=== PATIENT | male | born 1975 | race Caucasian/White ===

== ENCOUNTER → 2017-12-30 08:12 | Outpatient (CLI) | payer OTHER, SELFPAY ==
[2017-12-29 14:38] VITALS: BMI 31.8
[2017-12-30 09:54] LABS: AST(SGOT) 45 U/L (15-37); Alanine Aminotransfer ALT/SGPT 114 U/L (16-61); Albumin, Serum 3.8 g/dL (3.2-5.0); Alkaline Phosphatase 71 U/L (45-117); Cholesterol 224 mg/dL (200); Globulin 3.4 g/dL (2.2-4.2); High Density Lipoprotein 31 mg/dL; Protein, Total 7.2 g/dL (6.4-8.2); Triglycerides 319 mg/dL; Very Low Density Lipoprotein 64 mg/dL (5-40)
== END ==
PROVIDERS: Family Provider Family Medicine; PCP Family Medicine; Referring Provider Internal Medicine Cardiovascular Disease; Visit Provider Internal Medicine Cardiovascular Disease
DX: E78.5 Hyperlipidemia, unspecified (principal)
CPT/HCPCS: 36415; 80061; 80076

== ENCOUNTER → 2018-01-14 07:48 | Outpatient (CLI) | payer OTHER, SELFPAY ==
[2017-12-29 14:38] VITALS: BMI 31.8
--- NOTE | 2018-01-14 07:49 | ECHOD_ITS ---
Reason For Study: CAD/ASHD Procedure This was a 2D Doppler, Color Flow transthoracic echocardiogram. Exam performed in department. Left Ventricle Normal size and thickness. The estimated ejection fraction is 65 %. Normal diastology for age. No regional wall motion abnormalities noted. Right Ventricle Normal size and thickness. Normal systolic function. Atria Normal left atrium. Normal right atrium. Normal atrial septum. Mitral Valve The mitral valve is structurally normal. No prolapse or stenosis seen. Trivial mitral valve insufficiency. Tricuspid Valve Normal tricuspid valve. Trivial tricuspid valve insufficiency. Right ventricular systolic pressure estimated to be 16 mmHg. Aortic Valve Normal aortic valve. Trisinus/trileaflet aortic valve. Pulmonic Valve Normal pulmonic valve. Trivial pulmonic valve insufficiency. Great Vessels Normal aortic root. Normal arch. Normal inferior vena cava. Inferior vena cava collapse with sniff. Pericardium/Pleural No pericardial effusion. MMode/2D Measurements & Calculations LVIDd: 5.5 cm IVSd: 1.1 cm Ao root diam: 3.7 cm LVIDs: 3.8 cm LVPWd: 1.1 cm RVDd: 3.4 cm FS: 31.9 % LAV(MOD-bp): 63.0 ml LA A4 area: 20.7 cm2 LA dimension(2D): 4.2 cm LAV(MOD-bp) Indexed: 28.4 ml/m2 LAV(MOD-sp2): 62.7 ml LAV(MOD-sp4): 62.9 ml RA A4 area: 16.6 cm2 Time Measurements MV dec time: 0.22 sec Doppler Measurements & Calculations MV E max angel: 86.7 cm/sec Lat Peak E' Angel: 11.3 cm/sec Med Peak E' Angel: 9.0 cm/sec MV A max angel: 75.0 cm/sec E/E' lat: 7.7 E/E' med: 9.6 MV E/A: 1.2 Ao V2 max: 113.3 cm/sec LV V1 max: 93.7 cm/sec PA V2 max: 100.5 cm/sec Ao max P.1 mmHg LV V1 max P.5 mmHg PI end-d angel: 100.8 cm/sec TR max angel: 165.5 cm/sec TR max P.0 mmHg Interpretation Summary The estimated ejection fraction is 65 %. Normal diastology for age. Trivial mitral valve insufficiency. Trivial tricuspid valve insufficiency. Right ventricular systolic pressure estimated to be 16 mmHg. There is no comparison study available. Ordering Physician: Leighton Cheung Referring Physician: Tutu Hicks Performed By: Yanni Garcia RDCS, RVT
== END ==
PROVIDERS: Family Provider Family Medicine; PCP Family Medicine; Referring Provider Internal Medicine Cardiovascular Disease; Visit Provider Internal Medicine Cardiovascular Disease
DX: I25.10 Atherosclerotic heart disease of native coronary artery without angina pectoris (principal); I36.1 Nonrheumatic tricuspid (valve) insufficiency; I25.2 Old myocardial infarction; Z95.1 Presence of aortocoronary bypass graft; Z86.74 Personal history of sudden cardiac arrest
CPT/HCPCS: 93306

== ENCOUNTER → 2018-01-20 10:24 | Outpatient (CLI) | payer OTHER, SELFPAY ==
[2017-12-29 14:38] VITALS: BMI 31.8
--- NOTE | 2018-01-20 10:25 | STEWCON_ITS ---
Reason For Study: CAD Stress Results Protocol: Zach Protocol Maximum Predicted HR: 177 bpm Target HR: 150 bpm % Maximum Predicted HR: 93 % DurationHeart Rate Stage (mm:ss) (bpm) BP Comment Baseline 83 116/72No Chest Pain; Definity 0.4 ML Given Zach Protocol Stage I 3:00 121 134/70No Chest Pain Zach Protocol Stage II 3:00 148 146/64No Chest Pain Zach Protocol Stage III 1:01 164 / No Chest Pain; Heel Spur Inflamed Recovery 90 124/78No Chest Pain Stress Duration: 7:01 mm:ss Maximum Stress HR: 164 bpm METS: 10 Baseline Echocardiogram Findings The estimated ejection fraction is 50-55 %. Stress Echo Wall motion Data Resting WM Intermediate WM Stress WM Resting Wall Motion Wall Motion Stress Mid-Anterior : Mildly No regional wall motion hypokinetic. abnormalities noted. EKG Data Normal intervals are noted. The patient exercised according to the regular Zach protocol for a total duration of 7:01. The maximum heart rate attained was 184 beats per minute. This was 103% of maximum predicted heart rate. The patient exercised into stage 3 of the Zach protocol. During stress, there were no ST or T wave changes noted to suggest ischemia. No clinical angina was noted. Interpretation Summary The study was technically difficult. Contrast injection was performed. The estimated ejection fraction is 50-55 %. Mid-Anterior : Mildly hypokinetic Probably normal, adequate, treadmill echocardiogram. Negative for ischemia by EKG and echocardiographic criteria. Pt had subtle baseline mid anterior hypokinesis wihich improved at peak exercise. No anginal symptoms noted. Rare PVC noted. Appropriate blood pressure response to exercise. Average exercise capacity for age. Final LVEF is 4675%. Test terminated due to bone spur in his heal. Decreased sensitivity due to poor echo windows requiring Definity enhancement. No complications. Ordering Physician: Leighton Cheung Referring Physician: Leighton Cheung Performed By: Nancy Hill, RDCS, RVT
--- OUTSIDE RECORDS SUMMARY | 2018-03-08 12:09 | XMS RPT_ITS ---
:1975 Author Organization [facility] Care Team Providers Name Role Phone ZITA DUTTA Referring Unavailable MAXIM GALO Attending Unavailable MAXIM GALO Attending Unavailable MAXIM GALO Referring Unavailable Leighton Cheung Attending Unavailable Leighton Cheung Referring Unavailable Tutu Hicks Primary Care Unavailable Leighton Cheung Consulting Unavailable Leighton Cheung Attending Unavailable Leighton Cheung Referring Unavailable Brown, Tutu Primary Care Unavailable Leighton Cheung Attending Unavailable Brown, Tutu Referring Unavailable Leighton Cheung Attending Unavailable Jonatan, Leighton Referring Unavailable Brown, Tutu Primary Care Unavailable Leighton Cheung Attending Unavailable Leighton Cheung Referring Unavailable Brown, Tutu Primary Care Unavailable Leighton Cheung Attending Unavailable Leighton Cheung Referring Unavailable Brown, Tutu Primary Care Unavailable Leighton Cheung Attending Unavailable Leighton Cheung Referring Unavailable Brown, Tutu Primary Care Unavailable Leighton Cheugn Consulting Unavailable PROBLEMS PROBLEMS DATE TYPE CONDITION / CODE ATTENDING STATUS SOURCE 01/20/2018 Unknown I25.10 - Leighton Cheung Active [facility] Atherosclerotic heart Community disease of [facility] coronary artery Repository without angina pectoris / I25.10(ICD-10) 01/20/2018 Unknown I25.2 - Old Leighton Cheung Active [facility] myocardial infarction Community / I25.2(ICD-10) Hospital Repository 01/20/2018 Unknown Z86.74 - Personal Leighton Cheung Active [facility] history of sudden Community cardiac arrest / Hospital Z86.74(ICD-10) Repository 01/20/2018 Unknown Z95.1 - Presence of Leighton Cheung Active [facility] aortocoronary bypass Community graft / Z95.1(ICD-10) Hospital Repository 01/14/2018 Unknown I36.1 - 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 / Hospital I36.1(ICD-10) Repository 12/30/2017 Unknown E78.5 - Leighton Cheung Active [facility] Hyperlipidemia, Community unspecified / Hospital E78.5(ICD-10) Repository 11/24/2017 Active Pain in right foot / NA Active [facility] M79.671(ICD-10) [facility] Main [place] Repository PROCEDURES PROCEDURES No Procedure Records FoundRESULTS RESULTS LIVER PROFILE Collected: 02/03/2018 Status: F Source: [place] 8:27 AM [facility] REPOSITORY Order Comment: Comments: 6 weeks after statin started Comments: 6 weeks after statin started Comments: 6 weeks after statin started TYPE CODE TESTS RESULT OUT OF RANGE REFERENCE UNITS LAB L501.1500 6.4-8.2 g/dL Normal T PROT 7.0 LAB L501.1800 3.2-5.0 g/dL Normal ALB 3.8 LAB L501.1950 2.2-4.2 g/dL Normal GLOB 3.2 LAB L501.4100 15-37 U/L Normal AST 37 LAB L501.4305 45-117 U/L Normal ALK P 83 LAB L501.4405 16-61 U/L High ALT 95 LAB L501.4600 0.20-1.00 mg/dL Normal T BILI 0.60 LAB L501.4700 0.00-0.30 mg/dL Normal D BILI 0.13 Performed By: #### L500.3400, L500.4100 #### [facility] [address] [place], [place], [address] LIPID PROFILE Collected: 02/03/2018 Status: F Source: [place] 8:27 AM [facility] Order Comment: Comments: 6 weeks after statin started Comments: 6 weeks after statin started Comments: 6 weeks after statin started TYPE CODE TESTS RESULT OUT OF RANGE REFERENCE UNITS LAB L501.4900 200 mg/dL Normal CHOL 160 Result Comment: <200 mg/dL Desirable 200-240 mg/dL Borderline >240 mg/dL High Risk LAB L501.5000 mg/dL High TRIG 299 Result Comment: The drugs N-Acetylcysteine and Metamizole may falsely depress this assay. Serum Triglycerides Reference Interval Normal <150 mg/dL Borderline high 150 - 199 mg/dL High 200 - 499 mg/dL Very High > or = 500 mg/dL LAB L501.6400 mg/dL Low HDL 37 Result Comment: The drugs N-Acetylcysteine and Metamizole may falsely depress this assay. Reference Range HDL <40 mg/dL Low HDL Cholesterol HDL >or= 60 mg/dL High HDL Cholesterol LAB L501.6500 0-130 mg/dL Normal LDL 63 LAB L501.6600 5-40 mg/dL High VLDL 60 Performed By: #### L500.3400, L500.4100 #### [facility] [address] [place], [place], [address] STRESS TEST ECHO W/ Observed: 01/20/2018 Status: F Source: [place] 11:45 AM [facility] Cardiovascular Services [address] [place] [address] Stress Test Echo W/Contrast MR#: [id number] Acct: [id number] Name: KAYLEE VALDIVIA Rep #: [id number] : 1975 42 From: Leighton Cheung MD Primary Care: Tutu Hicks, DO Status: REG CLI Ordering Dr: Leighton Cheung MD Sex: M C Reason For Study: CAD Stress Results Protocol: Zach Protocol Maximum Predicted HR: 177 bpm Target HR: 150 bpm % Maximum Predicted HR: 93 % DurationHeart Rate Stage (mm:ss) (bpm) BP Comment Baseline 83 116/72No Chest Pain; Definity 0.4 ML Given Zach Protocol Stage I 3:00 121 134/70No Chest Pain Zach Protocol Stage II 3:00 148 146/64No Chest Pain Zach Protocol Stage III 1:01 164 / No Chest Pain; Heel Spur Inflamed Recovery 90 124/78No Chest Pain Stress Duration: 7:01 mm:ss Maximum Stress HR: 164 bpm METS: 10 Baseline Echocardiogram Findings The estimated ejection fraction is 50-55 %. Stress Echo Wall motion Data Resting WM Intermediate WM Stress WM Resting Wall Motion Wall Motion Stress Mid-Anterior : Mildly No regional wall motion hypokinetic. abnormalities noted. EKG Data Normal intervals are noted. The patient exercised according to the regular Zach protocol for a total duration of 7:01. The maximum heart rate attained was 184 beats per minute. This was 103% of maximum predicted heart rate. The patient exercised into stage 3 of the Zach protocol. During stress, there were no ST or T wave changes noted to suggest ischemia. No clinical angina was noted. Interpretation Summary The study was technically difficult. Contrast injection was performed. The estimated ejection fraction is 50-55 %. Mid-Anterior : Mildly hypokinetic Probably normal, adequate, treadmill echocardiogram. Negative for ischemia by EKG and echocardiographic criteria. Pt had subtle baseline mid anterior hypokinesis wihich improved at peak exercise. No anginal symptoms noted. Rare PVC noted. Appropriate blood pressure response to exercise. Average exercise capacity for age. Final LVEF is 4675%. Test terminated due to bone spur in his heal. Decreased sensitivity due to poor echo windows requiring Definity enhancement. No complications. Ordering Physician: Leighton Cheung Referring Physician: Leighton Cheung Performed By: Mahesh Hill, RDCS, RVT 01/20/18 1144 Date Leighton Cheung MD CC: Leighton Cheung MD; Tutu Hicks DO Date Dictated: 01/20/18 1030 Date Transcribed: 01/20/18 1144 Barrel Plater: Signed ECHOCARDIOGRAM COMPLETE Observed: 01/14/2018 Status: F Source: [place] 10:46 AM [facility] Cardiovascular Services [address] [place] [address] Echo Complete 01/14/18 0759 MR#: [id number] Acct: [id number] Name: KAYLEE VALDIVIA Rep #: [id number] : 1975 42 From: Leighton Cheung MD Attending Dr: Leighton Cheung MD Status: REG CLI Ordering Dr: Leighton Cheung MD Date: 01/14/18 Location: [facility] Sex: M C Admitted: Reason For Study: CAD/ASHD Procedure This was a 2D Doppler, Color Flow transthoracic echocardiogram. Exam performed in department. Left Ventricle Normal size and thickness. The estimated ejection fraction is 65 %. Normal diastology for age. No regional wall motion abnormalities noted. Right Ventricle Normal size and thickness. Normal systolic function. Atria Normal left atrium. Normal right atrium. Normal atrial septum. Mitral Valve The mitral valve is structurally normal. No prolapse or stenosis seen. Trivial mitral valve insufficiency. Tricuspid Valve Normal tricuspid valve. Trivial tricuspid valve insufficiency. Right ventricular systolic pressure estimated to be 16 mmHg. Aortic Valve Normal aortic valve. Trisinus/trileaflet aortic valve. Pulmonic Valve Normal pulmonic valve. Trivial pulmonic valve insufficiency. Great Vessels Normal aortic root. Normal arch. Normal inferior vena cava. Inferior vena cava collapse with sniff. Pericardium/Pleural No pericardial effusion. MMode/2D Measurements AND Calculations LVIDd: 5.5 cm IVSd: 1.1 cm Ao root diam: 3.7 cm LVIDs: 3.8 cm LVPWd: 1.1 cm RVDd: 3.4 cm FS: 31.9 % LAV(MOD-bp): 63.0 ml LA A4 area: 20.7 cm2 LA dimension(2D): 4.2 cm LAV(MOD-bp) Indexed: 28.4 ml/m2 LAV(MOD-sp2): 62.7 ml LAV(MOD-sp4): 62.9 ml RA A4 area: 16.6 cm2 Time Measurements MV dec time: 0.22 sec Doppler Measurements AND Calculations MV E max angel: 86.7 cm/sec Lat Peak E' Angel: 11.3 cm/sec Med Peak E' Angel: 9.0 cm/sec MV A max angel: 75.0 cm/sec E/E' lat: 7.7 E/E' med: 9.6 MV E/A: 1.2 Ao V2 max: 113.3 cm/sec LV V1 max: 93.7 cm/sec PA V2 max: 100.5 cm/sec Ao max P.1 mmHg LV V1 max P.5 mmHg PI end-d angel: 100.8 cm/sec TR max angel: 165.5 cm/sec TR max P.0 mmHg Interpretation Summary The estimated ejection fraction is 65 %. Normal diastology for age. Trivial mitral valve insufficiency. Trivial tricuspid valve insufficiency. Right ventricular systolic pressure estimated to be 16 mmHg. There is no comparison study available. Ordering Physician: Leighton Cheung Referring Physician: Tutu Hicks Performed By: Yanni Garcia RDCS, RVT 01/14/18 1045 Date Leighton Cheung MD CC: Leighton Cheung MD; Tutu Hicks DO Date Dictated: 01/14/18 0759 Date Transcribed: 01/14/18 1045 Barrel Plater: Signed PROGRESS Observed: 01/04/2018 Status: COMPLETED Source: [place] 9:42 PM [facility] REPOSITORY O ID: [id number] Author: Maxim Galo Service: (none) Author Type: Physician Type: Progress Notes Filed: 01/04/2018 9:46 PM Note Text: [id number] Mr. Valdivia was last seen for right foot traumatic plantar fascia injury two weeks. had the following plan implemented NSAID , cam walker, stretching program He presents today for routine follow-up. History: his pain intensity is 2/10. The patient denies swelling, warmth, discharge, drainage, fevers, chills, sweats. He reports compliance with therapy, sling/splint/ambulatory device/dressing/wound care, and the use of medications. Previous treatments have included Rx NSAIDs and home rehabilitation. He reports no change in past medical AND surgical history, medications, allergies, social history, family history and review of systems since last visit, with the exception of the following: None Radiographs: Not applicable Physical Examination: Range of Motion: Right dorsiflexion/plantarflexion 20 - 40 degrees. Normal eversion, inversion, forefoot, midfoot, and hindfoot motion Palpation: Mild tenderness to palpation plantar fascia . Stability: Negative: Anterior drawer test, Talar tilt, Stress external rotation test, and Squeeze test. Negative Patricia's, calf tenderness or palpable cords. Bilateral lower extremities show equal motion of the hips and knees. Normal strength, tone, and stability of the remainder of both lower extremities distally. Neurologic Exam: Intact sensation and reflexes in both lower extremities. Vascular: 2+ pedal pulses of both lower extremities. Procedure: Not applicable Impression: 1. right Plantar fasciitis- improved Plan: Continue current treatment. Medication: Mobic 7.5mg - 15mg PO q Day with meals prn Continue independent exercise program . Maxim Galo MD CNOV Observed: 01/01/2018 Status: COMPLETED Source: [place] 11:15 AM [facility] REPOSITORY Office Visit ([id number]) KAYLEE VALDIVIA ([id number]) 1975 M Date Time Provider Department 01/01/18 11:15 AM MAXIM GALO During your visit today, we recorded the following information about you: Weight Height 102.1 kg 1.803 m Maxim Galo MD 01/04/2018 9:46 PM Signed [id number] Mr. Valdivia was last seen for right foot traumatic plantar fascia injury two weeks. had the following plan implemented NSAID , cam walker, stretching program He presents today for routine follow-up. History: his pain intensity is 2/10. The patient denies swelling, warmth, discharge, drainage, fevers, chills, sweats. He reports compliance with therapy, sling/splint/ambulatory device/dressing/wound care, and the use of medications. Previous treatments have included Rx NSAIDs and home rehabilitation. He reports no change in past medical AND surgical history, medications, allergies, social history, family history and review of systems since last visit, with the exception of the following: None Radiographs: Not applicable Physical Examination: Range of Motion: Right dorsiflexion/plantarflexion 20 - 40 degrees. Normal eversion, inversion, forefoot, midfoot, and hindfoot motion Palpation: Mild tenderness to palpation plantar fascia . Stability: Negative: Anterior drawer test, Talar tilt, Stress external rotation test, and Squeeze test. Negative Patricia's, calf tenderness or palpable cords. Bilateral lower extremities show equal motion of the hips and knees. Normal strength, tone, and stability of the remainder of both lower extremities distally. Neurologic Exam: Intact sensation and reflexes in both lower extremities. Vascular: 2+ pedal pulses of both lower extremities. Procedure: Not applicable Impression: 1. right Plantar fasciitis- improved Plan: Continue current treatment. Medication: Mobic 7.5mg - 15mg PO q Day with meals prn Continue independent exercise program . Maxim Galo MD Referring Provider: MAXIM GALO [[id number]] Allergies As of Date: 01/01/2018 (No Known Allergies) Date Reviewed: 01/01/2018 Reviewed by: Maxim Galo - Fully Assessed Reason for Visit: Established Patient [175] Right Foot Pain [Other] Primary Visit Diagnosis:Traumatic plantar fasciitis [S93.699A] Prescriptions as of 01/01/2018 Sig: MELOXICAM 7.5 MG TABLET Take 1 tablet by mouth once d* TADALAFIL 10 MG TABLET Take 1 tablet by mouth. TAKE * TRIAMCINOLONE ACETONIDE 0.1 %* Apply 1 application to affect* ADULT ASPIRIN EC LOW STRENGTH* Take one(1) tablet daily. LISINOPRIL 10 MG TABLET Take one(1) tablet daily. DAILY MULTIVITAMIN TABLET Take one(1) tablet daily. Problem List As Of Date: 01/01/2018 (None) Encounter Status:Closed by MAXIM GALO MD on 01/04/18 LIVER PROFILE Collected: 12/30/2017 Status: F Source: [place] 8:18 AM [facility] [place] Order Comment: Comments: baseline before med Comments: baseline before med TYPE CODE TESTS RESULT OUT OF RANGE REFERENCE UNITS LAB L501.1500 6.4-8.2 g/dL Normal T PROT 7.2 LAB L501.1800 3.2-5.0 g/dL Normal ALB 3.8 LAB L501.1950 2.2-4.2 g/dL Normal GLOB 3.4 LAB L501.4100 15-37 U/L High AST 45 LAB L501.4305 45-117 U/L Normal ALK P 71 LAB L501.4405 16-61 U/L High ALT 114 LAB L501.4600 0.20-1.00 mg/dL Normal T BILI 0.50 LAB L501.4700 0.00-0.30 mg/dL Normal D BILI 0.10 Performed By: #### L500.3400, L500.4100 #### [facility] [address] [place], [address] LIPID PROFILE Collected: 12/30/2017 Status: F Source: [place] 8:18 AM [facility] [place] Order Comment: Comments: baseline before med Comments: baseline before med TYPE CODE TESTS RESULT OUT OF RANGE REFERENCE UNITS LAB L501.4900 200 mg/dL High CHOL 224 Result Comment: <200 mg/dL Desirable 200-240 mg/dL Borderline >240 mg/dL High Risk LAB L501.5000 mg/dL High TRIG 319 Result Comment: The drugs N-Acetylcysteine and Metamizole may falsely depress this assay. Serum Triglycerides Reference Interval Normal <150 mg/dL Borderline high 150 - 199 mg/dL High 200 - 499 mg/dL Very High > or = 500 mg/dL LAB L501.6400 mg/dL Low HDL 31 Result Comment: The drugs N-Acetylcysteine and Metamizole may falsely depress this assay. Reference Range HDL <40 mg/dL Low HDL Cholesterol HDL >or= 60 mg/dL High HDL Cholesterol LAB L501.6500 0-130 mg/dL Normal LDL 129 LAB L501.6600 5-40 mg/dL High VLDL 64 Performed By: #### L500.3400, L500.4100 #### [facility] [address] [place], [address] CARDIOLOGY VISIT Observed: 12/29/2017 Status: F Source: [place] REPORT 3:15 PM [facility] [place] [facility] [address] [place] [address] OFFICE VISIT Date of Service: 12/29/17 MR#: [id number] Acct: [id number] Name: KAYLEE VALDIVIA Rep #: [id number] : 1975 Provider: Leighton Cheung MD Age/Sex: 42/M Location: [facility] Status: Signed HPI HPI Chief Complaint: CAD s/p CABG, SCD Details: KAYLEE VALDIVIA, is a 42 M who presents to the office today for cardiac follow-up. He was age 30, while playing basketball, he had a cardiac arrest which he survived. He was emergently transferred to [facility] where he underwent emergent left heart catheterization by Dr. Rendon, which found significant left main and LAD. His RCA was nondominant and small and free of significant disease. He underwent emergent two-vessel bypass surgery by Dr. Mcdonald with a MONTGOMERY to the LAD and a saphenous vein graft to the circumflex about 12 years ago at [facility]. He followed up with Dr. Quick in 2011 but has not followed up with a commutator tester since that time. Patient stopped his baby aspirin, beta blockers and statin as well. His last echocardiogram dated 10/07/2006 showed an EF of 55%, and normal LV function. Since his last visit apparently he has had no chest pain, angina, shortness of breath or dyspnea on exertion. He is really on no medications. In our office today's blood pressure is 120/70, pulse is 68 and regular. His physical exam is as below. Lipids are pending. EKG dated 12/29/17 showed normal sinus rhythm, normal axis, normal intervals, no evidence of previous myocardial infarction. 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 Required: No Accompanied by: Significant Other Is patient in pain?: No Allergies No Known Allergies Allergy (Verified 12/29/17 14:41) Medications aspirin 81 mg tablet,delayed release 81 mg PO DAILY #30 tab 12/29/17 [Rx Confirmed 12/29/17] atorvastatin 20 mg tablet 20 mg PO DAILY #30 tab 12/29/17 [Rx Confirmed 12/29/17] metoprolol tartrate 25 mg tablet 12.5 mg PO BID #30 tab 12/29/17 [Rx Confirmed 12/29/17] omeprazole magnesium 20 mg tablet,delayed release 20 mg PO DAILY 12/29/17 [History Confirmed 12/29/17] [facility] Medical History Nonrheumatic tricuspid valve regurgitation (Chronic) Hyperlipidemia (Chronic) 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 successfully resuscitated (Chronic 08/05/06) Surgical History History of left heart catheterization (Chronic 08/06/06) 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) History of mandibular surgery (Chronic) Family History Father Negative for ASCVD Mother Negative for ASCVD Grandfather CVA (cerebral vascular accident) Social History Smoking Status: Current some day smoker tobacco type: cigars per week: 5 ROS Const Const: Positive for other (Feels well, just realized he probably ought to see cardiology with his hx); negative for fatigue, weakness, body ache, fever(s), headache(s), chills, frequent falls, night sweats, daytime sleepiness, difficulty sleeping, excessive sweating, weight gain, weight loss, increased appetite, poor appetite or anorexia Eyes Eyes: Negative for blind spots, loss of peripheral vision, transient loss of vision, blurry vision, change in vision, double vision, floaters, tunnel vision or other ENT ENT: Negative for headache(s), dizziness, hearing loss, tinnitus, Nosebleed/epistaxis, balance problems, post nasal drip, lip swelling, tongue swelling, bleeding gums, hoarseness, neck pain, dry mouth or other Cardio Chest Pain: No Palpitations: No Muscle aches with walking: None Resp Respiratory: Negative for SOB with activity, SOB at rest, SOB orthopnea\SOB lying down, Cough, Coughing up blood/hemoptysis, chest congestion, pain on inspiration, snoring, stridor, wheezing, crackles, paroxysmal nocturnal dyspnea or other GI GI: Negative nausea, vomiting, heartburn, constipation, belching, bloating, cramping, vomiting blood/hematemesis, bright, red blood in stools, black,tarry stools, loose stools, Difficulty Swallowing or other : Negative for hematuria, frequent nighttime urination/ nocturia, erectile dysfunction or abnormal vaginal bleeding Musc Musc: Negative for balance problems, muscle aches/ myalgia, muscle weakness or joint pain Skin Skin: Negative redness, non-healing lesions, rash, unusual bruising, skin ulcer, wounds, jaundice or other Neuro Neuro: Negative for weakness, headache(s), frequent falls, blurry vision, double vision, dizziness, lightheadedness, near syncope, syncope, orthostatic symptoms, confusion, memory loss, restless legs, vertigo, seizures, lack of coordination or other Orlin Hematologic/Lymphatic: Negative for easy bleeding, easy bruising, enlarged lymph nodes or other Endo Endo: Negative for fatigue, excessive sweating, cold intolerance, heat intolerance, flushing, increased thirst/drinking, increased hunger, hair loss, hair growth or other Psych Psych: Negative for anxiety, depression, thoughts of harming anyone, thoughts of harming yourself, visual hallucinations, panic attacks or audible hallucinations Allergy Allergy/Immunology: Negative for lip swelling, Negative for tongue swelling, Negative for rash, Negative for throat swelling, Negative for hives Cardiology Exam Const Appearance: cooperative, healthy appearing and no acute distress Nutritional Appearance: well nourished Orientation: alert, oriented x3 and oriented to person Head Head: normal to inspection, atraumatic and normocephalic Nose: external nose normal Face and Sinus: face symmetric Mouth: oral mucosae normal Eyes General: appearance normal, both eyes and all related structures Eyelids: eyelids normal Conjunctivae: conjunctivae normal Pupils: PERRL and normal by confrontation EOM: EOM intact bilaterally Neck Neck: normal visual inspection and full ROM Carotids: normal carotid upstroke Chest Chest inspection: normal inspection of the chest Auscultation: Bilateral: Clear to Auscultation Cardio Palpation: normal PMI Rate: regular rate Rhythm: regular rhythm Heart sounds: S1 normal and S2 normal GI GI: normal to inspection, no hepatosplenomegaly and bowel sounds present Neuro General: alert, oriented x3, awake, CN's II-XI intact bilaterally and moves all extremities Skin Skin: no rashes or lesions noted Extremities Pulses: Normal: Right Femoral Pulse, Left Femoral Pulse, Right Dorsalis Pedis Pulse, Left Dorsalis Pedis Pulse, Right Posterior Tibial Pulse, Left Posterior Tibial Pulse, Right Radial Pulse, Left Radial Pulse Lower Extremity Edema: None: Bilateral Psych Psychological: normal affect Assessment AND Plan 1. Atherosclerotic heart disease of [place] coronary artery without angina pectoris I25.10 Patient was age 30 at time: MONTGOMERY to LAD and SVG to CX per Dr. Bashir, [facility] Plan 1. Coronary artery disease: Patient has had no exertional anginal symptoms, palpitations, lightheadedness, dizziness, or shortness of breath. He is not been any cardiac medications for the better part of 10 years from his own choosing. He denied any side effects at the time of his discontinuation of his medicines. I recommended he resume his baby aspirin, Lopressor 12.5 mill grams p.o. twice daily, and Lipitor 20 mill grams p.o. nightly. In addition I recommend surveillance echocardiogram to determine if he said any silent myocardial infarction and to assess his LV function and pulmonary pressures. In addition I recommend a surveillance stress echocardiogram as it is been 12 years since his bypass surgery and he had a vein graft to the circumflex system. If this is grossly abnormal for ischemia, he may require repeat catheterization and graft angiography. I reinforced to the patient that he requires regular cardiac visits, and that he should see us every 6 months at least unless he has symptoms. Strongly encouraged him to discontinue all tobacco products as well. Orders Orders: 2. Hyperlipidemia E78.5 Plan 2. Hyperlipidemia: Recommend obtaining a baseline fasting lipid profile and reinitiating Lipitor 20 mill grams p.o. nightly. We will repeat his lipid profile in 6 weeks time. 3. Return office in 6 months. This note was generated using a voice recognition system and there may be incorrect words, spelling or punctuation that were not noted when reviewing the office note prior to saving. 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 I25.10 Hyperlipidemia E78.5 12/29/17 1515 <Electronically signed by Leighton Cheung MD> Date Leighton Cheung MD Cosigner Signature: Date (if applicable) CC: Tutu Hicks DO 12 LEAD EKG PERFORMED Observed: 12/29/2017 Status: F Source: [facility] 2:45 PM [facility] [place] [facility] [address] [place] [address] 12 Lead EKG performed by [facility] 12/29/17 1444 MR#: [id number] Acct: [id number] Name: KAYLEE VALDIVIA Rep #: [id number] : 1975 42 From: Leighton Cheung MD Attending Dr: Leighton Cheung MD Status: DEP AMB Ordering Dr: Leighton Cheung MD Date: 12/29/17 [place] [facility] [place] M C Admitted: [facility]/12 Lead EKG performed by [facility] ECG Report Interpretation Sinus Rhythm -Left atrial enlargement. BORDERLINEElectronically signed on 01/22/2018 at 15:13 by Leighton Cheung Software Version [id number] 01/22/18 1516 Date Leighton Cheung MD CC: Tutu DO Kurt Date Dictated: 12/29/17 1444 Date Transcribed: 12/29/174 Barrel Plater: Signed PROGRESS Observed: 12/18/2017 Status: COMPLETED Source: [place] 8:12 AM [facility] [place] REPOSITORY O ID: [id number] Author: Maxim Galo Service: (none) Author Type: Physician Type: Progress Notes Filed: 12/18/2017 8:19 AM Note Text: DEPARTMENT OF ORTHOPAEDICS HISTORY OF PRESENT ILLNESS: This is a pleasant 42 year old male, who presents today with a chief complaint of right heel pain. He complains of sharp pain about the plantar aspect of approximately 3 weeks duration. This pain is intermittent. He reports trauma( developed pain on the sole of the foot while playing basketball). He complains that the pain is 5/10 at it's very worst. He denies nocturnal pain. The pain is exacerbated by walking, managing stairs and prolonged standing. Previous treatments have included none. He denies proximal radiation. He denies distal radiation. He denies numbness, tingling, or electric shocks. He denies popping, clicking, catching, locking, grinding, instability, buckling, or giving way. The patient's walking tolerance is moderate before resting. He denies swelling and/or warmth. PAST MEDICAL HISTORY Diagnosis Date - Coronary atherosclerosis of unspecified type of vessel, northway or graft - Pure hypercholesterolemia - Unspecified essential hypertension PAST SURGICAL HISTORY Procedure Laterality Date - MANDIBLE FRACTURE CARE - PAST SURGICAL HISTORY OF CABG Current Outpatient Prescriptions: meloxicam (MOBIC) 7.5 mg tablet Take 1 tablet by mouth once daily. Disp: 30 tablet Rfl: 2 Tadalafil (CIALIS) 10 mg tablet Take 1 tablet by mouth. TAKE 1-2 HOURS BEFORE SEXUAL INTERCOURSE NEEDED. (Patient not taking: Reported on 11/24/2017 ) Disp: 10 tablet Rfl: 4 triamcinolone acetonide 0.1 % cream Apply 1 application to affected area three times daily. Apply to affected area. (Patient not taking: Reported on 12/16/2017 ) Disp: 60 g Rfl: 0 aspirin(ADULT ASPIRIN EC LOW STRENGTH 81 MG TAB, DELAYED RELEASE) Take one(1) tablet daily. Disp: Rfl: 0 LISINOPRIL 10 MG TAB Take one(1) tablet daily. Disp: Rfl: 0 multivitamins(DAILY MULTIVITAMIN TAB) Take one(1) tablet daily. Disp: Rfl: 0 No current facility-administered medications for this visit. 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 MUSCULOSKELETAL: See HPI. PSYCH: Negative for sleep disturbance, mood disorder and recent psychosocial stressors. HEMATOLOGY Negative for prolonged bleeding, bruising easily, and swollen nodes. ENDOCRINE: Negative for cold or heat intolerance, polyuria, polydipsia and goiter. NEURO: negative for lightheadedness, dizziness, tremor, gait imbalance, syncope and seizures. RADIOGRAPHS: right foot series dated 11/24/17 revealedAP and lateral views of the right calcaneus were obtained. ?There is no evidence of acute displaced fracture, dislocation, or significant joint space narrowing. ?There is a small plantar calcaneal spur. OTHER STUDIES: Not applicable. PHYSICAL EXAM: Ht 5' 11 (1.80m) Wt 225 lb (102.1kg) BMI 31.39 kg/(m2). General: Appears stated age, well built, in no apparent distress. Psychiatric: Mood and affect appropriate. Alert and oriented x3. Musculoskeletal Exam: Gait and Station antalgic: right. RIGHT FOOT AND ANKLE EXAM: Inspection: No evidence of eythema, warmth, bruising, abrasions, scars, swelling, atrophy or deformity about bilateral lower extremities. No evidence of surgical incisions. Range of Motion: Dorsiflexion/Plantarflexion 20-40 degrees. Normal eversion, inversion, forefoot, midfoot, and hindfoot motion. Palpation: Positive tenderness to palpation: plantar fascia just distal to the origin Stability: Negative: Anterior drawer test, Talar tilt, Stress external rotation test, and Squeeze test. Negative Patricia's, calf tenderness or palpable cords. Bilateral lower extremities show equal motion of the hips and knees. Normal strength, tone, and stability of the remainder of both lower extremities distally. Neurologic Exam: Intact sensation and reflexes in both lower extremities. Vascular: 2+ pedal pulses of both lower extremities. PROCEDURE: Not applicable IMPRESSION: 1. right Plantar fasciitis. PLAN: 1. Medication: Mobic 7.5mg - 15mg PO q Day with meals. 2. Test(s)/Imaging/Referral(s): None. 3. Intervention: Graduated physical therapy program and Cam Walker weight-bear as tolerated 4. Follow-up: For repeat clinical evaluation. Maxim Galo MD I would like to thank you for the kind referral of . I appreciate the opportunity to be involved in his care. Please do not hesitate to call upon me if I may be of further assistance. JAZMIN Observed: 12/16/2017 Status: COMPLETED Source: [place] 11:00 AM [facility] REPOS[facility]ORY Office Visit (ORMDNA) KAYLEE VALDIVIA ([id number]) 1975 M Date Time Provider Department 12/16/17 11:00 AM MAXIM GALO During your visit today, we recorded the following information about you: Weight Height 102.1 kg 1.[address] 12/16/2017 11:33 AM Signed Patient presents with: Pain: right heel Maxim Galo MD 12/18/2017 8:19 AM Signed DEPARTMENT OF ORTHOPAEDICS HISTORY OF PRESENT ILLNESS: This is a pleasant 42 year old male, who presents today with a chief complaint of right heel pain. He complains of sharp pain about the plantar aspect of approximately 3 weeks duration. This pain is intermittent. He reports trauma( developed pain on the sole of the foot while playing basketball). He complains that the pain is 5/10 at it's very worst. He denies nocturnal pain. The pain is exacerbated by walking, managing stairs and prolonged standing. Previous treatments have included none. He denies proximal radiation. He denies distal radiation. He denies numbness, tingling, or electric shocks. He denies popping, clicking, catching, locking, grinding, instability, buckling, or giving way. The patient's walking tolerance is moderate before resting. He denies swelling and/or warmth. PAST MEDICAL HISTORY Diagnosis Date - Coronary atherosclerosis of unspecified type of vessel, northway or graft - Pure hypercholesterolemia - Unspecified essential hypertension PAST SURGICAL HISTORY Procedure Laterality Date - MANDIBLE FRACTURE CARE - PAST SURGICAL HISTORY OF CABG Current Outpatient Prescriptions: meloxicam (MOBIC) 7.5 mg tablet Take 1 tablet by mouth once daily. Disp: 30 tablet Rfl: 2 Tadalafil (CIALIS) 10 mg tablet Take 1 tablet by mouth. TAKE 1-2 HOURS BEFORE SEXUAL INTERCOURSE NEEDED. (Patient not taking: Reported on 11/24/2017 ) Disp: 10 tablet Rfl: 4 triamcinolone acetonide 0.1 % cream Apply 1 application to affected area three times daily. Apply to affected area. (Patient not taking: Reported on 12/16/2017 ) Disp: 60 g Rfl: 0 aspirin(ADULT ASPIRIN EC LOW STRENGTH 81 MG TAB, DELAYED RELEASE) Take one(1) tablet daily. Disp: Rfl: 0 LISINOPRIL 10 MG TAB Take one(1) tablet daily. Disp: Rfl: 0 multivitamins(DAILY MULTIVITAMIN TAB) Take one(1) tablet daily. Disp: Rfl: 0 No current facility-administered medications for this visit. 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 MUSCULOSKELETAL: See HPI. PSYCH: Negative for sleep disturbance, mood disorder and recent psychosocial stressors. HEMATOLOGY Negative for prolonged bleeding, bruising easily, and swollen nodes. ENDOCRINE: Negative for cold or heat intolerance, polyuria, polydipsia and goiter. NEURO: negative for lightheadedness, dizziness, tremor, gait imbalance, syncope and seizures. RADIOGRAPHS: right foot series dated 11/24/17 revealedAP and lateral views of the right calcaneus were obtained. ?There is no evidence of acute displaced fracture, dislocation, or significant joint space narrowing. ?There is a small plantar calcaneal spur. OTHER STUDIES: Not applicable. PHYSICAL EXAM: Ht 5' 11 (1.80m) Wt 225 lb (102.1kg) BMI 31.39 kg/(m2). General: Appears stated age, well built, in no apparent distress. Psychiatric: Mood and affect appropriate. Alert and oriented x3. Musculoskeletal Exam: Gait and Station antalgic: right. RIGHT FOOT AND ANKLE EXAM: Inspection: No evidence of eythema, warmth, bruising, abrasions, scars, swelling, atrophy or deformity about bilateral lower extremities. No evidence of surgical incisions. Range of Motion: Dorsiflexion/Plantarflexion 20-40 degrees. Normal eversion, inversion, forefoot, midfoot, and hindfoot motion. Palpation: Positive tenderness to palpation: plantar fascia just distal to the origin Stability: Negative: Anterior drawer test, Talar tilt, Stress external rotation test, and Squeeze test. Negative Patricia's, calf tenderness or palpable cords. Bilateral lower extremities show equal motion of the hips and knees. Normal strength, tone, and stability of the remainder of both lower extremities distally. Neurologic Exam: Intact sensation and reflexes in both lower extremities. Vascular: 2+ pedal pulses of both lower extremities. PROCEDURE: Not applicable IMPRESSION: 1. right Plantar fasciitis. PLAN: 1. Medication: Mobic 7.5mg - 15mg PO q Day with meals. 2. Test(s)/Imaging/Referral(s): None. 3. Intervention: Graduated physical therapy program and Cam Walker weight-bear as tolerated 4. Follow-up: For repeat clinical evaluation. Maxim Galo MD I would like to thank you for the kind referral of . I appreciate the opportunity to be involved in his care. Please do not hesitate to call upon me if I may be of further assistance. Referring Provider: SELF [[id number]] Allergies As of Date: 12/16/2017 (No Known Allergies) Date Reviewed: 12/16/2017 Reviewed by: Naima MAGAÑA - Fully Assessed Reason for Visit: Pain [78] Cmt: right heel Primary Visit Diagnosis:Traumatic plantar fasciitis [S93.699A] Order(s):meloxicam (MOBIC) 7.5 mg tabletTake 1 tablet by mouth once daily.Disp: 30 tabletRfl: 2 Prescriptions as of 12/16/2017 Sig: MELOXICAM 7.5 MG TABLET Take 1 tablet by mouth once d* TADALAFIL 10 MG TABLET Take 1 tablet by mouth. TAKE * Patient not taking: Reported on 11/24/2017 TRIAMCINOLONE ACETONIDE 0.1 %* Apply 1 application to affect* Patient not taking: Reported on 12/16/2017 ADULT ASPIRIN EC LOW STRENGTH* Take one(1) tablet daily. LISINOPRIL 10 MG TABLET Take one(1) tablet daily. DAILY MULTIVITAMIN TABLET Take one(1) tablet daily. Problem List As Of Date: 12/16/2017 (None) Visit Notes: >> Naima Verdin CT ThuDec 16, 2017 11:09 AM Status: Signed Patient presents with: Pain: right heel Prescriptions ordered this encounter Disp Refills Start End MELOXICAM 7.5 MG TABLET 30 t* 2 12/16/2017 Route: ORAL Sig: Take 1 tablet by mouth once daily. Disposition: Return in about 2 weeks (around 12/30/2017). Follow-up and Disposition History Recorded Encounter Status:Closed by MAXIM GALO MD on 12/18/17 PROGRESS Observed: 11/24/2017 Status: COMPLETED Source: [place] 8:22 PM [facility] [place] REPOSITORY HNO ID: [id number] Author: Zita Dutta Service: (none) Author Type: Nurse Practitioner Type: Progress Notes Filed: 11/24/2017 8:35 PM Note Text: Subjective HPI Pt presents with c/o right heel pain x 1 day. Hx of chronic intermittent heel pain. Would have mild heel pain that would last several days and resolve without intervention. Was playing basketball last night and felt a pop under heel. Heel is very painful to the touch, can hardly bear wt d/t pain. Heel is also swollen. Took one dose of ibuprofen. Has not applied ice or heat. Review of Systems Constitutional: Negative for chills and fever. Musculoskeletal: Negative for falls. Objective Physical Exam Constitutional: He is oriented to person, place, and time and well-developed, well-nourished, and in no distress. No distress. Musculoskeletal: Right foot: There is tenderness, bony tenderness and swelling. There is normal range of motion, normal capillary refill, no crepitus, no deformity and no laceration. Full active ROM against resistance. Tender on palpation. Mild edema noted. Cap refill 2 sec. Pedal pulses 2+. Mildly altered gait. Neurological: He is alert and oriented to person, place, and time. Skin: Skin is warm and dry. He is not diaphoretic. BP 142/84 Pulse 74 Temp 36.5 ?C (97.7 ?F) (Tympanic) Resp 16 Wt 100.6 kg (221 lb 12.8 oz) .Patient presents with: right heel pain: injured it last night playing basketball PAST MEDICAL HISTORY Diagnosis Date - Coronary atherosclerosis of unspecified type of vessel, northway or graft - Pure hypercholesterolemia - Unspecified essential hypertension PAST SURGICAL HISTORY Procedure Laterality Date - MANDIBLE FRACTURE CARE - PAST SURGICAL HISTORY OF CABG ALLERGIES Patient has no known allergies. MEDICATIONS diclofenac potassium (CATAFLAM) 50 mg tablet Take 1 tablet by mouth three times daily for 7 days. Take with food. Tadalafil (CIALIS) 10 mg tablet Take 1 tablet by mouth. TAKE 1-2 HOURS BEFORE SEXUAL INTERCOURSE NEEDED. triamcinolone acetonide 0.1 % cream Apply 1 application to affected area three times daily. Apply to affected area. aspirin(ADULT ASPIRIN EC LOW STRENGTH 81 MG TAB, DELAYED RELEASE) Take one(1) tablet daily. LISINOPRIL 10 MG TAB Take one(1) tablet daily. multivitamins(DAILY MULTIVITAMIN TAB) Take one(1) tablet daily. FAMILY HISTORY Problem Relation Age of Onset - None Mother - None Father Social History Substance Use Topics - Smoking status: Former Smoker - Smokeless tobacco: Current User Types: Snuff Comment: 2cans per week - Alcohol use Yes ASSESSMENT/PLAN: 1. Pain of right heel - ICD9: 729.5, ICD10: M79.671 (primary diagnosis) - XR CALCANEUS 2V AXIAL/LAT RT Small heel spur. - DICLOFENAC POTASSIUM 50 MG TABLET 2. Heel spur, right - ICD9: 726.73, ICD10: M77.31 Reviewed and printed heel spur education. May f/u with podiatry if sx persist or become worse. The patient is instructed to return or seek emergency treatment if symptoms become worse or with any acute change in condition. The patient verbalizes understanding and is in agreement with plan of care. Zita Dutta CNP XR CALCANEUS 2V Observed: 11/24/2017 Status: F Source: [place] AXIAL/LAT RT 7:07 PM [facility] [place] REPOSITORY * * *Final Report* * * DATE OF EXAM: Nov 24 2017 7:07PM WOX [id number] - XR CALCANEUS 2V AXIAL/LAT RT / PROCEDURE REASON: Pain of right heel * * * * Physician Interpretation * * * * HISTORY: 42-year-old man with right heel pain RESULT: AP and lateral views of the right calcaneus were obtained. There is no evidence of acute displaced fracture, dislocation, or significant joint space narrowing. There is a small plantar calcaneal spur. IMPRESSION: Calcaneal spur Barrel Plater: [place] Transcribe Date/Time: Nov 24 2017 7:07P Dictated by : CARO MEDINA MD This examination was interpreted and the report reviewed and electronically signed by: CARO MEDINA MD on Nov 24 2017 7:09PM EST [id number] PROGRESS Observed: 11/24/2017 Status: COMPLETED Source: [place] 6:59 PM [facility] REPOSITORY HNO ID: [id number] Author: Daniel Garvin (Rt) Carlota Martel Service: (none) Author Type: Ski Base Trimmer Type: Progress Notes Filed: 11/24/2017 7:07 PM Note Text: Radiology Service Progress Note PATIENT NAME: Zoltan Valdivia DATE OF SERVICE: November 24, 2017 TIME: 6:59 PM PATIENT IDENTITY VERIFICATION COMPLETED USING TWO (2) METHODS: Patient confirmed name verbally and Date of . PATIENT GENDER DATA: Male PATIENT RELEVANT IMPLANT DATA REVIEWED: Not Applicable RADIOLOGY DEPARTMENT: General X-ray: Exam(s) Completed: Lower Extremity X-Ray(s): Heel, Right: PERIPHERAL IV DATA: Not applicable SIGNED BY: RT Paddy November 24, 2017 6:59 PM CNOV Observed: 11/24/2017 Status: COMPLETED Source: [place] 6:45 PM [facility] REPOSITORY Office Visit (WSTR) SHEAZOLTAN Virgie ([id number]) 1975 M Date Time Provider Department 11/24/17 6:45 PM ZITA DUTTA [facility] During your visit today, we recorded the following information about you: Temperature Pulse Respiration Blood pressure 97.7 degrees 74/minute 16/minute 142/84 Weight 100.6 kg Zita Dutta APRN.TUBE BENDING MACHINE OPERATOR 11/24/2017 7:26 PM Signed 1. STRETCHING -- Morning Stretches -- Before getting out of bed in the morning, perform the following stretches: Keeping the knee straight,use a band of material around the ball of the foot. Pull the toes up towards the knee and hold for 5 seconds. Repeat this procedure 5 or 6 times before stepping out of bed. Daily Calf Stretches -- Placing the forefoot ( above the heel ) against the wall or a step, lean forward until calf stretching is felt. Hold this position for 20 seconds and then relax. Repeat this procedure for 2- 3 minutes in the morning, afternoon, and evening. 2. ICE -- Take a styrofoam cup with water and place it in the freezer. Take the cup out of the freezer and apply the ice directly on the heel. Massage the ice in the area of tenderness for 20 minutes every evening. (A bag of frozen peas also works well for this ). 3. MEDICATION -- Take the anti- inflammatory medication as directed with food. If you begin to experience nausea, burning of the stomach, or other symptoms,discontinue the anti- inflammatory medication and call the Clinic. It is not unusual for the medication to take 2-3 weeks to be effective. 4. ARCH SUPPORT -- If you have obtained Spenco Arch Supports,they may need to be adjusted. Please keep the instructions that come in the package and follow the directions for adjusting the arch height. If you have any questions , please feel free to call our office. Most often Spenco Orthotics are relatively comfortable and do not need to be adjusted. Successful treatment of heel spur pain includes effectively reducing the inflammation in the heel and correcting the mechanical cause of the heel pain. Good results depends on your faithful participation using the stretching, ice,medication, and arch supports.This treatment regimen has proven successful and has helped many people relieve heel spur pain. Zita Dutta APRN.TUBE BENDING MACHINE OPERATOR 11/24/2017 8:35 PM Signed Subjective HPI Pt presents with c/o right heel pain x 1 day. Hx of chronic intermittent heel pain. Would have mild heel pain that would last several days and resolve without intervention. Was playing basketball last night and felt a pop under heel. Heel is very painful to the touch, can hardly bear wt d/t pain. Heel is also swollen. Took one dose of ibuprofen. Has not applied ice or heat. Review of Systems Constitutional: Negative for chills and fever. Musculoskeletal: Negative for falls. Objective Physical Exam Constitutional: He is oriented to person, place, and time and well-developed, well-nourished, and in no distress. No distress. Musculoskeletal: Right foot: There is tenderness, bony tenderness and swelling. There is normal range of motion, normal capillary refill, no crepitus, no deformity and no laceration. Full active ROM against resistance. Tender on palpation. Mild edema noted. Cap refill 2 sec. Pedal pulses 2+. Mildly altered gait. Neurological: He is alert and oriented to person, place, and time. Skin: Skin is warm and dry. He is not diaphoretic. BP 142/84 Pulse 74 Temp 36.5 ?C (97.7 ?F) (Tympanic) Resp 16 Wt 100.6 kg (221 lb 12.8 oz) .Patient presents with: right heel pain: injured it last night playing basketball PAST MEDICAL HISTORY Diagnosis Date - Coronary atherosclerosis of unspecified type of vessel, northway or graft - Pure hypercholesterolemia - Unspecified essential hypertension PAST SURGICAL HISTORY Procedure Laterality Date - MANDIBLE FRACTURE CARE - PAST SURGICAL HISTORY OF CABG ALLERGIES Patient has no known allergies. MEDICATIONS diclofenac potassium (CATAFLAM) 50 mg tablet Take 1 tablet by mouth three times daily for 7 days. Take with food. Tadalafil (CIALIS) 10 mg tablet Take 1 tablet by mouth. TAKE 1-2 HOURS BEFORE SEXUAL INTERCOURSE NEEDED. triamcinolone acetonide 0.1 % cream Apply 1 application to affected area three times daily. Apply to affected area. aspirin(ADULT ASPIRIN EC LOW STRENGTH 81 MG TAB, DELAYED RELEASE) Take one(1) tablet daily. LISINOPRIL 10 MG TAB Take one(1) tablet daily. multivitamins(DAILY MULTIVITAMIN TAB) Take one(1) tablet daily. FAMILY HISTORY Problem Relation Age of Onset - None Mother - None Father Social History Substance Use Topics - Smoking status: Former Smoker - Smokeless tobacco: Current User Types: Snuff Comment: 2cans per week - Alcohol use Yes ASSESSMENT/PLAN: 1. Pain of right heel - ICD9: 729.5, ICD10: M79.671 (primary diagnosis) - XR CALCANEUS 2V AXIAL/LAT RT Small heel spur. - DICLOFENAC POTASSIUM 50 MG TABLET 2. Heel spur, right - ICD9: 726.73, ICD10: M77.31 Reviewed and printed heel spur education. May f/u with podiatry if sx persist or become worse. The patient is instructed to return or seek emergency treatment if symptoms become worse or with any acute change in condition. The patient verbalizes understanding and is in agreement with plan of care. Zita Dutta CNP Referring Provider: SELF [200] Allergies As of Date: 11/24/2017 (No Known Allergies) Date Reviewed: 11/24/2017 Reviewed by: Naida Gupta LPN - Fully Assessed Reason for Visit: right heel pain [Other] Cmt: injured it last night playing basketball Primary Visit Diagnosis:Pain of right heel [M79.671] Other Visit Diagnosis:Heel spur, right [M77.31] Order(s):XR CALCANEUS 2V AXIAL/LAT RT [[id number]] Order #: [id number] FUTURE diclofenac potassium (CATAFLAM) 50 mg tabletTake 1 tablet by mouth three times daily for 7 days. Take with food.Disp: 21 tabletRfl: 0 Prescriptions as of 11/24/2017 Sig: DICLOFENAC POTASSIUM 50 MG TA* Take 1 tablet by mouth three * TADALAFIL 10 MG TABLET Take 1 tablet by mouth. TAKE * Patient not taking: Reported on 11/24/2017 TRIAMCINOLONE ACETONIDE 0.1 %* Apply 1 application to affect* ADULT ASPIRIN EC LOW STRENGTH* Take one(1) tablet daily. LISINOPRIL 10 MG TABLET Take one(1) tablet daily. DAILY MULTIVITAMIN TABLET Take one(1) tablet daily. Problem List As Of Date: 11/24/2017 (None) Other instructions from your clinician: 1. STRETCHING -- Morning Stretches -- Before getting out of bed in the morning, perform the following stretches: Keeping the knee straight,use a band of material around the ball of the foot. Pull the toes up towards the knee and hold for 5 seconds. Repeat this procedure 5 or 6 times before stepping out of bed. Daily Calf Stretches -- Placing the forefoot ( above the heel ) against the wall or a step, lean forward until calf stretching is felt. Hold this position for 20 seconds and then relax. Repeat this procedure for 2-3 minutes in the morning, afternoon, and evening. 2. ICE -- Take a styrofoam cup with water and place it in the freezer. Take the cup out of the freezer and apply the ice directly on the heel. Massage the ice in the area of tenderness for 20 minutes every evening. (A bag of frozen peas also works well for this ). 3. MEDICATION -- Take the anti- inflammatory medication as directed with food. If you begin to experience nausea, burning of the stomach, or other symptoms,discontinue the anti- inflammatory medication and call the Clinic. It is not unusual for the medication to take 2- 3 weeks to be effective. 4. ARCH SUPPORT -- If you have obtained Spenco Arch Supports,they may need to be adjusted. Please keep the instructions that come in the package and follow the directions for adjusting the arch height. If you have any questions , please feel free to call our office. Most often Spenco Orthotics are relatively comfortable and do not need to be adjusted. Successful treatment of heel spur pain includes effectively reducing the inflammation in the heel and correcting the mechanical cause of the heel pain. Good results depends on your faithful participation using the stretching, ice,medication, and arch supports.This treatment regimen has proven successful and has helped many people relieve heel spur pain. Prescriptions ordered this encounter Disp Refills Start End DICLOFENAC POTASSIUM 50 MG TABLET 21 t* 0 11/24/2017 12/01/2017 Route: ORAL Sig: Take 1 tablet by mouth three times daily for 7 days. Take with food. Encounter Status:Closed by ZITA DUTTA CNP on 11/24/17 ALLERGIES ALLERGIES DATE TYPE / CODE NAME / CODE REACTION SEVERITY SOURCE 12/29/2017 Drug No Known Unknown [facility] Allergy/416 Allergies/L11144 Hospital [id number](SNOM 0388(RXNORM) Repository ED CT) Drug NO KNOWN [facility] Class/34889 ALLERGIES [facility] 1003(SNOMED Repository CT) ENCOUNTERS ENCOUNTERS ADMIT/DISCHARGE ACCOUNT ADMITTING ENCOUNTER LOCATION SOURCE NUMBER CLASS 02/03/2018 [id number] Ambulatory [facility] ing:LAB Repository 01/20/2018 [id number] Ambulatory BMSBuilding:B [facility] MS.CF[facility] Repository 01/20/2018 [id number] Ambulatory [facility] Hospital ing:[facility] Repository 01/14/2018 [id number] Ambulatory BMSBuilding:B [facility] MS.CF[facility] Repository 01/14/2018 [id number] Ambulatory [facility] ing:[facility] Repository 01/01/2018/01/06/20 [id number] Ambulatory [address] Repository 12/30/2017 [id number] Ambulatory [facility] Hospital ing:LAB Repository 12/29/2017/12/30/19 [id number] Ambulatory BMSBuilding:B [place] 18 MS.[facility] Repository 12/16/2017/12/22/19 [id number] Ambulatory [address] Repository 11/24/2017/11/25/19 [id number] Ambulatory [address] Repository 11/24/2017/11/26/19 [id number] Ambulatory [address] Repository PAYERS PAYERS ENCOUNTER GUARANTOR PAYER SUBSCRIBER SOURCE 02/03/2018 KAYLEE Garvin Primary KAYLEE Garvin [place] [id number] Insurance:MEDICAL DEANDOB: [facility] [id number] Number: Repository [id number]: 330 [id number] [phone] (HP) Date:1288-52-40BC [address] [address]MB: 02/03/2018 Secondary NOT GIVENUNK [place] Insurance:SELF PAY [facility] Number: Effective Repository Date:2018-02-03 01/20/2018 KAYLEE Garvin Primary KAYLEE [place] [id number] Insurance:MEDICAL DEANDOB: [facility] [id number] Number: Repository [id number]: 330 [id number] [phone] (HP) Date:1623-10-22SU [address] [address]MG: 01/20/2018 Secondary NOT GIVENUNK [place] Insurance:SELF PAY [facility] Number: Effective Repository Date:2018-01-20 01/20/2018 KAYLEE Garvin Primary KAYLEE Garvin [place] [id number] Insurance:MEDICAL DEANDOB: [facility] [id number] Number: Repository [id number]: 330 [id number] [phone] (HP) Date:1764-74-33TU [address] [address]OQ: 01/20/2018 Secondary NOT GIVENUNK Amee Insurance:SELF PAY [facility] Number: Effective Repository Date:2017-12-29 01/14/2018 KAYLEE Garvin Primary KAYLEE Garvin [place] [id number] Insurance:MEDICAL DEANDOB: [facility] [id number] Number: Repository [address]Cta: 330 [id number] [phone] (HP) Date:0663-39-95VH [address] [address]VC: 01/14/2018 Secondary NOT GIVENUNK [place] Insurance:SELF PAY [facility] Number: Effective Repository Date:2018-01-14 01/14/2018 KAYLEE Garvin Primary KAYLEE [place] [id number] Insurance:MEDICAL DEANDOB: [facility] [id number] Number: Repository [id number]: 330 [id number] [phone] (HP) Date:7689-39-33BE [address] [address]GM: 01/14/2018 Secondary NOT GIVENUNK [place] Insurance:SELF PAY [facility] Number: Effective Repository Date:2017-12-29 12/30/2017 KAYLEE Garvin Primary KAYLEE [place] [id number] Insurance:MEDICAL DEANDOB: [facility] [id number] Number: Repository [id number]: 330 [id number] [phone] (HP) Date:1530-16-36FR [address] [address]IH: 12/30/2017 Secondary NOT GIVENUNK Amee Insurance:SELF PAY [facility] Number: Effective Repository Date:2017-12-30 12/29/2017 KAYLEE Garvin Primary KAYLEE [place] [id number] Insurance:MEDICAL DEANDOB: [facility] [id number] Number: Repository [id number]: 330 [id number] [phone] (HP) Date:6151-29-55FZ [address] [address]RU: 12/29/2017 Secondary NOT GIVENUNK [place] Insurance:SELF PAY [facility] Number: Effective Repository Date:2017-12-29
== END ==
PROVIDERS: Family Provider Family Medicine; PCP Family Medicine; Referring Provider Internal Medicine Cardiovascular Disease; Visit Provider Internal Medicine Cardiovascular Disease
DX: I25.10 Atherosclerotic heart disease of native coronary artery without angina pectoris (principal); I25.2 Old myocardial infarction; Z86.74 Personal history of sudden cardiac arrest; Z95.1 Presence of aortocoronary bypass graft
CPT/HCPCS: 93017; 93350; Q9957; A4216; C8928

== ENCOUNTER → 2018-02-03 08:22 | Outpatient (CLI) | payer OTHER, SELFPAY ==
[2017-12-29 14:38] VITALS: BMI 31.8
[2018-02-03 09:51] LABS: AST(SGOT) 37 U/L (15-37); Alanine Aminotransfer ALT/SGPT 95 U/L (16-61); Albumin, Serum 3.8 g/dL (3.2-5.0); Alkaline Phosphatase 83 U/L (45-117); Bilirubin, Direct 0.13 mg/dL (0.00-0.30); Cholesterol 160 mg/dL (200); Globulin 3.2 g/dL (2.2-4.2); High Density Lipoprotein 37 mg/dL; Triglycerides 299 mg/dL; Very Low Density Lipoprotein 60 mg/dL (5-40)
== END ==
PROVIDERS: Family Provider Family Medicine; PCP Family Medicine; Referring Provider Internal Medicine Cardiovascular Disease; Visit Provider Internal Medicine Cardiovascular Disease
DX: E78.5 Hyperlipidemia, unspecified (principal)
CPT/HCPCS: 36415; 80061; 80076

== ENCOUNTER → 2020-05-28 09:16 | Outpatient (CLI) | payer OTHER, SELFPAY ==
[2020-05-28 08:36] VITALS: BMI 31.2
[2020-05-28 10:31] LABS: ALB/GLOB Ratio 1.1 RATIO (0.9-2.4); AST(SGOT) 104 U/L (15-37); Alanine Aminotransfer ALT/SGPT 280 U/L (16-61); Albumin, Serum 4.1 g/dL (3.2-5.0); Alkaline Phosphatase 78 U/L (45-117); Anion Gap 5 (5-15); BUN 13 mg/dL (7-18); BUN/Creat Ratio 10.9 RATIO (10-20); Calcium,Total 9.5 mg/dL (8.5-10.1); Chloride 100 mmol/L (98-107); Cholesterol 226 mg/dL (200); Creatinine, Serum 1.19 mg/dL (0.70-1.30); EST Glomerular Filtration Rate 70 mL/min (>60); Est Glom Filt Rate - Afr Amer 85 mL/min (>60); Globulin 3.9 g/dL (2.2-4.2); Glucose 110 mg/dL (74-106); High Density Lipoprotein 47 mg/dL; Potassium 4.3 mmol/L (3.5-5.1); Sodium Level 135 mmol/L (136-145); Triglycerides 186 mg/dL; Very Low Density Lipoprotein 37 mg/dL (5-40)
== END ==
PROVIDERS: PCP Family Medicine; Referring Provider Physician Assistant Medical; Visit Provider Physician Assistant Medical
DX: E78.5 Hyperlipidemia, unspecified (principal); I10 Essential (primary) hypertension; I25.10 Atherosclerotic heart disease of native coronary artery without angina pectoris
CPT/HCPCS: 36415; 80053; 80061

== ENCOUNTER → 2020-06-18 09:31 | Outpatient (CLI) | payer OTHER, SELFPAY ==
[2020-06-18 09:03] VITALS: BMI 31.2
[2020-06-18 11:23] LABS: AST(SGOT) 107 U/L (15-37); Alanine Aminotransfer ALT/SGPT 267 U/L (16-61); Albumin, Serum 4.1 g/dL (3.2-5.0); Alkaline Phosphatase 62 U/L (45-117); Bilirubin, Direct 0.24 mg/dL (0.00-0.30); Protein, Total 8.1 g/dL (6.4-8.2)
== END ==
PROVIDERS: PCP Family Medicine; Referring Provider Physician Assistant Medical; Visit Provider Physician Assistant Medical
DX: R74.8 Abnormal levels of other serum enzymes (principal)
CPT/HCPCS: 36415; 80076

== ENCOUNTER → 2020-06-22 10:53 | Outpatient (CLI) | payer OTHER, SELFPAY ==
[2020-05-28 08:36] VITALS: BMI 31.2
[2020-06-18 09:03] VITALS: BMI 31.2
--- NOTE | 2020-06-22 10:57 | ECHOCS_ITS ---
Reason For Study: HTN Procedure This was a 2D Doppler, Color Flow transthoracic echocardiogram. The study was technically difficult. Contrast injection was performed. Exam performed in department. Left Ventricle Based upon the 2D echocardiographic and contrast enhanced images obtained there appears to be grossly normal left ventricular size, wall motion, and systolic function. The estimated ejection fraction is 55 %. Transmitral doppler flow suggestive of impaired relaxation of left ventricle. Right Ventricle Normal size and thickness. Normal systolic function. Atria Normal left atrium. Normal right atrium. No doppler evidence for ASD. Mitral Valve There is no mitral annular calcification. Normal mitral valve. Trivial mitral valve insufficiency. Tricuspid Valve Normal tricuspid valve. Trivial tricuspid valve insufficiency. Unable to estimate RV systolic pressure/pulmonary artery pressure due to technically difficult study. Aortic Valve Trisinus/trileaflet aortic valve. Normal aortic valve. Pulmonic Valve The pulmonic valve is not well visualized. Trivial pulmonic valve insufficiency. Great Vessels Normal sized aortic root. Pericardium/Pleural No pericardial effusion. Medication 22 gauge I.V. with prn adaptor inserted into right arm. Diluted definity 4ml given slow IV push to enhance endocardial definition. MMode/2D Measurements & Calculations LVIDd: 5.2 cm IVSd: 1.2 cm Ao root diam: 3.3 cm LVIDs: 3.5 cm LVPWd: 1.1 cm RVDd: 3.0 cm FS: 32.1 % LAV(MOD-bp): 40.5 ml LVAd ap4: 29.2 cm2 LVAd ap2: 29.0 cm2 LAV(MOD-bp) Indexed: 17.3 ml/m2 LVLd ap4: 7.6 cm LVLd ap2: 7.9 cm LAV(MOD-sp2): 41.3 ml EDV(MOD-sp4): 93.4 ml EDV(MOD-sp2): 89.1 ml LAV(MOD-sp4): 38.5 ml EDV(sp4-el): 94.7 ml EDV(sp2-el): 90.4 ml LVAs ap4: 17.4 cm2 LVAs ap2: 16.7 cm2 LVLs ap4: 6.7 cm LVLs ap2: 6.4 cm ESV(MOD-sp4): 39.0 ml ESV(MOD-sp2): 36.9 ml ESV(sp4-el): 38.3 ml ESV(sp2-el): 36.9 ml EF(MOD-sp4): 58.2 % EF(MOD-sp2): 58.6 % EF(sp4-el): 59.5 % SV(MOD-sp4): 54.3 ml SV(MOD-sp2): 52.2 ml SV(sp4-el): 56.4 ml LA A4 area: 15.7 cm2 LA dimension(2D): 4.1 cm RA A4 area: 15.3 cm2 Time Measurements MV dec time: 0.28 sec Doppler Measurements & Calculations MV E max angel: 64.4 cm/sec Lat Peak E' Angel: 10.8 cm/sec Med Peak E' Angel: 7.2 cm/sec MV A max angel: 71.9 cm/sec E/E' lat: 5.9 E/E' med: 9.0 MV E/A: 0.90 Ao V2 max: 116.3 cm/sec LV V1 max: 77.3 cm/sec PA V2 max: 102.5 cm/sec Ao max P.4 mmHg LV V1 max P.4 mmHg ECHO/Echo Complete W/ Contrast Interpretation Summary The study was technically difficult. Contrast injection was performed. Based upon the 2D echocardiographic and contrast enhanced images obtained there appears to be grossly normal left ventricular size, wall motion, and systolic function. The estimated ejection fraction is 55 %. Trivial mitral valve insufficiency. Trivial tricuspid valve insufficiency. Trivial pulmonic valve insufficiency. Unable to estimate RV systolic pressure/pulmonary artery pressure due to techni chanda difficult study. Transmitral doppler flow suggestive of impaired relaxation of left ventricle Ordering Physician: Tawny Purvis/Juan Cannon Referring Physician: MADHU GARCIA Performed By: Liza Heck, IVELISSE, RVT
== END ==
LOC: CVS 10:56
PROVIDERS: PCP Family Medicine; Referring Provider Physician Assistant Medical; Visit Provider Physician Assistant Medical
DX: I10 Essential (primary) hypertension (principal)
CPT/HCPCS: 93306; Q9957; A4216; C8929

== ENCOUNTER → 2020-09-03 15:44 | Outpatient (CLI) | payer OTHER, SELFPAY ==
[2020-06-18 09:03] VITALS: BMI 31.2
[2020-09-03 18:30] LABS: AST(SGOT) 191 U/L (15-37); Alanine Aminotransfer ALT/SGPT 351 U/L (16-61); Alkaline Phosphatase 57 U/L (45-117); Anion Gap 5 (5-15); BUN 17 mg/dL (7-18); BUN/Creat Ratio 14.5 RATIO (10-20); Calcium,Total 9.2 mg/dL (8.5-10.1); Chloride 106 mmol/L (98-107); Creatinine, Serum 1.17 mg/dL (0.70-1.30); EST Glomerular Filtration Rate 71 mL/min (>60); Est Glom Filt Rate - Afr Amer 86 mL/min (>60); Ferritin 6177 ng/mL (26-388); Globulin 3.9 g/dL (2.2-4.2); Glucose 99 mg/dL (74-106); Potassium 4.3 mmol/L (3.5-5.1); Protein, Total 7.9 g/dL (6.4-8.2); Sodium Level 138 mmol/L (136-145)
[2020-09-04 09:32] LABS: Hepatitis B Surface Antigen Non-Reactive (Nonreactive); Hepatitis C Antibody Non-Reactive (Nonreactive)
[2020-09-05 14:42] LABS: ANTINUCLEAR ANTIBODIES DIRECT Negative (Negative)
[2020-09-05 16:19] LABS: Anti-Smooth Muscle ABS 12 Units (0-19); Ceruloplasmin 19.6 mg/dL (16.0-31.0)
== END ==
PROVIDERS: PCP Family Medicine; Referring Provider Internal Medicine Gastroenterology; Visit Provider Internal Medicine Gastroenterology
DX: K75.9 Inflammatory liver disease, unspecified (principal)
CPT/HCPCS: 36415; 80053; 82390; 82728; 83516; 86038; 86803; 87340

== ENCOUNTER → 2020-09-10 14:06 | Outpatient (CLI) | payer OTHER, SELFPAY ==
[2020-06-18 09:03] VITALS: BMI 31.2
== END ==
PROVIDERS: PCP Family Medicine; Referring Provider Internal Medicine Gastroenterology; Visit Provider Internal Medicine Gastroenterology
DX: K75.9 Inflammatory liver disease, unspecified (principal)
CPT/HCPCS: 36415

== ENCOUNTER → 2020-09-11 08:15 | Outpatient (CLI) | payer OTHER, SELFPAY ==
[2020-06-18 09:03] VITALS: BMI 31.2
--- NOTE | 2020-09-11 08:17 | US_ITS ---
EXAM DESCRIPTION: CLINICAL HISTORY: 44 years Male, UNSPEC HEPATITIS COMPARISON: None TECHNIQUE: Serial longitudinal and transverse scans of the right upper quadrant were obtained utilizing a real-time sector scanner. FINDINGS: The gallbladder is normal in size and shape. No echogenic structures are noted within the gallbladder which are casting acoustic shadows. A small 5 mm polyp is noted adjacent to the gallbladder wall. The common bile duct measures 3.3 mm., which is normal. The liver is normal, and measures 18.9 cm in length.. The hepatic veins are patent and hepatopetal flow is noted in the main portal vein. The head, body and tail of the pancreas were examined and appear to be normal. The right kidney is normal and measures 10.4 cm. x 5.0 cm. x 4.6 cm. in size with a cortex measuring 1.4 cm in thickness. The right renal parenchyma has a normal echogenic relationship to the adjacent liver. No fluid is noted in Zuniga''s pouch. US/Liver IMPRESSION: A small cholesterol polyp is noted in the gallbladder wall, in this otherwise normal gallbladder and limited right upper quadrant ultrasound. Electronically Signed: Cesar Burgos DO at 12:37 EDT Tel , Service support ,
== END ==
PROVIDERS: PCP Family Medicine; Referring Provider Internal Medicine Gastroenterology; Visit Provider Internal Medicine Gastroenterology
DX: K75.9 Inflammatory liver disease, unspecified (principal)
CPT/HCPCS: 76705

== ENCOUNTER → 2020-11-08 12:21 | Outpatient (CLI) | payer OTHER, SELFPAY ==
[2020-11-08 12:45] LABS: CREATININE FINGERSTICK 1.2 mg/dL (0.70-1.30); EGFR FINGERSTICK > 60.0000 mL/min (>60)
== END ==
PROVIDERS: PCP Family Medicine; Visit Provider Internal Medicine Medical Oncology
DX: E83.110 Hereditary hemochromatosis (principal); R74.8 Abnormal levels of other serum enzymes

== ENCOUNTER 2024-02-19 12:03 | Emergency (ER) | payer OTHER, SELFPAY ==
[2024-02-19 12:04] VITALS: BP 182/112; PULSE 102; RESP 15; TEMP 36.3; O2SAT 96; BMI 33.0
--- NOTE | 2024-02-19 12:15 | EDS_ITS ---
HPI HPI - GI History of Present Illness Chief Complaint: GI Bleed Narrative Narrative: 48-year-old male past medical history of of [place] when he was 29, also states that he will have periods of binge drinking of alcohol, presents with black stool, and vomiting of black substance as well. Symptoms started yesterday when he started noticing that he was having black, tarry stool. It has not become loose. This morning when he awoke he felt sick to his stomach and nauseated and he states he vomited twice. It was very dark and black as well. He denies taking blood thinners. He does not take NSAIDs either. No chest pain or shortness of breath, no lightheadedness or near syncope. No exacerbating or alleviating factors. States he lifted up on the Internet and there is concern for internal bleeding. 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 History of sudden cardiac arrest successfully resuscitated (08/05/06) Home Medications ?Medication ?Instructions ?Recorded ?Last Taken ?Type aspirin 81 mg tablet,delayed 81 mg PO DAILY #90 tabs 05/28/20 Unknown Rx release (Adult Aspirin Regimen) lisinopril 20 mg tablet 20 mg PO DAILY #90 tabs 06/18/20 Unknown Rx amlodipine 5 mg tablet 5 mg PO DAILY #30 tabs 06/25/20 Unknown Rx amlodipine 5 mg tablet 5 mg PO DAILY #21 tabs 02/19/24 Unknown Rx Allergy/AdvReac Type Severity Reaction Status Date / Time No Known Allergies Allergy Verified 02/19/24 12:04 Family History Father Negative for ASCVD Mother Negative for ASCVD Grandfather CVA (cerebral vascular accident) Surgical History History of mandibular surgery History of left heart catheterization (08/06/06) 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 HEENT: No sore throat. No neck pain. No loss of vision. No rhinorrhea. Cardiovascular: No chest pain. No palpitations. No pedal edema. Respiratory: No cough, no shortness of breath. Abdominal: No abdominal pain. Positive nausea. 2 episodes of vomiting, black substance. Positive black stool since yesterday. Genitourinary: No dysuria. No hematuria. Musculoskeletal: No myalgias. No arthralgias. Neurologic: No headaches. No dizziness. No lightheadedness. Skin: No rash. No change in color. EXAM Physical Exam Narrative Exam Narrative: Afebrile. Vital signs noted. Nontoxic-appearing. Resting comfortably on the cot. Cardiovascular examination reveals a regular rate and rhythm with intermittent tachycardia. Lungs are clear to auscultation bilaterally. Abdomen is soft and nontender with positive bowel sounds. No guarding or rebound. Neurological examination is nonfocal and nonlateralizing. There is no central cyanosis. He does not appear overtly pallored. Const Vital Signs: 02/19/24 12:04 Temperature 97.3 F L Temperature Source Temporal Pulse Rate 102 H Respiratory Rate 15 Blood Pressure 182/112 H Blood Pressure Mean 135 Pulse Ox 96 Oxygen Delivery Method Room Air MDM MDM MDM Narrative Medical decision making narrative: Differential diagnosis includes but not limited to alcoholic gastritis with bleeding versus ulcer bleeding versus esophageal varices. Initially, I did discuss NG tube placement with him to check gastric contents, but we will forego that until laboratory work returns including CBC, CMP, and lipase. Chaperoned rectal examination will be performed to obtain sample for fecal occult blood. I reviewed his laboratory work and he has neutropenia 4.3 with hemoglobin normal at 14.4, platelet count low at 89. Sodium is slightly low at 133 with potassium normal 3.8, chloride 102. Glucose is elevated at 144 with a normal anion gap of 6. He has elevated LFTs with an AST of 176 and an ALT of 185, and total bilirubin 4.3. He is not having any abdominal pain. I do not feel he requires any imaging. When compared to prior labs, he has had chronically elevated LFTs and bilirubin. Lipase is normal at 54 so I doubt pancreatitis. On chaperoned examination/rectal examination he did have black stool. This was sent for fecal occult blood, and is negative. As I am unsure as to the cause of his black stool and reported vomiting black substance, he does not recall taking any Pepto-Bismol/bismuth sulfate. His laboratory work including his BUN and hemoglobin go against upper GI bleeding. I did discuss with him the possibility of detox for alcohol but he declined. His blood pressure was noted to be elevated and he states he is out of his amlodipine and requested a refill. I wrote him a prescription for his amlodipine 5 mg daily for 3 weeks but I strongly encouraged him to follow-up with his slide fastener repairer. I also discussed with him and G-tube placement to check for upper GI bleeding but he declined. As he is asymptomatic with his hypertension, he was given amlodipine here and prescription written as stated previously. He is motivated for discharge. I encouraged follow-up with gastroenterology, as well as hematology/oncology because of his low platelets. I do not feel he needs emergent transfusion. Return instructions to the emergency department were reviewed. Disposition is discharged home in stable condition. History & Record Review Discussion w/independent historian: Patient Additional record(s) reviewed:: Prior labs Lab Data Attestation: I reviewed the patient's lab results. Labs: Laboratory Results - last 24 hr 02/19/24 12:22 WBC 4.3 L RBC 4.29 L Hgb 14.4 Hct 40.6 MCV 94.6 H MCH 33.6 H MCHC 35.5 RDW Std Deviation 44.7 H RDW Coeff of Thang 12.9 Plt Count 89 L MPV 10.9 Immature Gran % (Auto) 0.000 Neut % (Auto) 76.9 H Lymph % (Auto) 10.4 L Gilliam % (Auto) 9.0 Eos % (Auto) 3.2 Baso % (Auto) 0.5 Absolute Neuts (auto) 3.3 Absolute Lymphs (auto) 0.45 L Nucleated RBC % 0 Sodium 133 L Potassium 3.8 Chloride 102 Carbon Dioxide 25.0 Anion Gap 6 BUN 14 Creatinine 0.94 Estim Creat Clear Calc 118.56 Est GFR (MDRD) Af Amer 110 Est GFR (MDRD) Non-Af 91 BUN/Creatinine Ratio 15.0 Glucose 144 H Calcium 9.4 Total Bilirubin 4.30 H AST 176 H ALT 185 H Alkaline Phosphatase 100 Total Protein 7.8 Albumin 3.6 Globulin 4.2 Albumin/Globulin Ratio 0.9 Lipase 54 Discharge Plan Triage Chief Complaint: GI Bleed ED Provider: Eder Townsend Dx/Rx/DC Orders Clinical Impression: Black tarry stools, Nausea and vomiting, Asymptomatic hypertension, Thrombocytopenia, Neutropenia Instructions: GI Bleeding Causes and Tests, Thrombocytopenia, ED High Blood Pressure Hypertension, ED Vomiting (Adult) Prescriptions: New amlodipine 5 mg tablet 5 mg PO DAILY Qty: 21 0RF No Action aspirin [Adult Aspirin Regimen] 81 mg tablet,delayed release (DR/EC) 81 mg PO DAILY Qty: 90 3RF lisinopril 20 mg tablet 20 mg PO DAILY Qty: 90 3RF amlodipine 5 mg tablet 5 mg PO DAILY Qty: 30 11RF Primary Care Provider: Care Physician,No Primary Referrals: Juan Mao MD [Med Staff - Active Staff] - 3-5 Days Todd Vail DO [Med Staff - Active Staff] - As soon as possible Care Physician,No Primary [Primary Care Provider] - Niyah Nevarez NP, [facility] [Med Staff - Adv Practice Prof] - As soon as possible Activity Restrictions/Additional Instructions: Follow-up with your slide fastener repairer for further refills of your antihypertensives. Return to the emergency department with bright red blood in your emesis/vomiting or in your stool, chest pain, shortness of breath, or any new or worsening symptoms.. You should also follow-up with a supervisor force adjustment/oncologist regarding your low platelets. You need to follow-up for your black stools. You have been referred to gastroenterology. Print Language: Slovak Disposition Disposition: Home, Self Care
[2024-02-19 12:40] LABS: Absolute Lymphocyte Count 0.45 X10^3/uL (0.83-4.51); Absolute Neutrophil Count 3.3 X10^3/uL (2.0-7.7); Basophil# 0.02 X10^3/uL; Basophil% 0.5 % (0-1); Eosinophil# 0.14 X10^3/uL; Eosinophils% 3.2 % (0-5); Hematocrit 40.6 % (40-54); Hemoglobin 14.4 g/dL (13.0-16.5); Lymphocyte # 0.45 X10^3/ul (0.83-4.51); Lymphocyte % 10.4 % (19-41); Mean Corp Hgb Conc 35.5 g/dL (32-36); Mean Corpuscular Hgb 33.6 pg (27.0-32.0); Mean Corpuscular Volume 94.6 fL (80-94); Mean Platelet Vol. 10.9 fl (6.2-12.0); Monocyte# 0.39 X10^3/uL; NRBC Flagged by Analyzer 0 % (0-5); Neutrophil # 3.33 X10^3/uL (2.7-7.7); Neutrophil % 76.9 % (47-70); POSITIVE COUNT YES; POSITIVE DIFFERENTIAL YES; Platelet Count 89 K/mm3 (150-450); RBC Distribution Width CV 12.9 % (11.6-14.6); RBC Distribution Width SD 44.7 fl (35.1-43.9); Red Blood Count 4.29 M/mm3 (4.6-6.2); White Blood Count 4.3 K/mm3 (4.4-11.0)
[2024-02-19 12:42] LABS: Differential Indicated SCAN CRITERIA MET
[2024-02-19 12:53] LABS: ALB/GLOB Ratio 0.9 RATIO (0.9-2.4); AST(SGOT) 176 U/L (15-37); Alanine Aminotransfer ALT/SGPT 185 U/L (16-61); Albumin, Serum 3.6 g/dL (3.2-5.0); Alkaline Phosphatase 100 U/L (45-117); Anion Gap 6 (5-15); BUN 14 mg/dL (7-18); Calcium,Total 9.4 mg/dL (8.5-10.1); Chloride 102 mmol/L (98-107); Creatinine, Serum 0.94 mg/dL (0.70-1.30); EST Glomerular Filtration Rate 91 mL/min (>60); Est Glom Filt Rate - Afr Amer 110 mL/min (>60); Estimated Creatinine Clearance 118.56 ml/min; Globulin 4.2 g/dL (2.2-4.2); Glucose 144 mg/dL (74-106); Lipase 54 U/L (13-75); Potassium 3.8 mmol/L (3.5-5.1); Protein, Total 7.8 g/dL (6.4-8.2); Sodium Level 133 mmol/L (136-145)
[2024-02-19 13:47] VITALS: BP 161/100; PULSE 91; RESP 16; TEMP 36.6; O2SAT 99
[2024-02-19] MEDS: amLODIPine 5 MG Tablet PO (13:57)
== END 2024-02-19 14:00 | disposition home or self-care (01) ==
PROVIDERS: Emergency Provider Emergency Medicine; Visit Provider Emergency Medicine
DX: R11.2 Nausea with vomiting, unspecified (principal); D69.6 Thrombocytopenia, unspecified; E78.5 Hyperlipidemia, unspecified; I10 Essential (primary) hypertension; D70.9 Neutropenia, unspecified; I25.10 Atherosclerotic heart disease of native coronary artery without angina pectoris; Z87.891 Personal history of nicotine dependence; K92.2 Gastrointestinal hemorrhage, unspecified; I25.2 Old myocardial infarction; Z79.899 Other long term (current) drug therapy
CPT/HCPCS: 80053; 82274; 83690; 85025; 99283; A4216

== ENCOUNTER 2024-08-26 09:03 | Observation (INO) | payer OTHER, SELFPAY ==
[2024-08-26] VITALS (32 sets, daily range): BP systolic 92–157; BP diastolic 43–102; PULSE 57–106; RESP 12–20; TEMP 36.6–37.7; O2SAT 92–100; BMI 29.0; BMI 28.9
--- NOTE | 2024-08-26 09:20 | EDS_ITS ---
HPI History of Present Illness Chief Complaint: Nausea/Vomiting Informant: patient Narrative Narrative: 48-year-old male presents with nausea and vomiting for the past 3 to 4 days that has mostly been either hematemesis bright red blood or dark red blood as well as dark red or black stools. Some mild bilateral flank pain off and on feels more like muscle pain, no other central abdominal pains. Has been feeling lightheaded, tired and weak, no syncope. Some dyspnea with exertion or after vomiting but no chest pain. He has a history of a CABG, but has been noncompliant with his medications for several years taking nothing including aspirin. Used to be a heavy alcohol drinker but stopped years ago, but he had some alcohol on 12 August 2 weeks ago, and then had a couple days without alcohol and then had a golf trip and has been drinking heavily since, about 12 beers and 5 or 6 shots of hard liquor per day. 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 History of sudden cardiac arrest successfully resuscitated (08/05/06) Home Medications ?Medication ?Instructions ?Recorded ?Last Taken ?Type aspirin 81 mg tablet,delayed 81 mg PO DAILY #90 tabs 0 05/28/20 Unknown Rx release (Adult Aspirin Regimen) lisinopril 20 mg tablet 20 mg PO DAILY #90 tabs 06/09 Unknown Rx amlodipine 5 mg tablet 5 mg PO DAILY #30 tabs 06/25 Unknown Rx amlodipine 5 mg tablet 5 mg PO DAILY #21 tabs 02/18 Unknown Rx Allergy/AdvReac Type Severity Reaction Status Date / Time No Known Allergies Allergy Verified 08/26/24 09:03 Family History Father Negative for ASCVD Mother Negative for ASCVD Grandfather CVA (cerebral vascular accident) Surgical History History of mandibular surgery History of left heart catheterization (08/06/06) S/P CABG x 2 (08/09/06) Social History Smoking Status: Former smoker pack-years: 12 Electronic Cigarette Use: with nicotine alcohol intake: current alcohol intake frequency: a few times a week substance use type: does not use caffeine: Yes Type: coffee Number of servings: 1 ROS ROS ED Constitutional Constitutional ED: Reports fatigue; Denies chills or fever(s) Eyes Eyes: Denies change in vision or diplopia ENT ENT ED: Denies rhinorrhea or sore throat Cardiovascular Cardiovascular: Reports dyspnea on exertion and lightheadedness; Denies chest pain, leg edema, palpitations or syncope Respiratory/Chest Respiratory/Chest: Reports dyspnea on exertion; Denies cough Gastrointestinal Gastrointestinal: Reports abdominal pain, hematemesis, melena, nausea and vomiting; Denies diarrhea Genitourinary Genitourinary ED: Denies dysuria or hematuria Musculoskeletal Musculoskeletal: Denies back pain or neck pain Integumentary Denies abscess or rash Neurologic Neurologic: Denies headache(s), paresthesias or weakness Psychiatric Psychiatric: Denies anxiety or suicidal thoughts EXAM Physical Exam Const Vital Signs: 08/26/24 09:03 08/26/24 09:03 08/26/24 10:03 Temperature 98 F Temperature Source Temporal Pulse Rate 106 H 106 H Pulse Rate [Lying] 100 Pulse Rate [Sitting (for 1 minute prior to obtaining)] 82 Pulse Rate [Standing (for 1 minute prior to obtaining)] 57 L Respiratory Rate 18 18 Blood Pressure 92/76 92/76 Blood Pressure [Lying] 127/68 H Blood Pressure [Sitting (for 1 minute prior to obtaining)] 120/66 Blood Pressure [Standing (for 1 minute prior to obtaining)] 92/43 L Blood Pressure Mean 81 81 Blood Pressure Mean [Lying] 87 Blood Pressure Mean [Sitting (for 1 minute prior to obtaining)] 84 Blood Pressure Mean [Standing (for 1 minute prior to obtaining)] 59 Pulse Ox 100 100 Oxygen Delivery Method Room Air Room Air Positive well nourished and well developed General Appearance ED: well developed and NAD HEENT Reports moist mucous membranes normocephalic and atraumatic Eyes PERRL and EOMs intact bilaterally Neck full ROM and supple Resp normal respiratory effort and clear to auscultation bilaterally Cardio regular rate, regular rhythm and no murmurs Rate: other Other Details: Mild resting tachycardia GI non-tender and non-distended GI Narrative: Refused rectal, denies pain, states he will provide stool specimen Auscultation: normoactive bowel sounds Palpation: soft Back/Spine no CVA tenderness General Back: other FROM Extremity normal to inspection General Extremety ED: Negative for edema, pulses abnormal or tenderness General Extremity: Negative for edema or pulses abnormal Neuro oriented x3, CN's II-XII intact bilaterally and no sensory deficits noted Sensorium / Orientation: awake and alert Motor Exam: strength 5/5 throughout Skin no rashes or lesions noted and no wounds MDM MDM MDM Narrative Medical decision making narrative: Patient is orthostatic. He was given IV fluids, pantoprazole, Zofran, and later fentanyl when he asked for something for pain. His hemoglobin is 6.8. I consented him for blood, we discussed pros and cons and he consents, as it is indicated and recommended. He is typed and crossed for 2 units. Will need admitted for EGD and further treatment; IV pantoprazole started. Discussed with GI and hospitalist will be admitting him to the ICU. His abdomen is very benign, nontender, so I do not think we need an x-ray or CT to verify that he is not perforated. Lab Data Attestation: I reviewed the patient's lab results. Labs: Laboratory Results - last 24 hr 08/26/24 09:30 WBC 15.5 H RBC 2.04 L Hgb 6.8 L Hct 18.6 L MCV 91.2 MCH 33.3 H MCHC 36.6 H RDW Std Deviation 47.4 H RDW Coeff of Thang 15.5 H Plt Count 258 MPV 11.2 Immature Gran % (Auto) 1.700 H Neut % (Auto) 68.9 Lymph % (Auto) 15.8 L [place] % (Auto) 10.9 H Eos % (Auto) 2.3 Baso % (Auto) 0.4 Absolute Neuts (auto) 10.7 H Absolute Lymphs (auto) 2.45 Nucleated RBC % 3.0 Differential Comment COMMENT PT 18.1 H INR 1.5 Sodium 121 L Potassium 3.1 L Chloride 82 L Carbon Dioxide 28.0 Anion Gap 11 BUN 40 H Creatinine 1.26 H Estim Creat Clear Calc 83.28 Est GFR (MDRD) Non-Af 70 BUN/Creatinine Ratio 31.5 H Glucose 165 H Calcium 9.2 Total Bilirubin 1.99 H AST 184 H ALT 158 H Alkaline Phosphatase 107 Total Protein 5.7 L Albumin 3.1 L Globulin 2.6 Albumin/Globulin Ratio 1.2 Lipase 138 H Blood Type A POSITIVE Antibody Screen NEGATIVE Crossmatch See Detail Rhythm Strip Rhythm Strip: Sinus Rhythm Rate: 97 Ectopy: None EKG Initial EKG: Attestation: I personally reviewed and interpreted this EKG as follows: Interpretation: Sinus Rhythm and No Acute Injury Pattern Comments: Nml axis & intervals; nml EKG Management Discussion w/another healthcare provider: Hospitalist and School Child Care Attendant (GI Friend) Critical Care Time Critical Care Time: Yes Critical care time (excluding procedures): 30-74 minutes (37 min), Including time spent:, Discussing w/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
[2024-08-26 09:42] LABS: Hematocrit 18.6 % (40-54); Hemoglobin 6.8 g/dL (13.0-16.5); Immature Granulocytes Count 0.270 X10^3/uL (0.0-0.0); Mean Corp Hgb Conc 36.6 g/dL (32-36); Mean Corpuscular Volume 91.2 fL (80-94); Mean Platelet Vol. 11.2 fl (6.2-12.0); NRBC Flagged by Analyzer 3.0 % (0-5); POSITIVE DIFFERENTIAL YES; Platelet Count 258 K/mm3 (150-450); RBC Distribution Width CV 15.5 % (11.6-14.6); RBC Distribution Width SD 47.4 fl (35.1-43.9); Red Blood Count 2.04 M/mm3 (4.6-6.2); White Blood Count 15.5 K/mm3 (4.4-11.0)
[2024-08-26 09:43] LABS: Differential Indicated SCAN CRITERIA MET
[2024-08-26 09:52] LABS: Prothrombin Time (Protime)PT. 18.1 SECONDS (11.7-14.9)
[2024-08-26 10:28] LABS: AST(SGOT) 184 U/L (<=37); Alanine Aminotransfer ALT/SGPT 158 U/L (<=46); Albumin, Serum 3.1 g/dL (3.5-5.0); Alkaline Phosphatase 107 U/L (40-129); Anion Gap 11 (5-15); BUN 40 mg/dL (4-19); BUN/Creat Ratio 31.5 RATIO (10-20); Calcium,Total 9.2 mg/dL (7.6-11.0); Carbon Dioxide 28.0 mmol/L (21.0-32.0); Chloride 82 mmol/L (98-108); Estimated Creatinine Clearance 83.28 ml/min (50-250); Globulin 2.6 g/dL (2.2-4.2); Glucose 165 mg/dL (70-99); Lipase 138 U/L (13-75); Potassium 3.1 mmol/L (3.3-5.1)
[2024-08-26] MEDS: Pantoprazole Sodium 40 MG in 0.9% Normal Saline (100mL MB+) 100 ML 300 MG IV ×2 (10:37→19:43)
[2024-08-26] MEDS: fentaNYL 100 MCG/2 ML Ampul 50 MCG IV (10:40)
--- NOTE | 2024-08-26 11:06 | HP.PCM.HOS_ITS ---
HPI - General General Date of Admission: 08/26/24 Date of Service: 08/26/24 Chief Complaint: Vomiting blood/melena for 5 days HPI Narrative KAYLEE VALDIVIA, is a 48 M with history of chronic alcoholism came to ED with hematemesis and melena for 5 days. Patient stated he started vomiting blood on Thursday morning, reddish to brownish color, projectile [place] 4-5 times per day. Next day started also having black stool 4 to 5-day. He feels crampy abdomen which last for short time in the left upper quadrant. No fever or chills. Denies previous EGD or colonoscopy. Patient drinks alcohol, beer mixed with hard liquor whiskey/from in a binge pattern matter. Restarted drinking as a teenager relapse and in remission, about more than a dozen beer and hard liquor every day. He quit for 2 months and then relapsed to 3 months ago. 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 He also smokes mainly vaping. Denies other substance use In ED, he was hypotensive, BP 92/76 x 2. His baseline blood pressure is on higher side 148/82 TO 161/100. Therefore more than 40 mm's BP drop from baseline. Orthostatic positive in ED. H&H was found 6.8/18.6%. Baseline 14.4/40% 200 stabs uncrossed match. IV fluid normal saline bolus ordered. 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 History of sudden cardiac arrest successfully resuscitated (08/05/06) Home Medications ?Medication ?Instructions ?Recorded ?Last Taken ?Type aspirin 81 mg tablet,delayed 81 mg PO DAILY #90 tabs 0 05/28/20 Unknown Rx release (Adult Aspirin Regimen) lisinopril 20 mg tablet 20 mg PO DAILY #90 tabs 06/09 Unknown Rx amlodipine 5 mg tablet 5 mg PO DAILY #30 tabs 06/25 Unknown Rx amlodipine 5 mg tablet 5 mg PO DAILY #21 tabs 02/18 Unknown Rx Allergy/AdvReac Type Severity Reaction Status Date / Time No Known Allergies Allergy Verified 08/26/24 09:03 Family History Father Negative for ASCVD Mother Negative for ASCVD Grandfather CVA (cerebral vascular accident) Surgical History History of mandibular surgery History of left heart catheterization (08/06/06) S/P CABG x 2 (08/09/06) Social History Smoking Status: Current every day smoker tobacco type: cigars per week: 5 Electronic Cigarette Use: with nicotine alcohol intake: current alcohol intake frequency: a few times a week substance use type: does not use caffeine: Yes Type: coffee Number of servings: 1 ROS ROS Narrative Constitutional: Reports acute onset fatigue and weakness. No fever. HEENT: Reports systems reviewed and no addt'l complaints, except as documented Respiratory/Chest: Vaping. No acute shortness of breath or respiratory distress or wheezing. CVS: History of CABG. History of cardiac arrest when he was young. Currently no chest pain pressure or tightness Gastrointestinal: As described in HPI Genitourinary: Denies burning urination or new urinary tract symptoms Musculoskeletal: Denies acute joint pain or limited range of motion. No acute injury Neurologic: Denies seizure-like symptoms. Psychiatric: Alcohol dependence skin: No ulcer. No rash Endocrinology: Reports systems reviewed and no addt'l complaints, except as documented Hematologic/Lymphatic: Reports systems reviewed and no addt'l complaints, except as documented Rest 14 ROS are negative except as mentioned in HPI Vital Signs Vital Signs Vital Signs: 08/26/24 09:03 08/26/24 09:03 08/26/24 10:03 Temperature 98 F Temperature Source Temporal Pulse Rate 106 H 106 H Pulse Rate [Lying] 100 Pulse Rate [Sitting (for 1 minute prior to obtaining)] 82 Pulse Rate [Standing (for 1 minute prior to obtaining)] 57 L Respiratory Rate 18 18 Blood Pressure 92/76 92/76 Blood Pressure [Lying] 127/68 H Blood Pressure [Sitting (for 1 minute prior to obtaining)] 120/66 Blood Pressure [Standing (for 1 minute prior to obtaining)] 92/43 L Blood Pressure Mean 81 81 Blood Pressure Mean [Lying] 87 Blood Pressure Mean [Sitting (for 1 minute prior to obtaining)] 84 Blood Pressure Mean [Standing (for 1 minute prior to obtaining)] 59 Pulse Ox 100 100 Oxygen Delivery Method Room Air Room Air Weight Weight: 208 lb 8.917 oz Body Mass Index (BMI) 29.0 Physical Exam Narrative General: Alert, Oriented x3, Cooperative. Fatigued HEENT: Atraumatic, PERRLA, EOMI, Normocephalic. Oral: Oral mucosa dry. No Gingival or Mucosal Lesions/ Ulcerations Neck: Supple, No JVD, Negative Carotid Bruits Chest wall/Lungs: Air entry diminished in bilateral lung bases. No crepitation/rhonchi Cardiovascular: CABG scar. Regular rate and rhythm, Normal S1,S2, systolic murmur right second ICS/LLSB Abdomen: Bowel Sounds Present, Soft, Non Tender. Liver enlarged 4 cm below right costal margin. No abdominal distention/ascites. : No dysuria. No renal angle tenderness. No suprapubic tenderness. Extremities: No edema, Capillary Refill Less than 3 Seconds Skin: No rashes, No breakdown Musculoskeletal: No Tenderness to Palpation of Joints or Extremities Neurological: Cranial nerves II-XII grossly intact, DTR 2+/4. No acute focal neurological deficit. Psych/Mental Status: Flat affect Results Lab / Micro Data 08/26/24 09:30 08/26/24 09:30 Labs: Laboratory Results - last 24 hr 08/26/24 09:30: WBC 15.5 H, RBC 2.04 L, Hgb 6.8 L, Hct 18.6 L, MCV 91.2, MCH 33.3 H, MCHC 36.6 H, RDW Std Deviation 47.4 H, RDW Coeff of Thang 15.5 H, Plt Count 258, MPV 11.2, Immature Gran % (Auto) 1.700 H, Neut % (Auto) 68.9, Lymph % (Auto) 15.8 L, [place] % (Auto) 10.9 H, Eos % (Auto) 2.3, Baso % (Auto) 0.4, A bsolute Neuts (auto) 10.7 H, Absolute Lymphs (auto) 2.45, Nucleated RBC % 3.0, Differential Comment COMMENT, PT 18.1 H, INR 1.5, Sodium 121 L, Potassium 3.1 L, Chloride 82 L, Carbon Dioxide 28.0, Anion Gap 11, BUN 40 H, Creatinine 1.26 H, Estim Creat Clear Calc 83.28, Est GFR (MDRD) Non-Af 70, BUN/Creatinine Ratio 31.5 H, Glucose 165 H, Calcium 9.2, Total Bilirubin 1.99 H, AST 184 H, ALT 158 H , Alkaline Phosphatase 107, Total Protein 5.7 L, Albumin 3.1 L, Globulin 2.6, Albumin/Globulin Ratio 1.2, Lipase 138 H, Blood Type A POSITIVE, Antibody Screen NEGATIVE Rhythm Strip Rhythm Strip: Sinus Rhythm Rate: 97 Ectopy: None Assessment & Plan Assessment/Plan (1) UGIB (upper gastrointestinal bleed): (2) ABLA (acute blood loss anemia): (3) Orthostatic hypotension: PLAN: Plan This 48-year-old gentleman being admitted for symptomatic severe anemia from acute upper GI bleed 1. Acute severe blood loss anemia due to upper GI bleed suspected variceal bleed: Patient is being admitted in ICU. IV fluid normal saline 2 L bolus/fluid restriction. Type and crossmatch 2 units of PRBC and transfuse 1 unit now. Posttransfusion H&H every 6 hourly. Patient is started on IV PPI every 12 hourly bolus, octreotide drip and IV ceftriaxone. GI consulted. Never had EGD or colonoscopy. Baseline normal saline +40 mEq KCl after bolus completion for 1 L. 2. Orthostatic hypotension/dizziness from hypovolemia: Patient is symptomatic with dizziness on orthostatic vitals. volume and blood resuscitation. 3. Chronic alcoholic hepatitis: Patient transaminases have been elevated in February 2024. Total bilirubin was 4.3, improved to 1.99. ALP normal. INR 1.5 elevated, mild coagulopathy. RUQ ultrasound in September 2020 shows liver normal but enlarged 8.9 cm. Pancreas appeared normal. Small 5 mm GB polyp. No stone. CBD 3.3 mm. Repeat RUQ sonogram 4. Hereditary hemochromatosis: Last follow-up with Dr. Adams in October 2020. Ferritin 6 7 177 in August 29. Goal ferritin less than 150 to prevent cirrhosis. 5. Atherosclerotic heart disease status post CABG, chronic HFpEF, mild valvular heart disease, hypertension and dyslipidemia: Had double vessel CABG at the age of 12. No cardiology follow-up since June 2020. 2D echo June 2020 Grossly normal left ventricular size, wall motion, and systolic function. The estimated ejection fraction is 55 %. Trivial mitral valve insufficiency. Trivial tricuspid valve insufficiency. Trivial pulmonic valve insufficiency. Unable to estimate RV systolic pressure/pulmonary artery pressure due to technically difficult study. Transmitral doppler flow suggestive of impaired relaxation of left ventricle Living will/advanced directive/end of life care: Patient does not have living will or advanced directive. His next of kin is his fianc?e. After discussion of benefits/risks procedures involved with full code, DNR CC arrest and DNR CC, the patient opted for full code. Patient does want artificial life support including intubation, tube feed, ventilator and/chest compression, central venous catheter, vasopressor and DC shock if needed Total time spent in [id number] encounter in discussion of advanced directive 17 minutes. Laboratory Results 08/26/24 09:30: WBC 15.5 H, RBC 2.04 L, Hgb 6.8 L, Hct 18.6 L, MCV 91.2, MCH 33.3 H, MCHC 36.6 H, RDW Std Deviation 47.4 H, RDW Coeff of Thang 15.5 H, Plt Count 258, MPV 11.2, Immature Gran % (Auto) 1.700 H, Neut % (Auto) 68.9, Lymph % (Auto) 15.8 L, [place] % (Auto) 10.9 H, Eos % (Auto) 2.3, Baso % (Auto) 0.4, A bsolute Neuts (auto) 10.7 H, Absolute Lymphs (auto) 2.45, Nucleated RBC % 3.0, Differential Comment COMMENT, PT 18.1 H, INR 1.5, Sodium 121 L, Potassium 3.1 L, Chloride 82 L, Carbon Dioxide 28.0, Anion Gap 11, BUN 40 H, Creatinine 1.26 H, Estim Creat Clear Calc 83.28, Est GFR (MDRD) Non-Af 70, BUN/Creatinine Ratio 31.5 H, Glucose 165 H, Calcium 9.2, Total Bilirubin 1.99 H, AST 184 H, ALT 158 H , Alkaline Phosphatase 107, Total Protein 5.7 L, Albumin 3.1 L, Globulin 2.6, Albumin/Globulin Ratio 1.2, Lipase 138 H, Blood Type A POSITIVE, Antibody Screen NEGATIVE, Crossmatch See Detail Laboratory Results 08/26/24 09:30: WBC 15.5 H, RBC 2.04 L, Hgb 6.8 L, Hct 18.6 L, MCV 91.2, MCH 33.3 H, MCHC 36.6 H, RDW Std Deviation 47.4 H, RDW Coeff of Thang 15.5 H, Plt Count 258, MPV 11.2, Immature Gran % (Auto) 1.700 H, Neut % (Auto) 68.9, Lymph % (Auto) 15.8 L, [place] % (Auto) 10.9 H, Eos % (Auto) 2.3, Baso % (Auto) 0.4, A bsolute Neuts (auto) 10.7 H, Absolute Lymphs (auto) 2.45, Nucleated RBC % 3.0, Differential Comment COMMENT, PT 18.1 H, INR 1.5, Sodium 121 L, Potassium 3.1 L, Chloride 82 L, Carbon Dioxide 28.0, Anion Gap 11, BUN 40 H, Creatinine 1.26 H, Estim Creat Clear Calc 83.28, Est GFR (MDRD) Non-Af 70, BUN/Creatinine Ratio 31.5 H, Glucose 165 H, Calcium 9.2, Total Bilirubin 1.99 H, AST 184 H, ALT 158 H, Alkaline Phosphatase 107, Total Protein 5.7 L, A lbumin 3.1 L, Globulin 2.6, Albumin/Globulin Ratio 1.2, Lipase 138 H, Blood Type A POSITIVE, Antibody Screen NEGATIVE Charges/Coding Visit Charges Inpatient E&M: 58395 Init Hosp L3 Procedures Hospitalists Procedures: 60487 Advncd Care Plan 30 Min
--- NOTE | 2024-08-26 11:54 | US_ITS ---
EXAM: US Abdomen Limited, Right Upper Quadrant CLINICAL INDICATION: ALCOHOLIC HEPATITIS, SUSPECTED PORTAL HTN TECHNIQUE: Real-time ultrasound of the right upper quadrant with image documentation. COMPARISON: No relevant prior studies available. FINDINGS: LIVER: The liver measures up to 20.9 cm. Coarse appearing liver, likely secondary to underlying hepatocellular disease. Clinical correlation is recommended. No intrahepatic bile duct dilation. GALLBLADDER: Gallbladder polyp measuring up to 0.6 cm. Gallbladder calculus measuring up to 0.7 cm. Pericholecystic fluid. Negative Chavez's sign. COMMON BILE DUCT: Unremarkable as visualized. No stones. No dilation. PANCREAS: Pancreas not visualized. RIGHT KIDNEY: Apparent lobulation of the right kidney. Underlying mass can not be excluded. Further evaluation with CT or MRI of the abdomen with and without contrast is recommended. No stones. The right kidney measures 11.5 x 7.1 x 6.1 cm. SPLEEN: Spleen measures up to 15.7 cm. US/Abdomen Limited IMPRESSION: 1. Apparent lobulation of the right kidney. Underlying mass can not be exclud ed. Further evaluation with CT or MRI of the abdomen with and without contrast is recommended. 2. Coarse appearing liver, likely secondary to underlying hepatocellular disea se. Clinical correlation is recommended. 3. Cholelithiasis and gallbladder polyp. Findings are equivocal for acute cho lecystitis. Further evaluation with HIDA scan may be beneficial. Reading Location: [id number]
[2024-08-26] MEDS: Octreotide 0.5 MG in Dextrose 5%-Water (100mL Bag) 99 ML 10 MG CONT INF ×2 (13:07→22:33)
[2024-08-26] MEDS: 0.9% Normal Saline (1000mL) 1,000 ML 999 ML IV ×2 (13:07→14:17)
[2024-08-26 14:58] LABS: Bilirubin, Direct 1.12 mg/dL (0.00-0.30)
[2024-08-26] MEDS: KCL 40mEq in 0.9% NS 40 MEQ/1,000 ML IV.SOLN 100 MEQ IV (15:19)
--- OUTSIDE RECORDS SUMMARY | 2024-08-26 15:43 | XMS RPT_ITS | CCD ---
Author Organization [facility] Inform ion Partnership [facility] Care Team Providers Care Fingerprint Classifier Name Role Phone CaryEder Attending Unavailable Care Physician, No Primary Primary Care Unava ilable Care Physician, No Primary Primary Care Provider Unavailable Renata ESPINO, Dr. Cervantes Emergency Provider Christopher ESPINO, Dr. Sagastume Admit Provider Christopher ESPINO, Dr. Sagastume Attending Provider Medications Current Medications Medication Drug Class(es) Dates Sig (Normalized) Sig (Original) amLODIPine 5 mg oral tablet (2 sources) Dihydropyridine Calcium Channel Yousif Start: 06-25-2020 take 1 tablet by mouth once daily Amlodipine 5 mg tablet Active 5 mg PO DAILY 21 0 February 19, 2024 1:00am aspirin 81 mg delayed release oral tablet (3 sources) Platelet Aggregation Inhibitor, Nonsteroidal Anti-inflammatory Drug Start: 12-28-2017 End: 05-28-2020 take 1 tablet by mouth once daily Aspirin (Adult Aspirin Regimen) 81 mg tablet,delayed release (DR/EC) Active 81 mg PO DAILY 90 May 28, 2020 9:03am lisinopril 20 mg oral tablet (3 sources) Angiotensin Converting Enzyme Inhibitor Start: 06-18-2020 take 1 tablet by mouth once daily Lisinopril 20 mg tablet Active 20 mg PO DAILY 90 June 18, 2020 9:20am Start: 05-28-2020 End: 06-18-2020 take 1 tablet by mouth once daily Lisinopril 10 mg tablet Discontinued 10 mg PO DAILY 90 May 28, 2020 12:00am June 18, 2020 9:22am Start: 12-28-2017 End: 12-29-2017 take 1 tablet by mouth once daily Lisinopril 10 mg tablet Discontinued 10 mg PO DAILY December 28, 2017 1:00am December 29, 2017 3:42pm Completed/Discontinued Medications Medication Drug Class(es) Dates Sig (Normalized) Sig (Original) atorvastatin 20 mg oral tablet (1 source) HMG-CoA Reductase Inhibitor Start: 12-29-2017 End: 05-28-2020 take 1 tablet by mouth once daily Atorvastatin 20 mg tablet Discontinued 20 mg PO DAILY 08 01December 29, 2017 1:00am May 28, 2020 9:03am metoprolol tartrate 25 mg oral tablet (1 source) beta-Adrenergic Yousif Start: 12-29-2017 End: 05-28-2020 Metoprolol Tartrate 25 mg tablet Discontinued 12.5 mg PO TWICE A DAY 08 01December 29, 2017 1:00am May 28, 2020 9:03am omeprazole 20 mg delayed release oral tablet (1 source) Proton Pump Inhibitor Start: 12-29-2017 End: 05-28-2020 take 1 tablet by mouth once daily Omeprazole Magnesium (Prilosec Otc) 20 mg tablet,delayed release (DR/EC) Discontinued 20 mg PO DAILY December 29, 2017 1:00am May 28, 2020 8:44am simvastatin 20 mg oral tablet (1 source) HMG-CoA Reductase Inhibitor Start: 07-12-2013 End: 12-29-2017 take 1 tablet by mouth at bedtime Simvastatin 20 MG tablet Discontinued 20 mg PO AT BEDTIME July 12, 2013 12:00am December 29, 2017 3:42pm Problems Active Problems Problem Classification Problem Date Documented Da te Episodic/Chronic Acute posthemorrhagic anemia (2 sources) Acute posthemorrhagic anemia; Translations: [Acute posthemorrhagic anemia] 08-26-2024 Episodic Alcohol-related disorders (2 sources) Alcohol abuse; Translations: [Alcohol abuse, uncomplicated] 08-26-2024 Chronic Coagulation and hemorrhagic disorders (1 source) Thrombocytopenic disorder; Translations: [Thrombocytopenia, unspecified] 02-27-2024 Chronic Coronary atherosclerosis and other heart disease (2 sources) History of myocardial infarction; Translations: [Old myocardial infarction] Onset: 12-28-2017 Chronic Comment on above: Patient was age 30 a t time: [place] to LAD and SVG to CX per Dr. Bashir, [facility] Diseases of white blood cells (1 source) Neutropenia; Translations: [Neutropenia, unspecified] 02-27-2024 Chronic Disorders of lipid metabolism (1 source) Hyperlipidemia; Translations: [Hyperlipidemia, unspecified] 12-28-2017 Chronic Essential hypertension (2 sources) Essential hypertension; Translations: [Essential (primary) hypertension] 06-18-2020 Chronic Gastrointestinal hemorrhage (4 sources) Gastrointestinal hemorrhage, unspecified; Translations: [Upper gastrointestinal bleeding] Onset: 08-26-2024 Episodic Heart valve disorders (1 source) Tricuspid incompetence, non-rheumatic ; Translations: [Nonrheumatic tricuspid (valve) insufficiency] 12-28-2017 Chronic Comment on above: Mild per echo 007: EF recovered to 55%. Nausea and vomiting (1 source) Nausea and vomiting; Translations: [Nausea with vomiting, unspecified] 02-27-2024 Episodic Other circulatory disease (2 sources) Orthostatic hypotension; Translations: [Orthostatic hypotension] 08-26-2024 Episodic Other diseases of kidney and ureters (2 sources) Acute renal insufficiency; Translations: [Disorder of kidney and ureter, unspecified] 08-26-2024 Episodic Other liver diseases (1 source) Elevated liver enzymes level; Translations: [Abnormal levels of other serum enzymes] 06-20-2020 Episodic Other nutritional; endocrine; and metabolic disorders (1 source) Hereditary hemochromatosis; Translations: [Hereditary hemochromatosis] 10-25-2020 Chronic Comment on above: Ferritin 6177 on 08/10.Discussed disease, management with Phlebotomy to keep ferritin less than 150 to prevent cirrhosis.Pt agrees to start Phlebotomy. Past or Other Problems Problem Classification Problem Date Documented Date Episodic/Chronic Other circulatory disease (1 source) H/O: cardiovascular disease; Translations: [Personal history of sudden cardiac arrest] Onset: 08-05-2006 12-28-2017 Episodic Comment on above: Patient was age 30 a t time: witnessed arrest while patient playing basketball Residual codes; unclassified (1 source) History of cardiac catheterization; Translations: [Other specified postprocedural states] Onset: 08-06-2006 12-28-2017 Episodic Comment on above: Per Dr. Rendon @ [facility] : Left main 50-60% diffuse stenosis, short vessel; LAD: severe ostial lesion 80-85%, mid LAD 40-50%; CX, first and second OM disease-free; RCA nondominant/small free of disease. EF 35% with severely hypokinetic mid to distan inferior wall Results Test Name Value Interpretation Reference Range Facility Absolute lymphocyte countOrd ered By: Billy Yanez on 08-26-2024 Lymphocytes Auto (Unsp spec) [#/Vol] 2.45 10*3/uL 0.83-4.51 [facility] Absolute neutrophil countOrd ered By: Billy Yanez on 08-26-2024 Neutrophils (Bld) [#/Vol] 10.7 10*3/uL High 2.0-7.7 [facility] Anion gap in Serum or Plasma Ordered By: Billy Yanez on 08-26-2024 Anion gap [Moles/Vol] 11 mmol/L 5-15 [facility] Automated lymphocyte count a s percentage of total leukocytesOrdered By: Bilyl Yanez on 08-26-2024 Lymphocytes/100 WBC Auto (Unsp spec) 15.8 % Low 19-41 [facility] BUN/creatinine ratioOrdered By: Billy Yanez on 08-26-2024 Urea nitrogen/Creatinine [Mass ratio] 31.5 mg/mg High 10-20 [facility] Basophil percentageOrdered B y: Billy Yanez on 08-26-2024 Basophils/100 WBC (Bld) 0.4 % 0-1 [facility] Bilirubin, totalOrdered By: Billy Yanez on 08-26-2024 Bilirubin [Mass/Vol] 1.99 mg/dL High 0.00-1.30 [facility] Blood manual differential co mment interpretation (narrative result)Ordered By: Billy Yanez on 08-26-2024 Manual differential comment Jony (Bld) [Interp] COMMENT [facility] Comment on above: MONOCYTOSIS. Carbon dioxide, total [Moles /volume] in Central venous bloodOrdered By: Billy Yanez on 08-26-2024 CO2 [Moles/Vol] 28.0 mmol/L 21.0-32.0 [facility] Chloride assayOrdered By: Nicole Yanez on 08-26-2024 Chloride [Moles/Vol] 82 mmol/L Low 98-108 [facility] Eosinophil percentageOrdered By: Billy Yanez on 08-26-2024 Eosinophils/100 WBC (Bld) 2.3 % 0-5 [facility] Erythrocyte distribution wid th ratioOrdered By: Billy Yanez on 08-26-2024 Erythrocyte distribution width (RBC) [Ratio] 15.5 % High 11.6-14.6 [facility] Erythrocyte distribution wid th standard deviationOrdered By: Billy Yanez on 08-26-2024 Erythrocyte distribution width (RBC) [Ratio] 47.4 fl High 35.1-43.9 [facility] Glomerular filtration rate ( GFR) estimation/1.73 sq m using serum, plasma, or whole bOrdered By: Billy Yanez on 08-26-2024 GFR/1.73 sq M.predicted among non-blacks MDRD (S/P/Bld) [Vol rate/Area] 70 mL/min/{1.73_m2} >60 [facility] Comment on above: mL/min/1.73m2 CKD-EP I Creatinine Equation (2020) Hematocrit Auto (Bld) [Volum e fraction]Ordered By: Billy Yanez on 08-26-2024 Hematocrit (Bld) [Volume fraction] 18.6 % Low 40-54 [facility] Hemoglobin measurementOrdere d By: Billy Yanez on 08-26-2024 Hemoglobin (Bld) [Mass/Vol] 6.8 g/dL Low 13.0-16.5 [facility] Immature granulocytes/100 WB C Auto (Bld)Ordered By: Billy Yanez on 08-26-2024 Immature granulocytes/100 WBC (Bld) 1.700 % High 0.0-0.9 [facility] Comment on above: IG% - Immature Granu locytes (promyelocytes, myelocytes and metamyelocytes) > 1% indicates that a LEFT SHIFT is Present. International normalized rat io (INR) calculationOrdered By: Billy Yanez on 08-26-2024 INR Coag (Bld) [Relative time] 1.5 {INR} [facility] Laboratory - Chemistry and C hemistry - challengeOrdered By: Billy Yanez on 08-26-2024 AST [Catalytic activity/Vol] 184 U/L High <38 [facility] Lipase measurementOrdered By : Billyvladimir Yanez 08-26-2024 Lipase [Catalytic activity/Vol] 138 U/L High 13-75 [facility] Comment on above: Please note:LIPASE r evised reference range effective 22. New Lipase methodology. Expected to produce lower values than the previous assay method. NEW Reference Range: 13 - 75 U/L MCV (mean corpuscular volume ) determinationOrdered By: Billy Yanez on 08-26-2024 MCV (RBC) [Entitic vol] 91.2 fL 80-94 [facility] Mean corpuscular hemoglobin (MCH) determinationOrdered By: Billy Yanez on 08-26-2024 MCH (RBC) [Entitic mass] 33.3 pg High 27.0-32.0 [facility] Mean corpuscular hemoglobin concentration (MCHC) determinationOrdered By: Billy Yanez on 08-26-2024 MCHC (RBC) [Mass/Vol] 36.6 g/dL High 32-36 [facility] Mean platelet volume determi nationOrdered By: Billy Yanez on 08-26-2024 Platelet mean volume (Bld) [Entitic vol] 11.2 fL 6.2-12.0 [facility] Monocyte percentageOrdered B y: Billy Yanez on 08-26-2024 Monocytes/100 WBC (Bld) 10.9 % High 0-10 [facility] Neutrophil percentageOrdered By: Billy Yanez on 08-26-2024 Neutrophils/100 WBC (Bld) 68.9 % 47-70 [facility] Nucleated red blood cell per centageOrdered By: Billy Yanez on 08-26-2024 Nucleated RBC/100 WBC (Bld) [Ratio] 3.0 % 0-5 [facility] Platelet countOrdered By: Nicole Yanez on 08-26-2024 Platelets (Bld) [#/Vol] 258 10*3/uL 150-450 [facility] Potassium measurement (mass/ volume)Ordered By: Billy Yanez on 08-26-2024 Potassium (Unsp spec) [Mass/Vol] 3.1 mmol/L Low 3.3-5.1 [facility] Prothrombin timeOrdered By: Billy Yanez on 08-26-2024 PT Coag (PPP) [Time] 18.1 s High 11.7-14.9 [facility] RBC Auto (Bld) [#/Vol]Ordere d By: Billy Yanez on 08-26-2024 RBC (Bld) [#/Vol] 2.04 10*6/uL Low 4.6-6.2 [facility] Serum creatinine measurement (mass/volume)Ordered By: Billy Yanez on 08-26-2024 Creatinine [Mass/Vol] 1.26 mg/dL High 0.70-1.20 [facility] Serum globulin measurementOr dered By: Billy Yanez on 08-26-2024 Globulin (S) [Mass/Vol] 2.6 g/dL 2.2-4.2 [facility] Serum glucose measurement (m ass/volume)Ordered By: Billy Yanez on 08-26-2024 Glucose [Mass/Vol] 165 mg/dL High 70-99 [facility] Serum or plasma alanine bar otransferase (ALT) measurementOrdered By: Billy Yanez on 08-26-2024 ALT [Catalytic activity/Vol] 158 U/L High <47 [facility] Serum or plasma albumin sadi urement (mass/volume)Ordered By: Billy Yanez on 08-26-2024 Albumin [Mass/Vol] 3.1 g/dL Low 3.5-5.0 [facility] Serum or plasma albumin/glob ulin mass ratioOrdered By: Billy Yanez on 08-26-2024 Albumin/Globulin [Mass ratio] 1.2 {ratio} 0.9-2.4 [facility] Serum or plasma alkaline xochitl sphatase measurementOrdered By: Billy Yanez on 08-26-2024 ALP [Catalytic activity/Vol] 107 U/L 40-129 [facility] Serum or plasma calcium sadi urement (mass/volume)Ordered By: Billy Yanez on 08-26-2024 Calcium [Mass/Vol] 9.2 mg/dL 7.6-11.0 [facility] Serum or plasma urea nitroge n measurement (mass/volume)Ordered By: Billy Yanez on 08-26-2024 Urea nitrogen [Mass/Vol] 40 mg/dL High 4-19 [facility] Sodium levelOrdered By: Jason Yanez on 08-26-2024 Sodium [Moles/Vol] 121 mmol/L Low 133-145 [facility] Total proteinOrdered By: Samuel phoenixandreas Yanez on 08-26-2024 Protein [Mass/Vol] 5.7 g/dL Low 5.9-8.4 [facility] White blood cell (WBC) count Ordered By: Billy Renata on 08-26-2024 WBC (Bld) [#/Vol] 15.5 10*3/uL High 4.4-11.0 [facility] CBC W/Diff, Automatedon - Absolute Lymph 0.45 X10 3/uL Low 0.83-4.51 [facility] Comment on above: Performed By: #### L 500.4050, L100.0100, L501.2450, [id number] #### [facility] [address] [place], [address] Absolute Neut 3.3 X10 3/uL Normal 2.0-7.7 [facility] Comment on above: Performed By: #### L 500.4050, L100.0100, L501.2450, [id number] #### [facility] [address] [place], [address] Basophils/100 WBC (Bld) 0.5 % Normal 0-1 [facility] Comment on above: Performed By: #### L 500.4050, L100.0100, L501.2450, [id number] #### [facility] [address] [place], [address] Eosinophils/100 WBC (Bld) 3.2 % Normal 0-5 [facility] Comment on above: Performed By: #### L 500.4050, L100.0100, L501.2450, [id number] #### [facility] [address] [place], [address] Erythrocyte distribution width (RBC) [Ratio] 12.9 % Normal 11.6-14.6 [facility] Comment on above: Performed By: #### L 500.4050, L100.0100, L501.2450, [id number] #### [facility] [address] [place], [address] Hematocrit (Bld) [Volume fraction] 40.6 % Normal 40-54 [facility] Comment on above: Performed By: #### L 500.4050, L100.0100, L501.2450, [id number] #### [facility] [address] [place], [address] Hemoglobin (Bld) [Mass/Vol] 14.4 g/dL Normal 13.0-16.5 [facility] Comment on above: Performed By: #### L 500.4050, L100.0100, L501.2450, [id number] #### [facility] [address] [place], [address] IG% 0.000 Normal 0.0-0.9 [facility] Comment on above: Result Comment: IG% - Immature Granulocytes (promyelocytes, myelocytes and metamyelocytes) > 1% indicates that a LEFT SHIFT is Present. Performed By: #### L 500.4050, L100.0100, L501.2450, M100.7900 #### [facility] [address] [place], [address] Lymphocytes/100 WBC (Bld) 10.4 % Low 19-41 [facility] Comment on above: Performed By: #### L 500.4050, L100.0100, L501.2450, [id number] #### [facility] [address] [place], [address] MCH (RBC) [Entitic mass] 33.6 pg High 27.0-32.0 [facility] Comment on above: Performed By: #### L 500.4050, L100.0100, L501.2450, [id number] #### [facility] [address] [place], [address] MCHC (RBC) [Mass/Vol] 35.5 g/dL Normal 32-36 [facility] Comment on above: Performed By: #### L 500.4050, L100.0100, L501.2450, M100.7900 #### [facility] [address] [place], [address] MCV (RBC) [Entitic vol] 94.6 fL High 80-94 [facility] Comment on above: Performed By: #### L 500.4050, L100.0100, L501.2450, [id number] #### [facility] [address] [place], [address] Monocytes/100 WBC (Bld) 9.0 % Normal 0-10 [facility] Comment on above: Performed By: #### L 500.4050, L100.0100, L501.2450, [id number] #### [facility] [address] [place], [address] Neutrophils/100 WBC (Bld) 76.9 % High 47-70 [facility] Comment on above: Performed By: #### L 500.4050, L100.0100, L501.2450, M100.7900 #### [facility] [address] [place], [address] Nucleated RBC (Bld) [#/Vol] 0 10*3/uL Normal 0-5 [facility] Comment on above: Performed By: #### L 500.4050, L100.0100, L501.2450, [id number] #### [facility] [address] [place], [address] Platelet mean volume (Bld) [Entitic vol] 10.9 fL Normal 6.2-12.0 [facility] Comment on above: Performed By: #### L 500.4050, L100.0100, L501.2450, [id number] #### [facility] [address] [place], [address] Platelets (Bld) [#/Vol] 89 10*3/uL Low 150-450 [facility] Comment on above: Performed By: #### L 500.4050, L100.0100, L501.2450, [id number] #### [facility] [address] [place], [address] RBC (Bld) [#/Vol] 4.29 10*6/uL Low 4.6-6.2 [facility] Comment on above: Performed By: #### L 500.4050, L100.0100, L501.2450, M100.7900 #### [facility] [address] [place], [address] RDW SD 44.7 fl High 35.1-43.9 [facility] Comment on above: Performed By: #### L 500.4050, L100.0100, L501.2450, M100.7900 #### [facility] [address] [place], [address] WBC (Bld) [#/Vol] 4.3 10*3/uL Low 4.4-11.0 [facility] Comment on above: Performed By: #### L 500.4050, L100.0100, L501.2450, [id number] #### [facility] [address] [place], [address] Comprehensive Metabolic Prof [facility] 02-19-2024 Albumin [Mass/Vol] 3.6 g/dL Normal 3.2-5.0 [facility] Comment on above: Performed By: #### L 500.4050, L100.0100, L501.2450, M100.7900 #### [facility] [address] [place], [address] Albumin/Globulin [Mass ratio] 0.9 {ratio} Normal 0.9-2.4 [facility] Comment on above: Performed By: #### L 500.4050, L100.0100, L501.2450, M100.7900 #### [facility] [address] [place], [address] ALK P 100 U/L Normal 45-117 [facility] Comment on above: Performed By: #### L 500.4050, L100.0100, L501.2450, M100.7900 #### [facility] [address] [place], [address] ALT [Catalytic activity/Vol] 185 U/L High 16-61 [facility] Comment on above: Performed By: #### L 500.4050, L100.0100, L501.2450, M100.7900 #### [facility] [address] [place], [address] AST [Catalytic activity/Vol] 176 U/L High 15-37 [facility] Comment on above: Performed By: #### L 500.4050, L100.0100, L501.2450, M100.7900 #### [facility] [address] [place], [address] Bilirubin [Mass/Vol] 4.30 mg/dL High 0.20-1.00 [facility] Comment on above: Result Comment: For patients on eltrombopag therapy, use of Dimension [place] TBIL is not recommended. Performed By: #### L 500.4050, L100.0100, L501.2450, M100.7900 #### [facility] [address] [place], [address] BUN/CRE 15.0 RATIO Normal 10-20 [facility] Comment on above: Performed By: #### L 500.4050, L100.0100, L501.2450, M100.7900 #### [facility] [address] [place], [address] CA,Total 9.4 mg/dL Normal 8.5-10.1 [facility] Comment on above: Performed By: #### L 500.4050, L100.0100, L501.2450, M100.7900 #### [facility] [address] [place], [address] Chloride [Moles/Vol] 102 mmol/L Normal 98-107 [facility] Comment on above: Performed By: #### L 500.4050, L100.0100, L501.2450, M100.7900 #### [facility] [address] [place], [address] CO2 [Moles/Vol] 25.0 mmol/L Normal 21.0-32.0 [facility] Comment on above: Performed By: #### L 500.4050, L100.0100, L501.2450, M100.7900 #### [facility] [address] [place], [address] Creatinine [Mass/Vol] 0.94 mg/dL Normal 0.70-1.30 [facility] Comment on above: Result Comment: The validity of the calculated GFR GFRAA in patients over 70 years has not been determined. Clinical correlation is essential. Performed By: #### L 500.4050, L100.0100, L501.2450, M100.7900 #### [facility] [address] [place], [address] ECRCL 118.56 ml/min Normal [facility] Comment on above: Performed By: #### L 500.4050, L100.0100, L501.2450, M100.7900 #### [facility] [address] [place], [address] EST GFR - AA 110 mL/min Normal >60 [facility] Comment on above: Result Comment: Afri can Irish GFR Calc Performed By: #### L 500.4050, L100.0100, L501.2450, M100.7900 #### [facility] [address] [place], [address] GAP 6 Normal 5-15 [facility] Comment on above: Performed By: #### L 500.4050, L100.0100, L501.2450, M100.7900 #### [facility] [address] [place], [address] GFR/1.73 sq M.predicted among non-blacks MDRD (S/P/Bld) [Vol rate/Area] 91 mL/min/{1.73_m2} Normal >60 [facility] Comment on above: Result Comment: Non- GFR Calc Performed By: #### L 500.4050, L100.0100, L501.2450, M100.7900 #### [facility] [address] [place], [address] Globulin (S) [Mass/Vol] 4.2 g/dL Normal 2.2-4.2 [facility] Comment on above: Performed By: #### L 500.4050, L100.0100, L501.2450, M100.7900 #### [facility] [address] [place], [address] Glucose [Mass/Vol] 144 mg/dL High 74-106 [facility] Comment on above: Result Comment: Fast ing Glucose result greater than or equal to 126 mg/dL suggests DIABETES MELLITUS per A.D.A. criteria. Performed By: #### L 500.4050, L100.0100, L501.2450, M100.7900 #### [facility] [address] [place], [address] Potassium [Moles/Vol] 3.8 mmol/L Normal 3.5-5.1 [facility] Comment on above: Performed By: #### L 500.4050, L100.0100, L501.2450, M100.7900 #### [facility] [address] [place], [address] Sodium [Moles/Vol] 133 mmol/L Low 136-145 [facility] Comment on above: Performed By: #### L 500.4050, L100.0100, L501.2450, M100.7900 #### [facility] [address] [place], [address] T PROT 7.8 g/dL Normal 6.4-8.2 [facility] Comment on above: Performed By: #### L 500.4050, L100.0100, L501.2450, M100.7900 #### [facility] [address] [place], [address] Urea nitrogen [Mass/Vol] 14 mg/dL Normal 7-18 [facility] Comment on above: Performed By: #### L 500.4050, L100.0100, L501.2450, M100.7900 #### [facility] [address] [place], [address] Emergency Department Summary on 02-19-2024 Emergency Department Summary [facility] Medical Records Department [address] [place] [address] Emergency Department Summary 02/19/24 MR#: [id number] Acct: [id number] Name: SHEA,CATARINO TSAI Rep #: [id number] : 1975 48 From: Eder Townsend MD PCP: Care Physician,No Primary Status:REG ER Location: ED HPI HPI - GI History of Present Illness Chief Complaint: GI Bleed Narrative Narrative: 48-year-old male past medical history of of [place] when he was 29, also states that he will have periods of binge drinking of alcohol, presents with black stool, and vomiting of black substance as well. Symptoms started yesterday when he started noticing that he was having black, tarry stool. It has not become loose. This morning when he awoke he felt sick to his stomach and nauseated and he states he vomited twice. It was very dark and black as well. He denies taking blood thinners. He does not take NSAIDs either. No chest pain or shortness of breath, no lightheadedness or near syncope. No exacerbating or alleviating factors. States he lifted up on the Internet and there is concern for internal bleeding. 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 (08/05/06) Home Medications ???Medication ???Instructions ???Recorded ???Last Taken ???Type aspirin 81 mg tablet,delayed 81 mg PO DAILY #90 tabs 05/28/20 Unknown Rx release (Adult Aspirin Regimen) lisinopril 20 mg tablet 20 mg PO DAILY #90 tabs 06/18/20 Unknown Rx amlodipine 5 mg tablet 5 mg PO DAILY #30 tabs 06/25/20 Unknown Rx amlodipine 5 mg tablet 5 mg PO DAILY #21 tabs 02/19/24 Unknown Rx Allergy/AdvReac Type Severity Reaction Status Date / Time No Known Allergies Allergy Verified 02/19/24 12:04 Family History Father Negative for ASCVD Mother Negative for ASCVD Grandfather CVA (cerebral vascular accident) Surgical History History of mandibular surgery History of left heart catheterization (08/06/06) 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 HEENT: No sore throat. No neck pain. No loss of vision. No rhinorrhea. Cardiovascular: No chest pain. No palpitations. No pedal edema. Respiratory: No cough, no shortness of breath. Abdominal: No abdominal pain. Positive nausea. 2 episodes of vomiting, black substance. Positive black stool since yesterday. Genitourinary: No dysuria. No hematuria. Musculoskeletal: No myalgias. No arthralgias. Neurologic: No headaches. No dizziness. No lightheadedness. Skin: No rash. No change in color. EXAM Physical Exam Narrative Exam Narrative: Afebrile. Vital signs noted. Nontoxic-appearing. Resting comfortably on the cot. Cardiovascular examination reveals a regular rate and rhythm with intermittent tachycardia. Lungs are clear to auscultation bilaterally. Abdomen is soft and nontender with positive bowel sounds. No guarding or rebound. Neurological examination is nonfocal and nonlateralizing. There is no central cyanosis. He does not appear overtly pallored. Const Vital Signs: 02/19/24 12:04 Temperature 97.3 F L Temperature Source Temporal Pulse Rate 102 H Respiratory Rate 15 Blood Pressure 182/112 H Blood Pressure Mean 135 Pulse Ox 96 Oxygen Delivery Method Room Air MDM MDM MDM Narrative Medical decision making narrative: Differential diagnosis includes but not limited to alcoholic gastritis with bleeding versus ulcer bleeding versus esophageal varices. Initially, I did discuss NG tube placement with him to check gastric contents, but we will forego that until laboratory work returns including CBC, CMP, and lipase. Chaperoned rectal examination will be performed to obtain sample for fecal occult blood. I reviewed his laboratory work and he has neutropenia 4.3 with hemoglobin normal at 14.4, platelet count low at 89. Sodium is slightly low at 133 with potassium normal 3.8, chloride 102. Glucose is elevated at 144 with a normal anion gap of 6. He has elevated LFTs with an AST of 176 and an ALT of 185, and total bilirubin 4.3. He is not having any abdominal pain. I do not feel he requires any imaging. When compared to [facility] (more content not included)... Normal [facility] Lipaseon 02-19-2024 Lipase [Catalytic activity/Vol] 54 U/L Normal 13-75 [facility] Comment on above: Result Comment: Yifan morales note: LIPASE revised reference range effective 22. New Lipase methodology. Expected to produce lower values than the previous assay method. NEW Reference Range: 13 - 75 U/L Performed By: #### L 500.4050, L100.0100, L501.2450, M100.7900 #### [facility] [address] [place], [address] Stool Occult Blood iFOBon STOB Negative Normal [facility] Comment on above: Performed By: #### L 500.4050, L100.0100, L501.2450, M100.7900 #### [facility] [address] [place], [address] CNOVon 05-16-2020 CNOV Office Visit (IFDSF ) CATARINO VALDIVIA ([id number]) 1975 M Date Time Provider Department 05/16/20 1:30 PM JOSE GEORGE DS During your visit today, we recorded the following information about you: Jose George MD 05/16/2020 2:44 PM Signed INFECTIOUS DISEASE - OUTPATIENT INITIAL CONSULT Service Date: May 16, 2020 Service Time: 1:30 PM Patient Name: Catarino Valdivia Date of : 1975 SUBJECTIVE: Source of information: Current [facility] records reviewed and summarized below Provider requesting the consultation: Ashu Gar APRN.RAMAN Chief Complaint / Reason for Consult: Tick bite, initial encounter PATIENT DID NOT SHOW FOR APPOINTMENT FOLLOWING DOCUMENTED PRIOR TO VISIT Jose George M.D. Staff, Infectious Disease [place], [place] HPI: Catarino Valdivia is a 44 year old male Patient was seen in the outpatient setting on 05/10/2020. --- Per note, reports tick on his back on 04/25, removed by his significant other, tick was engorged, reports 1 to 1 1/2 weeks later noticed a red rash on his back which increased in size. Reports feels fine but wants to inquire about Lyme disease. --- Examination showed 11 mm x 8 mm oval rash noted on patient's right scapula. Rash has erythematous base. No central clearing. Area representing previous tick bite noted in center of rash. No remote redness. No axillary adenopathy. No drainage --- He was prescribed doxycycline 100 mg p.o. twice daily x10 days Laboratory Studies (I personally reviewed the clinical labs and microbiology data): None Microbiology: None Imaging (I personally visualized the films below): None Referring Provider: ASHU GAR ([facility]) [[id number]] Allergies As of Date: 05/16/2020 (No Known Allergies) Date Reviewed: 05/10/2020 Reviewed by: Ashu ([facility]) Cong - Fully Assessed Reason for Visit: No Show [1558] Primary Visit Diagnosis:Tick bite, initial encounter [W57.XXXA] Prescriptions as of 05/16/2020 Sig: DOXYCYCLINE HYCLATE 100 MG TA* Take 1 tablet by mouth twice * MELOXICAM 7.5 MG TABLET Take 1 tablet by mouth once d* Patient not taking: Reported on 05/10/2020 TADALAFIL 10 MG TABLET Take 1 tablet by mouth. TAKE * TRIAMCINOLONE ACETONIDE 0.1 %* Apply 1 application to affect* Patient not taking: Reported on 05/10/2020 ADULT ASPIRIN EC LOW STRENGTH* Take one(1) tablet daily. Patient not taking: LISINOPRIL 10 MG TABLET Take one(1) tablet daily. DAILY MULTIVITAMIN TABLET Take one(1) tablet daily. Problem List As Of Date: 05/16/2020 (None) Encounter Status:Closed by JOSE GEORGE on 05/16/20 Normal [facility] CNOVon 05-10-2020 CNOV Office Visit ([facility]WSTR ) CATARINO VALDIVIA ([id number]) 1975 M Date Time Provider Department 05/10/20 9:45 AM ASHU GAR (RAMAN) [facility] During your visit today, we recorded the following information about you: Temperature Pulse Respiration Blood pressure 96.8 degrees 72/minute 18/minute 138/90 Weight 101.7 kg Ashu Gar APRN.RAMAN 05/10/2020 10:35 AM Signed Subjective HPI Nontoxic-appearing male presents urgent care chief complaint tick bite. Duration of symptoms 3 weeks. Patient states initially noticed a tick on his back April 25. Significant other remove tick without difficulties. Tick was engorged. Patient states a week to week and a half later he noticed a red rash on his back. Rash has increased in size. Denies any OTC medication use. Denies any pain. Patient states feels fine today reason for today's visit is i to ensure he does not have Lyme disease. Denies any fevers, nausea, vomiting, body aches, chills, joint pain, headache, abdominal pain, cough, chest pain shortness of breath or change in bowel or bladder habit. Past medical history prescription medication use and allergies reviewed. Currently on no medications. .Patient presents with: tick bite: tick bite on back since 04/25 PAST MEDICAL HISTORY Diagnosis Date - Coronary atherosclerosis of unspecified type of vessel, [place] or graft - Pure hypercholesterolemia - Unspecified essential hypertension PAST SURGICAL HISTORY Procedure Laterality Date - MANDIBLE FRACTURE CARE - PAST SURGICAL HISTORY OF CABG ALLERGIES Patient has no known allergies. MEDICATIONS LISINOPRIL 10 MG TAB Take one(1) tablet daily. multivitamins(DAILY MULTIVITAMIN TAB) Take one(1) tablet daily. meloxicam (MOBIC) 7.5 mg tablet Take 1 tablet by mouth once daily. Tadalafil (CIALIS) 10 mg tablet Take 1 tablet by mouth. TAKE 1-2 HOURS BEFORE SEXUAL INTERCOURSE NEEDED. triamcinolone acetonide 0.1 % cream Apply 1 application to affected area three times daily. Apply to affected area. aspirin(ADULT ASPIRIN EC LOW STRENGTH 81 MG TAB, DELAYED RELEASE) Take one(1) tablet daily. FAMILY HISTORY Problem Relation Age of Onset - None Mother - None Father Social History Tobacco Use - Smoking status: Current Every Day Smoker Types: Cigars - Smokeless tobacco: Former User Types: Snuff - Tobacco comment: 2cans per week Substance Use Topics - Alcohol use: Yes - Drug use: No Review of Systems Constitutional: Negative for chills, fever and malaise/fatigue. HENT: Negative for congestion, ear discharge, ear pain, sinus pain and sore throat. Eyes: Negative for blurred vision, pain, discharge and redness. Respiratory: Negative for cough, sputum production, shortness of breath and wheezing. Cardiovascular: Negative for chest pain. Gastrointestinal: Negative for abdominal pain, diarrhea, nausea and vomiting. Genitourinary: Negative. Musculoskeletal: Negative for myalgias. Skin: Positive for rash. Negative for itching. Neurological: Negative for dizziness and headaches. Objective Physical Exam Constitutional: General: He is not in acute distress. Appearance: He is not diaphoretic. HENT: Right Ear: External ear normal. Left Ear: External ear normal. Mouth/Throat: Mouth: Mucous membranes are moist. Pharynx: No oropharyngeal exudate or posterior oropharyngeal erythema. Eyes: Conjunctiva/sclera: Conjunctivae normal. Pupils: Pupils are equal, round, and reactive to light. Cardiovascular: Rate and Rhythm: Normal rate and regular rhythm. Pulmonary: Effort: Pulmonary effort is normal. No tachypnea, accessory muscle usage or respiratory distress. Breath sounds: Normal breath sounds. Abdominal: Palpations: Abdomen is soft. Tenderness: There is no abdominal tenderness. Musculoskeletal: Cervical back: Normal range of motion and neck supple. Lymphadenopathy: Cervical: No cervical adenopathy. Skin: General: Skin is warm and dry. Comments: 11 mm x 8 mm oval rash noted on patient's right scapula. Rash has erythematous base. No central clearing. Area representing previous tick bite noted in center of rash. No remote redness. No axillary adenopathy. No drainage. Neurological: Mental Status: He is alert and oriented to person, place, and time. ASSESSMENT/PLAN: 1. Tick bite, initial encounter - ICD9: 919.4, E906.4, ICD10: W57.XXXA - CONSULT TO INFECTIOUS DISEASES Patient was placed on doxycycline. Patient noticed rash approximately 7 to 10 days after engorged tick removal. Infectious disease consult placed. Will schedule appointment today. Patient was educated on supportive therapies. Patient will follow up with primary care provider as needed. Patient was instructed to immediately proceed to emergency room for any new, worsening, or symptoms lasting longer than anticipated. The patient's clinical prese (more content not included)... Normal [facility] Vital Signs Date Time Vital Sign Value Performing Clinician Milagros hernández 08-26-2024 12:28-0400 Body height 180.34 cm No Primary Care Physician [facility] 08-26-2024 12:28-0400 Body mass index (BMI) [Ratio] 28.9 kg/m2 No Primary Care Physician [facility] 08-26-2024 12:28-0400 Body weight 94.12 kg No Primary Care Physician [facility] 08-26-2024 12:00-0400 Body temperature 98.7 [degF] No Primary Care Physician [facility] 08-26-2024 12:00-0400 Diastolic blood pressure 68 mm[Hg] No Primary Care Physician [facility] 08-26-2024 12:00-0400 Heart rate 99 /min No Primary Care Physician [facility] 08-26-2024 12:00-0400 Respiratory rate 14 /min No Primary Care Physician [facility] 08-26-2024 12:00-0400 SaO2% (BldA) [Mass fraction] 99 % No Primary Care Physician [facility] 08-26-2024 12:00-0400 Systolic blood pressure 128 mm[Hg] No Primary Care Physician [facility] Encounters Encounter Date Encounter Type Care Provider Facility Start: 08-26-2024 Evaluation and management of inpatient Dr. Mitesh White MD -Intensive Care Unit Work Phone: Start: 02-19-2024 End: 02-19-2024 Emergency department patient visit Eder Townsend Facility:[facility] Procedures Date Procedure Procedure Detail Performing Clinician Start: 08-26-2024 Estimated creatinine clearance No Primary Care Physician Start: 08-09-2006 History of coronary artery bypass grafting S/P CABG x 2 No Primary Care Physician Comment on above: Patient was age 30 a t time: [place] to LAD and SVG to CX per Dr. Bashir, [facility] Plan of Treatment Date Care Activity Detail Author Start: 08-27-2024 Prothrombin time [facility] Start: 08-27-2024 [facility] Start: 08-26-2024 [facility] Start: 08-26-2024 Esophagogastroduodenoscopy EGD (Not Applicable) [facility] Start: 08-26-2024 [facility] Start: 08-26-2024 Following clinical pathway protocol [facility] Start: 08-26-2024 Assessment of risk of venous thromboembolism [facility] Start: 08-26-2024 Bedrest [facility] Start: 08-26-2024 Continuous pulse oximetry [facility] Start: 08-26-2024 Incentive spirometry [facility] Start: 08-26-2024 Insertion of catheter into peripheral vein [facility] Start: 08-26-2024 Measuring intake and output [facility] Start: 08-26-2024 Providing care according to standard [facility] Start: 08-26-2024 Referral to gastroenterology service [facility] Start: 08-26-2024 Vital signs measurements [facility] Start: 08-26-2024 End: 08-26-2024 [facility] Start: 08-26-2024 Ultrasonography of abdomen Abdomen Limited [facility] Start: 08-26-2024 Gamma glutamyl transferase measurement [facility] Start: 08-26-2024 Verification routine [facility] Start: 08-26-2024 Hospital admission, emergency, from emergency room, medical nature [facility] Start: 08-26-2024 Admission procedure [facility] Start: 08-26-2024 End: 08-26-2024 Administration of blood product [facility] Start: 08-26-2024 Leukocyte reduced red blood cells [facility] Start: 08-26-2024 [facility] Start: 08-26-2024 Measurement of occult blood in stool specimen using immunoassay [facility] Alanine aminotransfe rase [Enzymatic activity/volume] in Serum or Plasma [facility] Albumin [Mass/volume ] in Serum or Plasma [facility] Alkaline phosphatase [Enzymatic activity/volume] in Serum or Plasma [facility] Anion gap in Serum or Plasma [facility] Bilirubin, total measurement [facility] Bilirubin.direct [Ma ss/volume] in Serum or Plasma [facility] Bilirubin.direct [Ma ss/volume] in Serum or Plasma [facility] BUN/Creatinine ratio [facility] Calcium [Mass/volume ] in Serum or Plasma [facility] Carbon dioxide, tota l [Moles/volume] in Central venous blood [facility] Creatinine [Mass/vol ume] in Serum or Plasma [facility] Erythrocyte mean cor puscular volume determination [facility] Ethanol [Mass/volume ] in Serum or Plasma [facility] Glucose [Mass/volume ] in Serum or Plasma [facility] Hematocrit [Volume F raction] of Blood [facility] Hematocrit [Volume F raction] of Blood [facility] Hematocrit [Volume F raction] of Blood [facility] Hematocrit [Volume F raction] of Blood [facility] Hemoglobin [Mass/volume] in Blood [facility] Hemoglobin [Mass/volume] in Blood [facility] Hemoglobin [Mass/volume] in Blood [facility] Hemoglobin [Mass/volume] in Blood [facility] INR in Blood by Coagulation assay [facility] Leukocytes [#/volume] in Blood [facility] Mean corpuscular hem oglobin concentration determination [facility] Mean corpuscular hem oglobin determination [facility] Measurement of renal function [facility] Neutrophil count [facility] Neutrophil percent d ifferential count [facility] Platelets [#/volume] in Blood [facility] Potassium measurement [facility] Red blood cell count [facility] Red cell distributio n width determination [facility] Serum chloride measurement [facility] Sodium measurement [facility] Total protein measurement [facility] Urea nitrogen [Mass/ volume] in Serum or Plasma [facility] Payers Date Payer Category Payer Self-pay 2024 Unknown [id number] Private Health Insurance [id number] Unknown [id number] Social History Date Type Detail Facility Start: [facility]-26-[facility]24 [facility] Start: 1975 Sex Assigned At Male [facility] History and physical note 08-26-2024 Note Date & Type Note Facility 08-26-2024 History and physi regis note [facility] Discharge summary 08-26-2024 Note Date & Type Note Facility 08-26-2024 Discharge summary [facility] Progress note 05-16-2020 Note Date & Type Note Facility 05-16-2020 Note HNO ID: [id number] Author: Jose George Service: ? Author Type: Physician Type: Progress Notes Filed: 05/16/2020 2:44 PM Note Text: Summary: NO SHOW INFECTIOUS DISEASE - OUTPATIENT INITIAL CONSULT Service Date: May 16, 2020 Service Time: 1:30 PM Patient Name: Catarino Valdivia Date of : 1975 SUBJECTIVE: Source of information: Current [facility] records reviewed and summarized below Provider requesting the consultation: Ashu Gar APRN.RAMAN Chief Complaint / Reason for Consult: Tick bite, initial encounter PATIENT DID NOT SHOW FOR APPOINTMENT FOLLOWING DOCUMENTED PRIOR TO VISIT Jose George M.D. Staff, Infectious Disease [place], [place] HPI: Catarino Valdivia is a 44 year old male Patient was seen in the outpatient setting on 05/10/2020. --- Per note, reports tick on his back on 04/25, removed by his significant other, tick was engorged, reports 1 to 1 1/2 weeks later noticed a red rash on his back which increased in size. Reports feels fine but wants to inquire about Lyme disease. --- Examination showed 11 mm x 8 mm oval rash noted on patient's right scapula. Rash has erythematous base. No central clearing. Area representing previous tick bite noted in center of rash. No remote redness. No axillary adenopathy. No drainage --- He was prescribed doxycycline 100 mg p.o. twice daily x10 days Laboratory Studies (I personally reviewed the clinical labs and microbiology data): None Microbiology: None Imaging (I personally visualized the films below): None [facility] Progress note 05-10-2020 Note Date & Type Note Facility 05-10-2020 Note HNO ID: [id number] Author: Ashu (Raman) Cong Service: ? Author Type: Nurse Practitioner Type: Progress Notes Filed: 05/10/2020 10:35 AM Note Text: Subjective HPI Nontoxic-appearing male presents urgent care chief complaint tick bite. Duration of symptoms 3 weeks. Patient states initially noticed a tick on his back April 25. Significant other remove tick without difficulties. Tick was engorged. Patient states a week to week and a half later he noticed a red rash on his back. Rash has increased in size. Denies any OTC medication use. Denies any pain. Patient states feels fine today reason for today's visit is i to ensure he does not have Lyme disease. Denies any fevers, nausea, vomiting, body aches, chills, joint pain, headache, abdominal pain, cough, chest pain shortness of breath or change in bowel or bladder habit. Past medical history prescription medication use and allergies reviewed. Currently on no medications. .Patient presents with: tick bite: tick bite on back since 04/25 PAST MEDICAL HISTORY Diagnosis Date - Coronary atherosclerosis of unspecified type of vessel, [place] or graft - Pure hypercholesterolemia - Unspecified essential hypertension PAST SURGICAL HISTORY Procedure Laterality Date - MANDIBLE FRACTURE CARE - PAST SURGICAL HISTORY OF CABG ALLERGIES Patient has no known allergies. MEDICATIONS LISINOPRIL 10 MG TAB Take one(1) tablet daily. multivitamins(DAILY MULTIVITAMIN TAB) Take one(1) tablet daily. meloxicam (MOBIC) 7.5 mg tablet Take 1 tablet by mouth once daily. Tadalafil (CIALIS) 10 mg tablet Take 1 tablet by mouth. TAKE 1-2 HOURS BEFORE SEXUAL INTERCOURSE NEEDED. triamcinolone acetonide 0.1 % cream Apply 1 application to affected area three times daily. Apply to affected area. aspirin(ADULT ASPIRIN EC LOW STRENGTH 81 MG TAB, DELAYED RELEASE) Take one(1) tablet daily. FAMILY HISTORY Problem Relation Age of Onset - None Mother - None Father Social History Tobacco Use - Smoking status: Current Every Day Smoker Types: Cigars - Smokeless tobacco: Former User Types: Snuff - Tobacco comment: 2cans per week Substance Use Topics - Alcohol use: Yes - Drug use: No Review of Systems Constitutional: Negative for chills, fever and malaise/fatigue. HENT: Negative for congestion, ear discharge, ear pain, sinus pain and sore throat. Eyes: Negative for blurred vision, pain, discharge and redness. Respiratory: Negative for cough, sputum production, shortness of breath and wheezing. Cardiovascular: Negative for chest pain. Gastrointestinal: Negative for abdominal pain, diarrhea, nausea and vomiting. Genitourinary: Negative. Musculoskeletal: Negative for myalgias. Skin: Positive for rash. Negative for itching. Neurological: Negative for dizziness and headaches. Objective Physical Exam Constitutional: General: He is not in acute distress. Appearance: He is not diaphoretic. HENT: Right Ear: External ear normal. Left Ear: External ear normal. Mouth/Throat: Mouth: Mucous membranes are moist. Pharynx: No oropharyngeal exudate or posterior oropharyngeal erythema. Eyes: Conjunctiva/sclera: Conjunctivae normal. Pupils: Pupils are equal, round, and reactive to light. Cardiovascular: Rate and Rhythm: Normal rate and regular rhythm. Pulmonary: Effort: Pulmonary effort is normal. No tachypnea, accessory muscle usage or respiratory distress. Breath sounds: Normal breath sounds. Abdominal: Palpations: Abdomen is soft. Tenderness: There is no abdominal tenderness. Musculoskeletal: Cervical back: Normal range of motion and neck supple. Lymphadenopathy: Cervical: No cervical adenopathy. Skin: General: Skin is warm and dry. Comments: 11 mm x 8 mm oval rash noted on patient's right scapula. Rash has erythematous base. No central clearing. Area representing previous tick bite noted in center of rash. No remote redness. No axillary adenopathy. No drainage. Neurological: Mental Status: He is alert and oriented to person, place, and time. ASSESSMENT/PLAN: 1. Tick bite, initial encounter - ICD9: 919.4, E906.4, ICD10: W57.XXXA - CONSULT TO INFECTIOUS DISEASES Patient was placed on doxycycline. Patient noticed rash approximately 7 to 10 days after engorged tick removal. Infectious disease consult placed. Will schedule appointment today. Patient was educated on supportive therapies. Patient will follow up with primary care provider as needed. Patient was instructed to immediately proceed to emergency room for any new, worsening, or symptoms lasting longer than anticipated. The patient's clinical presentation is otherwise unremarkable at this time. Based on exam and clinical finding, the patient is stable for discharge. Plan of care was discussed with patient. Patient verbalizes understanding and agrees to plan of care. This note was generated using mPortico software. It may contain errors in (more content not included)... [facility] Discharge summary Note Date & Type Note Facility Discharge summary Note Date/Time August 26, 2024 11:10am [facility] Medical Records Department [address] [place] [address] Emergency Department Summary 08/26/24 MR#: [id number] Acct: [id number] Name: SHEACATARINO Rep #:[id number] : 1975 48 From: Billy Yanez MD PCP: Care Physician,No Primary Status :REG ER Location: ED HPI History of Present Illness Chief Complaint: Nausea/Vomiting Informant: patient Narrative Narrative: 48-year-old male presents with nausea and vomiting for the past 3 to 4 days thathas mostly been either hematemesis bright red blood or dark red blood as well asdark red or black stools. Some mild bilateral flank pain off and on feels more like muscle pain, no other central abdominal pains. Has been feeling lightheaded, tired and weak, no syncope. Some dyspnea with exertion or after vomiting but no chest pain. He has a history of a CABG, but has been noncompliant with his medications for several years taking nothing including aspirin. Used to be a heavy alcohol drinker but stopped years ago, but he had some alcohol on 12 August 2 weeks ago, and then had a couple days without alcohol and then had a golf trip and has been drinking heavily since, about 12 beers and5 or 6 shots of hard liquor per day. 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) Atherosclerotic heart disease of [place] coronary artery without angina pectoris History of sudden cardiac arrest successfully resuscitated (08/05/06) Home Medications ?Medication ?Instructions ?Recorded ?Last Taken ?Type aspirin 81 mg tablet,delayed 81 mg PO DAILY #90 tabs 0 05/28/20 Unknown Rx release (Adult Aspirin Regimen) lisinopril 20 mg tablet 20 mg PO DAILY #90 tabs 05/ Unknown Rx amlodipine 5 mg tablet 5 mg PO DAILY #30 tabs 06/25 Unknown Rx amlodipine 5 mg tablet 5 mg PO DAILY #21 tabs 02/18 Unknown Rx Allergy/AdvReac Type Severity Reaction Status Date / Time No Known Allergies Allergy Verified 08/26/24 09:03 Family History Father Negative for ASCVD Mother Negative for ASCVD Grandfather CVA (cerebral vascular accident) Surgical History History of mandibular surgery History of left heart catheterization (08/06/06) S/P CABG x 2 (08/09/06) Social History Smoking Status: Former smoker pack-years: 12 Electronic Cigarette Use: with nicotine alcohol intake: current alcohol intake frequency: a few times a week substance use type: does not use caffeine: Yes Type: coffee Number of servings: 1 ROS ROS ED Constitutional Constitutional ED: Reports fatigue; Denies chills or fever(s) Eyes Eyes: Denies change in vision or diplopia ENT ENT ED: Denies rhinorrhea or sore throat Cardiovascular Cardiovascular: Reports dyspnea on exertion and lightheadedness; Denies chest pain, leg edema, palpitations or syncope Respiratory/Chest Respiratory/Chest: Reports dyspnea on exertion; Denies cough Gastrointestinal Gastrointestinal: Reports abdominal pain, hematemesis, melena, nausea and vomiting; Denies diarrhea Genitourinary Genitourinary ED: Denies dysuria or hematuria Musculoskeletal Musculoskeletal: Denies back pain or neck pain Integumentary Denies abscess or rash Neurologic Neurologic: Denies headache(s), paresthesias or weakness Psychiatric Psychiatric: Denies anxiety or suicidal thoughts EXAM Physical Exam Const Vital Signs: 08/26/24 09:03 08/26/24 09:03 08/26/24 10:03 Temperature 98 F Temperature Source Temporal Pulse Rate 106 H 106 H Pulse Rate [Lying] 100 Pulse Rate [Sitting (for 1 minute prior to obtaining)] 82 Pulse Rate [Standing (for 1 minute prior to obtaining)] 57 L Respiratory Rate 18 18 Blood Pressure 92/76 92/76 Blood Pressure [Lying] 127/68 H Blood Pressure [Sitting (for 1 minute prior to obtaining)] 120/66 Blood Pressure [Standing (for 1 minute prior to obtaining)] 92/43 L Blood Pressure Mean 81 81 Blood Pressure Mean [Lying] 87 Blood Pressure Mean [Sitting (for 1 minute prior to obtaining)] 84 Blood Pressure Mean [Standing (for 1 minute prior to obtaining)] 59 Pulse Ox 100 100 Oxygen Delivery Method Room Air Room Air Positive well nourished and well developed General Appearance ED: well developed and NAD HEENT Reports moist mucous membranes normocephalic and atraumatic Eyes PERRL and EOMs intact bilaterally Neck full ROM and supple Resp normal respiratory effort and clear to auscultation bilaterally Cardio regular rate, regular rhythm and no murmurs Rate: other Other Details: Mild resting tachycardia GI non-tender and non-distended GI Narrative: Refused rectal, denies pain, states he will provide stool specimen Auscultation: normoactive bowel sounds Palpation: soft Back/Spine no CVA tenderness General Back: other FROM Extremity normal to inspection General Extremety ED: Negative for edema, pulses abnormal or tenderness General Extremity: Negative for edema or pulses abnormal Neuro oriented x3, CN's II-XII intact bilaterally and no sensory deficits noted Sensorium / Orientation: awake and alert Motor Exam: strength 5/5 throughout Skin no rashes or lesions noted and no wounds MDM MDM MDM Narrative Medical decision making narrative: Patient is orthostatic. He was given IV fluids, pantoprazole, Zofran, and laterfentanyl when he asked for something for pain. His hemoglobin is 6.8. I consented him for blood, we discussed pros and cons and he consents, as it is indicated and recommended. He is typed and crossed for 2 units. Will need admitted for EGD and further treatment; IV pantoprazole started. Discussed with GI and hospitalist will be admitting him to the ICU. His abdomen is very benign, nontender, so I do not think we need an x-ray or CT to verify that he is not perforated. Lab Data Attestation: I reviewed the patient's lab results. Labs: Laboratory Results - last 24 hr 08/26/24 09:30 WBC 15.5 H RBC 2.04 L Hgb 6.8 L Hct 18.6 L MCV 91.2 MCH 33.3 H MCHC 36.6 H RDW Std Deviation 47.4 H RDW Coeff of Thang 15.5 H Plt Count 258 MPV 11.2 Immature Gran % (Auto) 1.700 H Neut % (Auto) 68.9 Lymph % (Auto) 15.8 L Lyman % (Auto) 10.9 H Eos % (Auto) 2.3 Baso % (Auto) 0.4 Absolute Neuts (auto) 10.7 H Absolute Lymphs (auto) 2.45 Nucleated RBC % 3.0 Differential Comment COMMENT PT 18.1 H INR 1.5 Sodium 121 L Potassium 3.1 L Chloride 82 L Carbon Dioxide 28.0 Anion Gap 11 BUN 40 H Creatinine 1.26 H Estim Creat Clear Calc 83.28 Est GFR (MDRD) Non-Af 70 BUN/Creatinine Ratio 31.5 H Glucose 165 H Calcium 9.2 Total Bilirubin 1.99 H AST 184 H ALT 158 H Alkaline Phosphatase 107 Total Protein 5.7 L Albumin 3.1 L Globulin 2.6 Albumin/Globulin Ratio 1.2 Lipase 138 H Blood Type A POSITIVE Antibody Screen NEGATIVE Crossmatch See Detail Rhythm Strip Rhythm Strip: Sinus Rhythm Rate: 97 Ectopy: None EKG Initial EKG: Attestation: I personally reviewed and interpreted this EKG as follows: Interpretation: Sinus Rhythm and No Acute Injury Pattern Comments: Nml axis & intervals; nml EKG Management Discussion w/another healthcare provider: Hospitalist and Lead Network Architect (GI Friend) Critical Care Time Critical Care Time: Yes Critical care time (excluding procedures): 30-74 minutes (37 min), Including time spent:, Discussing w/Patient &/or Family/Political Organizer, Discussing w/Consultants, Arranging Admission or Transfer and Performing Direct Patient Care at Bedside Discharge Plan Dx/Rx/DC Orders Clinical Impression: ABLA (acute blood loss anemia), UGIB (upper gastrointestinal bleed), Alcohol abuse, Orthostatic hypotension, Acute renal insufficiency Disposition Disposition: Acute Care Hospital [facility] What to do if you have Problems For any increased pain, shortness of breath, bleeding, nausea or vomiting, chestpain, or any unexpected problems, contact your Primary Care Provider. Call [facility] ([phone]) or report to the closest Emergency Room. Call 911 if necessary. 08/26/24 1110 <Electronically signed by Billy Yanez MD> Cosigner Signature (if applicable): CC: No Primary Care Physician ~ Signed [facility] Work Phone: Evaluation note Note Date & Type Note Facility Evaluation note Diagnosis Onset Date Resolution ABLA (acute blood loss anemia) acute August 26, 2024 11:07am Acute renal insufficiency acute August 26, 2024 11:07am Alcohol abuse acute August 26, 2024 11:07am Orthostatic hypotension acute J christie 2024 11:07am UGIB (upper gastrointestinal bleed) acute August 11:07am [facility] Work Phone: History and physical note Note Date & Type Note Facility History and physical note Note Date/Time August 26, 2024 12:00pm [facility] Medical Records Department [address] [place] [address] H&P Exam - Hospitalist 08/26/24 1106 MR#: [id number] Acct: [id number] Name: CATARINO VALDIVIA Rep #:[id number] : 1975 48 From: Mitesh Salcedo PCP: Care Physician,No Primary Status :ADM IN Location: ICU CVICU20 1-1 HPI - General General Date of Admission: 08/26/24 Date of Service: 08/26/24 Chief Complaint: Vomiting blood/melena for 5 days HPI Narrative CATARINO VALDIVIA, is a 48 M with history of chronic alcoholism came to ED with hematemesis and melena for 5 days. Patient stated he started vomiting blood on Thursday morning, reddish to brownish color, projectile [place] 4-5 times per day. Next day started also having black stool 4 to 5-day. He feels crampy abdomen which last for short time in the left upper quadrant. No fever or chills. Denies previous EGD or colonoscopy. Patient drinks alcohol, beer mixed with hard liquor whiskey/from in a binge pattern matter. Restarted drinking as a teenager relapse and in remission, about more than a dozen beer and hard liquor every day. He quit for 2 months and then relapsed to 3 months ago. 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 He also smokes mainly vaping. Denies other substance use In ED, he was hypotensive, BP 92/76 x 2. His baseline blood pressure is on higher side 148/82 TO 161/100. Therefore more than 40 mm's BP drop from baseline. Orthostatic positive in ED. H&H was found 6.8/18.6%. Baseline 14.4/40% 200 stabs uncrossed match. IV fluid normal saline bolus ordered. 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) Atherosclerotic heart disease of [place] coronary artery without angina pectoris History of sudden cardiac arrest successfully resuscitated (08/05/06) Home Medications ?Medication ?Instructions ?Recorded ?Last Taken ?Type aspirin 81 mg tablet,delayed 81 mg PO DAILY #90 tabs 0 05/28/20 Unknown Rx release (Adult Aspirin Regimen) lisinopril 20 mg tablet 20 mg PO DAILY #90 tabs 06/09 Unknown Rx amlodipine 5 mg tablet 5 mg PO DAILY #30 tabs 06/25 Unknown Rx amlodipine 5 mg tablet 5 mg PO DAILY #21 tabs 02/18 Unknown Rx Allergy/AdvReac Type Severity Reaction Status Date / Time No Known Allergies Allergy Verified 08/26/24 09:03 Family History Father Negative for ASCVD Mother Negative for ASCVD Grandfather CVA (cerebral vascular accident) Surgical History History of mandibular surgery History of left heart catheterization (08/06/06) S/P CABG x 2 (08/09/06) Social History Smoking Status: Current every day smoker tobacco type: cigars per week: 5 Electronic Cigarette Use: with nicotine alcohol intake: current alcohol intake frequency: a few times a week substance use type: does not use caffeine: Yes Type: coffee Number of servings: 1 ROS ROS Narrative Constitutional: Reports acute onset fatigue and weakness. No fever. HEENT: Reports systems reviewed and no addt'l complaints, except as documented Respiratory/Chest: Vaping. No acute shortness of breath or respiratory distressor wheezing. CVS: History of CABG. History of cardiac arrest when he was young. Currently no chest pain pressure or tightness Gastrointestinal: As described in HPI Genitourinary: Denies burning urination or new urinary tract symptoms Musculoskeletal: Denies acute joint pain or limited range of motion. No acute injury Neurologic: Denies seizure-like symptoms. Psychiatric: Alcohol dependence skin: No ulcer. No rash Endocrinology: Reports systems reviewed and no addt'l complaints, except as documented Hematologic/Lymphatic: Reports systems reviewed and no addt'l complaints, exceptas documented Rest 14 ROS are negative except as mentioned in HPI Vital Signs Vital Signs Vital Signs: 08/26/24 09:03 08/26/24 09:03 08/26/24 10:03 Temperature 98 F Temperature Source Temporal Pulse Rate 106 H 106 H Pulse Rate [Lying] 100 Pulse Rate [Sitting (for 1 minute prior to obtaining)] 82 Pulse Rate [Standing (for 1 minute prior to obtaining)] 57 L Respiratory Rate 18 18 Blood Pressure 92/76 92/76 Blood Pressure [Lying] 127/68 H Blood Pressure [Sitting (for 1 minute prior to obtaining)] 120/66 Blood Pressure [Standing (for 1 minute prior to obtaining)] 92/43 L Blood Pressure Mean 81 81 Blood Pressure Mean [Lying] 87 Blood Pressure Mean [Sitting (for 1 minute prior to obtaining)] 84 Blood Pressure Mean [Standing (for 1 minute prior to obtaining)] 59 Pulse Ox 100 100 Oxygen Delivery Method Room Air Room Air Weight Weight: 208 lb 8.917 oz Body Mass Index (BMI) 29.0 Physical Exam Narrative General: Alert, Oriented x3, Cooperative. Fatigued HEENT: Atraumatic, PERRLA, EOMI, Normocephalic. Oral: Oral mucosa dry. No Gingival or Mucosal Lesions/ Ulcerations Neck: Supple, No JVD, Negative Carotid Bruits Chest wall/Lungs: Air entry diminished in bilateral lung bases. No crepitation/rhonchi Cardiovascular: CABG scar. Regular rate and rhythm, Normal S1,S2, systolic murmur right second ICS/LLSB Abdomen: Bowel Sounds Present, Soft, Non Tender. Liver enlarged 4 cm below right costal margin. No abdominal distention/ascites. : No dysuria. No renal angle tenderness. No suprapubic tenderness. Extremities: No edema, Capillary Refill Less than 3 Seconds Skin: No rashes, No breakdown Musculoskeletal: No Tenderness to Palpation of Joints or Extremities Neurological: Cranial nerves II-XII grossly intact, DTR 2+/4. No acute focal neurological deficit. Psych/Mental Status: Flat affect Results Lab / Micro Data 08/26/24 09:30 08/26/24 09:30 Labs: Laboratory Results - last 24 hr 08/26/24 09:30: WBC 15.5 H, RBC 2.04 L, Hgb 6.8 L, Hct 18.6 L, MCV 91.2, MCH 33.3 H, MCHC 36.6 H, RDW Std Deviation 47.4 H, RDW Coeff of Thang 15.5 H, Plt Count 258, MPV 11.2, Immature Gran % (Auto) 1.700 H, Neut % (Auto) 68.9, Lymph %(Auto) 15.8 L, Lyman % (Auto) 10.9 H, Eos % (Auto) 2.3, Baso % (Auto) 0.4, Absolute Neuts (auto) 10.7 H, Absolute Lymphs (auto) 2.45, Nucleated RBC % 3.0, Differential Comment COMMENT, PT 18.1 H, INR 1.5, Sodium 121 L, Potassium 3.1 L,Chloride 82 L, Carbon Dioxide 28.0, Anion Gap 11, BUN 40 H, Creatinine 1.26 H, Estim Creat Clear Calc 83.28, Est GFR (MDRD) Non-Af 70, BUN/Creatinine Ratio 31.5 H, Glucose 165 H, Calcium 9.2, Total Bilirubin 1.99 H, AST 184 H, ALT 158 H, Alkaline Phosphatase 107, Total Protein 5.7 L, Albumin 3.1 L, Globulin 2.6, Albumin/Globulin Ratio 1.2, Lipase 138 H, Blood Type A POSITIVE, Antibody ScreenNEGATIVE Rhythm Strip Rhythm Strip: Sinus Rhythm Rate: 97 Ectopy: None Assessment & Plan Assessment/Plan (1) UGIB (upper gastrointestinal bleed): (2) ABLA (acute blood loss anemia): (3) Orthostatic hypotension: PLAN: Plan This 48-year-old gentleman being admitted for symptomatic severe anemia from acute upper GI bleed 1. Acute severe blood loss anemia due to upper GI bleed suspected variceal bleed: Patient is being admitted in ICU. IV fluid normal saline 2 L bolus/fluidrestriction. Type and crossmatch 2 units of PRBC and transfuse 1 unit now. Posttransfusion H&H every 6 hourly. Patient is started on IV PPI every 12 hourly bolus, octreotide drip and IV ceftriaxone. GI consulted. Never had EGD or colonoscopy. Baseline normal saline +40 mEq KCl after bolus completion for 1L. 2. Orthostatic hypotension/dizziness from hypovolemia: Patient is symptomatic with dizziness on orthostatic vitals. volume and blood resuscitation. 3. Chronic alcoholic hepatitis: Patient transaminases have been elevated in February 2024. Total bilirubin was 4.3, improved to 1.99. ALP normal. INR 1.5 elevated, mild coagulopathy. RUQ ultrasound in September 2020 shows liver normal but enlarged 8.9 cm. Pancreas appeared normal. Small 5 mm GB polyp. No stone. CBD 3.3 mm. Repeat RUQ sonogram 4. Hereditary hemochromatosis: Last follow-up with Dr. Adams in October 2020. Ferritin 6 7 177 in August 29. Goal ferritin less than 150 to prevent cirrhosis. 5. Atherosclerotic heart disease status post CABG, chronic HFpEF, mild valvularheart disease, hypertension and dyslipidemia: Had double vessel CABG at the age of 12. No cardiology follow-up since June 2020. 2D echo June 2020 Grossly normal left ventricular size, wall motion, and systolic function. The estimated ejection fraction is 55 %. Trivial mitral valve insufficiency. Trivial tricuspid valve insufficiency. Trivial pulmonic valve insufficiency. Unable to estimate RV systolic pressure/pulmonary artery pressure due to technically difficult study. Transmitral doppler flow suggestive of impaired relaxation of left ventricle Living will/advanced directive/end of life care: Patient does not have living will or advanced directive. His next of kin is his fianc?e. After discussion of benefits/risks procedures involved with full code, DNR CC arrest and DNR CC,the patient opted for full code. Patient does want artificial life support including intubation, tube feed, ventilator and/chest compression, central venous catheter, vasopressor and DC shock if needed Total time spent in [id number] encounter in discussion of advanced directive 17 minutes. Laboratory Results 08/26/24 09:30: WBC 15.5 H, RBC 2.04 L, Hgb 6.8 L, Hct 18.6 L, MCV 91.2, MCH 33.3 H, MCHC 36.6 H, RDW Std Deviation 47.4 H, RDW Coeff of Thang 15.5 H, Plt Count 258, MPV 11.2, Immature Gran % (Auto) 1.700 H, Neut % (Auto) 68.9, Lymph %(Auto) 15.8 L, Lyman % (Auto) 10.9 H, Eos % (Auto) 2.3, Baso % (Auto) 0.4, Absolute Neuts (auto) 10.7 H, Absolute Lymphs (auto) 2.45, Nucleated RBC % 3.0, Differential Comment COMMENT, PT 18.1 H, INR 1.5, Sodium 121 L, Potassium 3.1 L,Chloride 82 L, Carbon Dioxide 28.0, Anion Gap 11, BUN 40 H, Creatinine 1.26 H, Estim Creat Clear Calc 83.28, Est GFR (MDRD) Non-Af 70, BUN/Creatinine Ratio 31.5 H, Glucose 165 H, Calcium 9.2, Total Bilirubin 1.99 H, AST 184 H, ALT 158 H, Alkaline Phosphatase 107, Total Protein 5.7 L, Albumin 3.1 L, Globulin 2.6, Albumin/Globulin Ratio 1.2, Lipase 138 H, Blood Type A POSITIVE, Antibody ScreenNEGATIVE, Crossmatch See Detail Laboratory Results 08/26/24 09:30: WBC 15.5 H, RBC 2.04 L, Hgb 6.8 L, Hct 18.6 L, MCV 91.2, MCH 33.3 H, MCHC 36.6 H, RDW Std Deviation 47.4 H, RDW Coeff of Thang 15.5 H, Plt Count 258, MPV 11.2, Immature Gran % (Auto) 1.700 H, Neut % (Auto) 68.9, Lymph %(Auto) 15.8 L, Lyman % (Auto) 10.9 H, Eos % (Auto) 2.3, Baso % (Auto) 0.4, Absolute Neuts (auto) 10.7 H, Absolute Lymphs (auto) 2.45, Nucleated RBC % 3.0, Differential Comment COMMENT, PT 18.1 H, INR 1.5, Sodium 121 L, Potassium 3.1 L, Chloride 82 L, Carbon Dioxide 28.0, Anion Gap 11,BUN 40 H, Creatinine 1.26 H, Estim Creat Clear Calc 83.28, Est GFR (MDRD) Non-Af70, BUN/Creatinine Ratio 31.5 H, Glucose 165 H, Calcium 9.2, Total Bilirubin 1.99 H, AST 184 H, ALT 158 H, Alkaline Phosphatase 107, Total Protein 5.7 L, Albumin 3.1 L, Globulin 2.6, Albumin/Globulin Ratio 1.2, Lipase 138 H, Blood TypeA POSITIVE, Antibody Screen NEGATIVE Charges/Coding Visit Charges Inpatient E&M: 97512 Init Hosp L3 Procedures Hospitalists Procedures: 70346 Advncd Care Plan 30 Min 08/26/24 1159 <Electronically signed by Mitesh White MD> Cosigner Signature (if applicable): CC: Dr. Mitesh White MD; No Primary Care Physician~ Signed ADDENDUM by Dr. 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 Mitesh White MD; No Primary Care Physician ~* Signed [facility] Work Phone: Reason for referral (narrative) Note Date & Type Note Facility Reason for referral (narrative) No reason for referral information available [facility] Work Phone: Summary Purpose Family History Relationship Condition Age at Onset Recorded Date/T mell father Unknown mother Unknown grandfather Cerebrovascular accident (CVA) Unknown Advance Directives Advance Directive Response Recorded Date/ Time Do you have a Healthcare Power of Director Of Software Engineering? No August 26, 2024 12:28pm Chief Complaint and Reason for Visit Chief Complaint Admit Date GI BLEED WITH HYPOTENSION, SYMTOMATIC Ju ly 2024 11:07am Reason for Visit Admit Date ABLA (acute blood loss anemia) August 11:07am Acute renal insufficiency August 26 11:07am Alcohol abuse August 26, 2024 11:0 7am Orthostatic hypotension August 26, 2024 11:07am UGIB (upper gastrointestinal bleed) August 26, 2024 11:07am Additional Source Comments (unrecognized sect ion and content) No Status Records FoundNo Status Records Found INFORMATION SOURCE (unrecogn ized section and content) DATE CREATED AUTHOR 03/18/2021 [facility] DATE CREATED AUTHOR 'S ORGANIZ ATION 05/20/2024 [facility] Care Teams (unrecognized sec tion and content) Team Status: Active Member Role/Relationship Status Dates No Primary Care Physician Primary Care Provider Active Team Status: Active Member Role/Relationship Status Dates No Primary Care Physician Primary Care Provider Active Start: August 26, 2024 Dr. Billy Yanez MD Emergency Provider Active Start: August 26, 2024 Dr. Mitesh White MD Admit Provider Active Sta rt: August 26, 2024 Dr. Mitesh White MD Attending Provider Active Start: August 26, 2024 Dr. Mitesh White MD Other Provider Active Sta rt: August 26, 2024 Goals (unrecognized section and content) Goals may be documented in a n alternate section FOR RECORDS PERTAINING TO PATIENTS WHO ARE OR HAVE BEEN ENROLLED IN A CHEMICAL DEPENDENCY/SUBSTANCEABUSE PROGRAM, SOME INFORMATION MAY BE OMITTED. This clinical summary was aggregated from multiple sources. Caution should be exercised in using it in the provision of clinical care. This summary normalizes information from multiple sources, and as a consequence, information in this document may materially change the coding, format and clinical context of patient data. In addition, data may be omitted in some cases. CLINICAL DECISIONS SHOULD BE BASED ON THE PRIMARY CLINICAL RECORDS. [employer] [facility]. provides no warranty or guarantee of the accuracy or completeness of information in this document.
[2024-08-26 16:17] LABS: Hematocrit 22.5 % (40-54); Hemoglobin 8.1 g/dL (13.0-16.5)
[2024-08-26 17:16] LABS: Alcohol, Blood (Medical)-Serum < 10.1 mg/dL (<=10.0)
[2024-08-26] MEDS: Lactated Ringers 1,000 ML 15 ML IV (17:19)
--- NOTE | 2024-08-26 17:31 | CON.PCM.GI_ITS ---
HPI Consult Data Date of Consult: 08/26/24 HPI Narrative Reason for Consultation: Upper GI bleed HPI Narrative: KAYLEE VALDIVIA, is a 48-year-old male presents with nausea and vomiting for the past 3 to 4 days that has mostly been either hematemesis bright red blood or dark red blood as well as dark red or black stools. He has a past medical history of CAD s/p CABG in [facility] about 15 yrs ago was found to have abnormal liver function. Ferritin done on 09/03/2020 was [id number]. 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 He admitted to some mild bilateral flank pain off and on feels more like muscle pain, no other central abdominal pains. He has been feeling lightheaded, tired and weak, no syncope. He did admit to some dyspnea with exertion or after vomiting but no chest pain. He says that he used to be a heavy alcohol drinker but stopped years ago, but he had some alcohol on 12 August 2 weeks ago, and then had a couple days without alcohol and then had a golf trip and has been drinking heavily since, about 12 beers and 5 or 6 shots of hard liquor per day. 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) Atherosclerotic heart disease of [place] coronary artery without angina pectoris History of sudden cardiac arrest successfully resuscitated (08/05/06) Home Medications ?Medication ?Instructions ?Recorded ?Last Taken ?Type aspirin 81 mg tablet,delayed 81 mg PO DAILY #90 tabs 0 05/28/20 Unknown Rx release (Adult Aspirin Regimen) lisinopril 20 mg tablet 20 mg PO DAILY #90 tabs 06/09 Unknown Rx amlodipine 5 mg tablet 5 mg PO DAILY #30 tabs 06/25 Unknown Rx amlodipine 5 mg tablet 5 mg PO DAILY #21 tabs 02/18 Unknown Rx Allergy/AdvReac Type Severity Reaction Status Date / Time No Known Allergies Allergy Verified 08/26/24 09:03 Family History Father Negative for ASCVD Mother Negative for ASCVD Grandfather CVA (cerebral vascular accident) Surgical History History of mandibular surgery History of left heart catheterization (08/06/06) S/P CABG x 2 (08/09/06) Social History Smoking Status: Current every day smoker tobacco type: cigars per week: 5 Electronic Cigarette Use: with nicotine alcohol intake: current alcohol intake frequency: a few times a week substance use type: does not use caffeine: Yes Type: coffee Number of servings: 1 ROS Constitutional Constitutional: Denies fatigue, fever(s), poor appetite, weight gain or weight loss Gastrointestinal Gastrointestinal: Denies belching, bloating, change in bowel habits, change in stool character, chewing difficulty, coffee ground emesis, constipation, cramping, diarrhea, dyspepsia, dysphagia, early satiety, excessive flatus, fecal incontinence, heartburn, hematemesis, hematochezia, hemorrhoids, loose stools, melena, nausea, odynophagia, rectal bleeding, tenesmus, vomiting or weight changes Physical Exam Const alert, oriented x3, no apparent distress and healthy appearing General Appearance: cooperative GI normal to inspection, nondistended, normoactive bowel sounds, soft to palpation, non-tender and non-distended Percussion: normal to percussion Rectal Exam: deferred Lab / Micro Data 08/26/24 15:50 08/26/24 09:30 Labs: Laboratory Results - last 24 hr 08/26/24 09:30: WBC 15.5 H, RBC 2.04 L, Hgb 6.8 L, Hct 18.6 L, MCV 91.2, MCH 33.3 H, MCHC 36.6 H, RDW Std Deviation 47.4 H, RDW Coeff of Thang 15.5 H, Plt Count 258, MPV 11.2, Immature Gran % (Auto) 1.700 H, Neut % (Auto) 68.9, Lymph % (Auto) 15.8 L, [place] % (Auto) 10.9 H, Eos % (Auto) 2.3, Baso % (Auto) 0.4, A bsolute Neuts (auto) 10.7 H, Absolute Lymphs (auto) 2.45, Nucleated RBC % 3.0, Differential Comment COMMENT, PT 18.1 H, INR 1.5, Sodium 121 L, Potassium 3.1 L, Chloride 82 L, Carbon Dioxide 28.0, Anion Gap 11, BUN 40 H, Creatinine 1.26 H, Estim Creat Clear Calc 83.28, Est GFR (MDRD) Non-Af 70, BUN/Creatinine Ratio 31.5 H, Glucose 165 H, Calcium 9.2, Total Bilirubin 1.99 H, Direct Bilirubin 1.12 H, AST 184 H, ALT 158 H, Alkaline Phosphatase 107, Total Protein 5.7 L, A lbumin 3.1 L, Globulin 2.6, Albumin/Globulin Ratio 1.2, Lipase 138 H, Blood Type A POSITIVE, Antibody Screen NEGATIVE, Crossmatch See Detail 08/26/24 15:50: Hgb 8.1 L, Hct 22.5 L, Ethyl Alcohol < 10.1 Rhythm Strip Rhythm Strip: Sinus Rhythm Rate: 97 Ectopy: None Imaging Radiology Impression Abdomen Ultrasound 08/26/24 11:54 IMPRESSION: 1. Apparent lobulation of the right kidney. Underlying mass can not be excluded. Further evaluation with CT or MRI of the abdomen with and without contrast is recommended. 2. Coarse appearing liver, likely secondary to underlying hepatocellular disease. Clinical correlation is recommended. 3. Cholelithiasis and gallbladder polyp. Findings are equivocal for acute cholecystitis. Further evaluation with HIDA scan may be beneficial. Reading Location: [facility] Assessment & Plan Assessment/Plan (1) UGIB (upper gastrointestinal bleed): PLAN: 48 gentleman with history of hereditary hemochromatosis, sudden cardiac arrest in 2006, CAD status post CABG and history of alcohol abuse presents with signs and symptoms of upper GI bleed. He will undergo endoscopy. He was explained alternatives, risk and benefits could not withstand bleeding, pressure, subs, perforation, need for charge and . He will have an ASA of 3. Charges/Coding Visit Charges Inpatient E&M: 43230 Init Hosp L3
--- NOTE | 2024-08-26 17:39 | PCM.PRE.AN2 ---
ASA Classification* ASA Classification ASA Classification: 3 and E Assessment & Plan Anesthesia* Anesthesia Assessment Anesthesia Assessment: Discussed sedation and/or anesthesia options, risks, benefits, and alternatives with patient/parents/legal guardian/POA. Questions invited. The patient/parents/legal guardian/POA seems to understand and agrees to proceed with anesthesia plan. Reviewed the physical assessment, medical history, allergy history and patient home medications list prior to surgery/procedure/anesthetic and documented any changes. Performed airway and anesthesia risk assessments. Anesthesia Type Anesthesia Type: MAC History Source History Obtained from:: Patient and Chart Anesthesia Focused Assessment* Temperature: 99.5 F Pulse Rate: 94 Blood Pressure: 131/69 Respiratory Rate: 18 Pulse Ox: 100 Oxygen Delivery Method: Room Air Airway Assessment Mouth opens: >3 cm Mallampati Score: II Teeth Condition: Chipped/Broken (Poor dentition.) and Missing (one missing tooth) Neck Range of motion (ROM): Full ROM Labs Anesthesia Preop lab: CBC WBC 15.5 K/mm3 (4.4-11.0) H 08/26/24 09:08/26/24 RBC 2.04 M/mm3 (4.6-6.2) L 08/26/24 09:30 08/26/24 Hgb 8.1 g/dL (13.0-16.5) L 08/26/24 15:50 08/26/24 Hct 22.5 % (40-54) L 08/26/24 15:50 08/26/24 Plt Count 258 K/mm3 (150-450) 08/26/24 09:30 08/26/24 CHEMISTRY Potassium 3.1 mmol/L (3.3-5.1) L 08/26/24 09:30 08/26/24 Sodium 121 mmol/L (133-145) L 08/26/24 09:30 08/26/24 BUN 40 mg/dL (4-19) H 08/26/24 09:30 08/26/24 Creatinine 1.26 mg/dL (0.70-1.20) H 08/26/24 09:30 08/26/24 Glucose 165 mg/dL (70-99) H 08/26/24 09:30 08/26/24 COAG PT 18.1 SECONDS (11.7-14.9) H 08/26/24 09:30 08/26/24 Pre-Assessment Diagnosis/Proposed Procedure Planned Operative Procedure(s): EGD Anesthesia History 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 When Was Last Pacemaker Check QUESTION #4 FULL TEXT: You/Your Family Experience fever (hyperthermia) with Anesthesia Last Oral Intake Last Oral intake: Last Oral Intake NPO since Meds taken in AM with sips of water? Meds patient instructed to take am of surgery Any additional information?: Yes NPO since: 00:00 PONV PONV - magnetic prospecting supervisor: PONV - magnetic prospecting supervisor Female HX of Motion Sickness HX of N/V After Surgery Non-Smoker Duration of Surgery greater than 60 minutes Number of Risk Factors PONV Score Height & Weight Height & Weight: Anesthesia: Height & Weight Height 5 ft 11 in 08/26/24 12:28 Weight: 94.12 kg 08/26/24 12:28 Body Mass Index (BMI) 28.9 08/26/24 12:28 Respiratory Assessment Respiratory Assessment - magnetic prospecting supervisor: Respiratory Tract Infection Hx - magnetic prospecting supervisor Hx Respiratory Tract Infection Any additional information?: Yes Hx Respiratory Tract Infection: No STOP Sleep Apnea STOP Sleep Apnea - magnetic prospecting supervisor: STOP Sleep Apnea - magnetic prospecting supervisor Hx Hypertension Yes 08/26/24 12:28 Hx Sleep Apnea No 08/26/24 12:28 CPAP BIPAP Do you snore loudly (louder No 08/26/24 12:28 than talking or can be heard Do you often feel tired/ No 08/26/24 12:28 fatigued/ sleepy during daytime? Has anyone observed you stop No 08/26/24 12:28 breathing during sleep? STOP Results Negative 08/26/24 12:28 QUESTION #5 FULL TEXT : Do you snore loudly (louder than talking or can be heard through closed doors)? 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 Specify any problems Hx of Preganancy in last 3 N/A 08/26/24 12:28 Months Nurse Filling Out Transfusion JINDERMUH 08/26/24 12:28 & Questions: Date: 08/26/24 08/26/24 12:28 Time: 12:38 08/26/24 12:28 Patient unable to answer at this time (ie. confused, unrespo /Reproduction History /Reproductive History - magnetic prospecting supervisor: /Reproductive Hx- magnetic prospecting supervisor Hx Now Gestational Age (in weeks): EDC: Hx Hx Para Hx Section SAB Active Medications Active Medications: Current Medications Generic Name Dose Route Start Last Admin Trade Name Freq PRN Reason Stop Dose Admin Acetaminophen 650 mg 08/26/24 12:27 Acetaminophen 325 Mg Tablet PO Q6H PRN PRN Pain 1-10 Or Fever>100.7 Ceftriaxone Sodium 1 gm in 50 mls @ 100 mls/hr 08/26/24 11:17 08/26/24 16:21 Rocephin IV 09/01/24 10:29 Infused Q24 ALISSA Infusion Octreotide Acetate 0.5 mg/ 100 mls @ 10 mls/hr 08/26/24 12:00 08/26/24 13:07 Dextrose CONT INF 08/29/24 12:01 50 mcg/hr .Q10H ALISSA 10 mls/hr Administration 50 MCG/HR Pantoprazole Sodium 40 mg/ 100 mls @ 300 mls/hr 08/26/24 18:00 Sodium Chloride IV Q12 ALISSA Potassium Chloride/Sodium Chloride 40 meq in 1,000 mls @ 100 mls/hr 08/26/24 14:15 08/26/24 15:19 IV 08/27/24 00:14 100 mls/hr .Q10H ALISSA Administration Lactated Ringer's 1,000 mls @ 15 mls/hr 08/26/24 17:30 08/26/24 17:19 IV 15 mls/hr .Q48H ALISSA Administration Lorazepam 2 mg 08/26/24 11:45 Lorazepam 2 Mg/Ml Wch Syringe IV UD PRN CIWA score >/=15. Protocol Lorazepam 2 mg 08/26/24 11:45 Lorazepam 2 Mg/Ml Wch Syringe IV Q2H PRN PRN CIWA score > 8 but <15 Protocol Lorazepam 2 mg 08/26/24 11:45 Lorazepam 1 Mg Tablet PO UD PRN CIWA score >/=15. Protocol Lorazepam 2 mg 08/26/24 11:45 Lorazepam 1 Mg Tablet PO Q2H PRN PRN CIWA score > 8 but <15 Protocol Oxycodone HCl 2.5 - 5 mg 08/26/24 12:27 Oxycodone 5 Mg Tablet PO Q4H PRN PRN Pain Score 4-10 Prochlorperazine Edisylate 5 mg 08/26/24 12:27 Prochlorperazine 10 Mg/2 Ml Vial IV Q4H PRN PRN Breakthrough Nausea/Vomiting Sodium Chloride 10 - 40 ml 08/26/24 12:30 0.9% Saline Lock 10 Ml Syringe IV UD PRN SALINE FLUSH PFSH Medical History ETOH abuse Nonrheumatic tricuspid valve regurgitation Hyperlipidemia History of inferior wall myocardial infarction (08/05/06) Atherosclerotic heart disease of [place] coronary artery without angina pectoris History of sudden cardiac arrest successfully resuscitated (08/05/06) Home Medications ?Medication ?Instructions ?Recorded ?Last Taken ?Type aspirin 81 mg tablet,delayed 81 mg PO DAILY #90 tabs 05/28/20 Unknown Rx release (Adult Aspirin Regimen) lisinopril 20 mg tablet 20 mg PO DAILY #90 tabs 06/18/20 Unknown Rx amlodipine 5 mg tablet 5 mg PO DAILY #30 tabs 06/25/20 Unknown Rx amlodipine 5 mg tablet 5 mg PO DAILY #21 tabs 02/19/24 Unknown Rx Allergy/AdvReac Type Severity Reaction Status Date / Time No Known Allergies Allergy Verified 08/26/24 09:03 Family History Father Negative for ASCVD Mother Negative for ASCVD Grandfather CVA (cerebral vascular accident) Surgical History History of mandibular surgery History of left heart catheterization (08/06/06) S/P CABG x 2 (08/09/06) Social History Smoking Status: Current every day smoker tobacco type: cigars per week: 5 Electronic Cigarette Use: with nicotine alcohol intake: current alcohol intake frequency: a few times a week substance use type: does not use caffeine: Yes Type: coffee Number of servings: 1 Review of Systems (Anesthesia) ROS Narrative System reviewed and no additional complaints, except as documented.
--- NOTE | 2024-08-26 18:14 | PCM.POST.ANE ---
Anesthesia: Postop Eval I Current Vital Signs Temperature: 98.1 F Pulse Rate: 106 Blood Pressure: 119/66 Respiratory Rate: 17 Pulse Ox: 100 Oxygen Delivery Method: Room Air Assessment Airway patent: Yes Spontaneous unlabored respirations: Yes Mental status: Awake and Calm nausea: No Vomiting: No Anesthesia Complication: No Fluid Hydration Crystalloid volume administer (ml): 400 Total IV fluid infused: 400 Progress Note Anesthesia document: Postop Eval 1 completed: Yes
--- NOTE | 2024-08-26 18:15 | OP.CCLET_ITS ---
08/26/2024 No Primary Care Physician Re : Upper GI endoscopy procedure for Catarino Myersn Dear Care Physician This procedure was performed on Monday, August 26, 2024. My impressions and recommendations are as follows: Impressions : - Large (> 5 mm) esophageal varices. - Portal hypertensive gastropathy. 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 Treated with a heater probe. - No specimens collected. Recommendations : - [facility]. - Advance diet as tolerated. - Continue present medications. My findings are described in the full procedure note, which is enclosed. If I can be of further assistance, please feel free to contact me at . Sincerely, Todd Vail, 08/26/2024 6:14:44 PM This report has been signed electronically.
--- NOTE | 2024-08-26 18:15 | OP.EGD_ITS ---
Patient Name: Catarino Reyes Procedure Date: 08/26/2024 5:35 PM Date of : 1975 Age: 48 Procedure: Upper GI endoscopy Indications: Coffee-ground emesis, Cirrhosis with suspected esophageal varices Providers: Todd Vail DO Medicines: Monitored Anesthesia Care Patient Profile: This is a 48 year old male. Refer to note in patient chart for documentation of history and physical. Patient has symptoms of acute vomiting. Complications: No immediate complications. Procedure: Pre-Anesthesia Assessment: - Prior to the procedure, a History and Physical was performed, and patient medications and allergies were reviewed. The patient is competent. The risks and benefits of the procedure and the sedation options and risks were discussed with the patient. All questions were answered and informed consent was obtained. Patient identification and proposed procedure were verified by the physician in the pre-procedure area. Mental Status Examination: alert and oriented. Airway Examination: normal oropharyngeal airway and neck mobility. Respiratory Examination: clear to auscultation. CV Examination: normal. Prophylactic Antibiotics: The patient does not require prophylactic antibiotics. Prior Anticoagulants: The patient has taken no anticoagulant or antiplatelet agents except for NSAID medication. ASA Grade Assessment: II - A patient with mild systemic disease. After reviewing the risks and benefits, the patient was deemed in satisfactory condition to undergo the procedure. The anesthesia plan was to use monitored anesthesia care (MAC). Immediately prior to administration of medications, the patient was re-assessed for adequacy to receive sedatives. The heart rate, respiratory rate, oxygen saturations, blood pressure, adequacy of pulmonary ventilation, and response to care were monitored throughout the procedure. The physical status of the patient was re-assessed after the procedure. After obtaining informed consent, the endoscope was passed under direct vision. Throughout the procedure, the patient's blood pressure, pulse, and oxygen saturations were monitored continuously. The Endoscope was introduced through the mouth, and advanced to the fourth part of the duodenum. Small bowel enteroscopy was deemed necessary. The upper GI endoscopy was accomplished without difficulty. The patient tolerated the procedure well. Scope In: 5:59:18 PM Scope Out: 6:04:01 PM Total Procedure Duration Time 0 hours 4 minutes 43 seconds Findings: Large (> 5 mm) varices were found in the entire esophagus. Moderate portal hypertensive gastropathy was found in the entire examined stomach. Multiple 5 mm angiodysplastic lesions with bleeding were found in the duodenal bulb, in the first portion of the duodenum and in the third portion of the duodenum. Coagulation for hemostasis using heater probe was successful. Estimated blood loss was minimal. Impression: - Large (> 5 mm) esophageal varices. - Portal hypertensive gastropathy. 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 Treated with a heater probe. - No specimens collected. Recommendation: - [facility]. - Advance diet as tolerated. - Continue present medications. Procedure Code(s): --- Professional --- 70320, Small intestinal endoscopy, enteroscopy beyond second portion of duodenum, not including ileum; with control of bleeding (eg, injection, bipolar cautery, unipolar cautery, laser, heater probe, stapler, plasma dbas) CPT copyright 2021 [employer]. All rights reserved. The codes documented in this report are preliminary and upon associate java developer review may be revised to meet current compliance requirements. Todd Vail DO 08/26/2024 6:14:44 PM This report has been signed electronically. Number of Addenda: 0 Note Initiated On: 08/26/2024 5:35 PM
--- NOTE | 2024-08-26 19:16 | PCM.POSTANE2 ---
Anesthesia Postop Eval I Sum Postop Eval Completion status Anesthesia document: Postop Eval 1 completed: Yes Anesthesia Postop Eval I Summary Anesthesia Postop Eval I Summary: Anesthesia Postop Eval I: Assessment Summary Airway patent Yes 08/26/24 18:16 Spontaneous unlabored Yes 08/26/24 18:16 respirations Mental status Awake,Calm 08/26/24 18:16 nausea No 08/26/24 18:16 Vomiting No 08/26/24 18:16 Anesthesia Postop Eval I: Fluid Summary Crystalloid volume administer 400 08/26/24 18:16 (ml) Colloids volume administered ( ml) Blood Product volume administered (ml) Total IV fluid infused 400 08/26/24 18:16 Anesthesia Postop Eval I: Summary Notes Anesthesia Complication No 08/26/24 18:16 Anesthesia Complication Comment: Post-operative progress note Anesthesia: Postop Eval II Evaluation Mental status: Awake and Calm Pain Level: 0 nausea: No Vomiting: No Complications Anesthesia Complication: No
[2024-08-26] MEDS: 0.9% Saline Lock 10 ML Syringe IV (19:47)
[2024-08-26 21:28] LABS: Hematocrit 23.4 % (40-54); Hemoglobin 8.4 g/dL (13.0-16.5)
[2024-08-27] VITALS (16 sets, daily range): BP systolic 96–139; BP diastolic 49–92; PULSE 79–94; RESP 12–19; TEMP 36.6–37.2; O2SAT 95–100; BMI 29.3
[2024-08-27 03:01] LABS: Hematocrit 22.8 % (40-54); Hemoglobin 8.2 g/dL (13.0-16.5)
[2024-08-27 07:00] LABS: Hematocrit 24.7 % (40-54); Hemoglobin 8.7 g/dL (13.0-16.5); Immature Granulocytes Count 0.230 X10^3/uL (0.0-0.0); Mean Corp Hgb Conc 35.2 g/dL (32-36); Mean Corpuscular Volume 91.5 fL (80-94); Mean Platelet Vol. 10.7 fl (6.2-12.0); NRBC Flagged by Analyzer 2.5 % (0-5); Platelet Count 209 K/mm3 (150-450); RBC Distribution Width CV 17.5 % (11.6-14.6); RBC Distribution Width SD 51.4 fl (35.1-43.9); Red Blood Count 2.70 M/mm3 (4.6-6.2); White Blood Count 11.8 K/mm3 (4.4-11.0)
--- NOTE | 2024-08-27 07:24 | PN.HOSP_ITS ---
Reason for Visit Chief Complaint: Vomiting blood/melena for 5 days Objective Data Objective Data Vital Signs: Vital Signs Temp Pulse Resp BP Pulse Ox O2 Del Method 98.0 F 94 14 99/65 96 Room Air 08/27/24 00:00 08/27/24 06:00 08/27/24 06:00 08/27/24 06:00 08/27/24 06:00 08/27/24 06:00 Oxygen Delivery Method Room Air Weight: 209 lb 10.554 oz Body Mass Index (BMI) 29.3 Intake & Output: Intake and Output for Last 24 Hours 08/25/24 08/26/24 08/27/24 23:59 23:59 23:59 Intake Total 3469.58 / 3469.58 1000 / 1000 Output Total 1450 / 1450 1095 / 1095 Balance 58 -95 / -95 Lab / Micro Data 08/27/24 06:34 08/27/24 06:34 Labs: Laboratory Results - last 24 hr 08/26/24 09:30: WBC 15.5 H, RBC 2.04 L, Hgb 6.8 L, Hct 18.6 L, MCV 91.2, MCH 33.3 H, MCHC 36.6 H, RDW Std Deviation 47.4 H, RDW Coeff of Thang 15.5 H, Plt Count 258, MPV 11.2, Immature Gran % (Auto) 1.700 H, Neut % (Auto) 68.9, Lymph % (Auto) 15.8 L, [place] % (Auto) 10.9 H, Eos % (Auto) 2.3, Baso % (Auto) 0.4, A bsolute Neuts (auto) 10.7 H, Absolute Lymphs (auto) 2.45, Nucleated RBC % 3.0, Differential Comment COMMENT, PT 18.1 H, INR 1.5, Sodium 121 L, Potassium 3.1 L, Chloride 82 L, Carbon Dioxide 28.0, Anion Gap 11, BUN 40 H, Creatinine 1.26 H, Estim Creat Clear Calc 83.28, Est GFR (MDRD) Non-Af 70, BUN/Creatinine Ratio 31.5 H, Glucose 165 H, Calcium 9.2, Total Bilirubin 1.99 H, Direct Bilirubin 1.12 H, AST 184 H, ALT 158 H, Alkaline Phosphatase 107, Total Protein 5.7 L, A lbumin 3.1 L, Globulin 2.6, Albumin/Globulin Ratio 1.2, Lipase 138 H, Blood Type A POSITIVE, Antibody Screen NEGATIVE, Crossmatch See Detail 08/26/24 15:50: Hgb 8.1 L, Hct 22.5 L, Ethyl Alcohol < 10.1 08/26/24 21:13: Hgb 8.4 L, Hct 23.4 L 08/27/24 02:50: Hgb 8.2 L, Hct 22.8 L 08/27/24 06:34: WBC 11.8 H, RBC 2.70 L, Hgb 8.7 L, Hct 24.7 L, MCV 91.5, MCH 32.2 H, MCHC 35.2, RDW Std Deviation 51.4 H, RDW Coeff of Thang 17.5 H, Plt Count 209, MPV 10.7, Immature Gran % (Auto) 2.000 H, Neut % (Auto) 66.3, Lymph % (Auto) 17.6 L, [place] % (Auto) 10.5 H, Eos % (Auto) 3.1, Baso % (Auto) 0.5, A bsolute Neuts (auto) 7.8 H, Absolute Lymphs (auto) 2.07, Nucleated RBC % 2.5, PT Cancelled, INR Cancelled Radiography Diagnostic Testing: Radiology Impression Abdomen Ultrasound 08/26/24 11:54 IMPRESSION: 1. Apparent lobulation of the right kidney. Underlying mass can not be excluded. Further evaluation with CT or MRI of the abdomen with and without contrast is recommended. 2. Coarse appearing liver, likely secondary to underlying hepatocellular disease. Clinical correlation is recommended. 3. Cholelithiasis and gallbladder polyp. Findings are equivocal for acute cholecystitis. Further evaluation with HIDA scan may be beneficial. Reading Location: [facility] Rhythm Strip Rhythm Strip: Sinus Rhythm Rate: 97 Ectopy: None Physical Exam Narrative Seen and examined Patient does not have abdominal pain. He is on soft diet. EGD finding discussed with the patient. He wants to go home but advised to stay General: Alert, Oriented x3, Cooperative. Fatigued HEENT: Atraumatic, PERRLA, EOMI, Normocephalic. Oral: Oral mucosa dry. No Gingival or Mucosal Lesions/ Ulcerations Neck: Supple, No JVD, Negative Carotid Bruits Chest wall/Lungs: Air entry diminished in bilateral lung bases. No crepitation/rhonchi Cardiovascular: CABG scar. Regular rate and rhythm, Normal S1,S2, systolic murmur right second ICS/LLSB Abdomen: Bowel Sounds Present, Soft, Non Tender. Liver enlarged 4 cm below right costal margin. : No dysuria. No renal angle tenderness. No suprapubic tenderness. Extremities: No edema, Capillary Refill Less than 3 Seconds Skin: No rashes, No breakdown Musculoskeletal: No Tenderness to Palpation of Joints or Extremities Neurological: Cranial nerves II-XII grossly intact, DTR 2+/4. No acute focal neurological deficit. Psych/Mental Status: Flat affect Assessment & Plan Assessment/Plan (1) UGIB (upper gastrointestinal bleed): (2) ABLA (acute blood loss anemia): (3) Orthostatic hypotension: PLAN: Plan This 48-year-old gentleman being admitted for symptomatic severe anemia from acute upper GI bleed 1. Acute severe blood loss anemia due to upper GI bleed suspected variceal bleed: Patient is being admitted in ICU. IV fluid normal saline 2 L bolus/fluid restriction. Type and crossmatch 2 units of PRBC and transfuse 1 unit now. Posttransfusion H&H every 6 hourly. Patient is started on IV PPI every 12 hourly bolus, octreotide drip and IV ceftriaxone. GI consulted. Never had EGD or colonoscopy. Baseline normal saline +40 mEq KCl after bolus completion for 1 L. EGD 08/27/2024 Impressions : - Large (> 5 mm) esophageal varices. - Portal hypertensive gastropathy. 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 Treated with a heater probe. - No specimens collected. 08/27: Patient is being transferred to PCU. Needs H&H monitoring for rebleed. Continue IV PPI and IV ceftriaxone. Octreotide drip discontinued. Diet advanced to soft diet 2. Orthostatic hypotension/dizziness from hypovolemia: Patient is symptomatic with dizziness on orthostatic vitals. volume and blood resuscitation. Severe hyponatremia probably chronic: Sodium was improved from 121-131 because patient required massive volume resuscitation because of hypotension. IV fluid D5 ordered 3. Chronic alcoholic hepatitis: Patient transaminases have been elevated in February 2024. Total bilirubin was 4.3, improved to 1.99. ALP normal. INR 1.5 elevated, mild coagulopathy. RUQ ultrasound in September 2020 shows liver normal but enlarged 8.9 cm. Pancreas appeared normal. Small 5 mm GB polyp. No stone. CBD 3.3 mm. Repeat RUQ sonogram 08/27: RUQ sonogram reviewed which shows coarsened appearing secondary to hepatocellular disease/most likely alcoholic hepatitis. Cholelithiasis, 0.7 cm and GB polyp 0.0 0.6 cm but patient does not have tenderness and Chavez sign. No intrahepatic bile duct dilatation or CBD dilatation. Pericholecystic fluid. Advised to follow-up with surgery and GI. 4. Hereditary hemochromatosis: Last follow-up with Dr. Adams in October 2020. 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 He was recommended phlebotomy 500 cc weekly x 4 and advised to obtain MRI liver and AFP. Ferritin 6 177 in August 29. Goal ferritin less than 150 to prevent cirrhosis. Unclear how much was done in 2020. Advised follow-up in hematology clinic with Dr. Adams. 08/18 and asked to follow-up in GI office 5. Atherosclerotic heart disease status post CABG, chronic HFpEF, mild valvular heart disease, hypertension and dyslipidemia: Had double vessel CABG at the age of 12. No cardiology follow-up since June 2020. 2D echo June 2020 Grossly normal left ventricular size, wall motion, and systolic function. The estimated ejection fraction is 55 %. Trivial mitral valve insufficiency. Trivial tricuspid valve insufficiency. Trivial pulmonic valve insufficiency. Unable to estimate RV systolic pressure/pulmonary artery pressure due to technically difficult study. Transmitral doppler flow suggestive of impaired relaxation of left ventricle Living will/advanced directive/end of life care: Patient does not have living will or advanced directive. His next of kin is his fianc?e. After discussion of benefits/risks procedures involved with full code, DNR CC arrest and DNR CC, the patient opted for full code. Patient does want artificial life support including intubation, tube feed, ventilator and/chest compression, central venous catheter, vasopressor and DC shock if needed Laboratory Results 08/26/24 09:30: WBC 15.5 H, RBC 2.04 L, Hgb 6.8 L, Hct 18.6 L, MCV 91.2, MCH 33.3 H, MCHC 36.6 H, RDW Std Deviation 47.4 H, RDW Coeff of Thang 15.5 H, Plt Count 258, MPV 11.2, Immature Gran % (Auto) 1.700 H, Neut % (Auto) 68.9, Lymph % (Auto) 15.8 L, [place] % (Auto) 10.9 H, Eos % (Auto) 2.3, Baso % (Auto) 0.4, A bsolute Neuts (auto) 10.7 H, Absolute Lymphs (auto) 2.45, Nucleated RBC % 3.0, Differential Comment COMMENT, PT 18.1 H, INR 1.5, Sodium 121 L, Potassium 3.1 L, Chloride 82 L, Carbon Dioxide 28.0, Anion Gap 11, BUN 40 H, Creatinine 1.26 H, Estim Creat Clear Calc 83.28, Est GFR (MDRD) Non-Af 70, BUN/Creatinine Ratio 31.5 H, Glucose 165 H, Calcium 9.2, Total Bilirubin 1.99 H, Direct Bilirubin 1.12 H, AST 184 H, ALT 158 H, Alkaline Phosphatase 107, Total Protein 5.7 L, A lbumin 3.1 L, Globulin 2.6, Albumin/Globulin Ratio 1.2, Lipase 138 H, Blood Type A POSITIVE, Antibody Screen NEGATIVE, Crossmatch See Detail 08/26/24 15:50: Hgb 8.1 L, Hct 22.5 L, GGT Pending, Ethyl Alcohol < 10.1 08/26/24 21:13: Hgb 8.4 L, Hct 23.4 L 08/27/24 02:50: Hgb 8.2 L, Hct 22.8 L 08/27/24 06:34: WBC 11.8 H, RBC 2.70 L, Hgb 8.7 L, Hct 24.7 L, MCV 91.5, MCH 32.2 H, MCHC 35.2, RDW Std Deviation 51.4 H, RDW Coeff of Thang 17.5 H, Plt Count 209, MPV 10.7, Immature Gran % (Auto) 2.000 H, Neut % (Auto) 66.3, Lymph % (Auto) 17.6 L, [place] % (Auto) 10.5 H, Eos % (Auto) 3.1, Baso % (Auto) 0.5, A bsolute Neuts (auto) 7.8 H, Absolute Lymphs (auto) 2.07, Nucleated RBC % 2.5, PT Cancelled, INR Cancelled, Sodium 131 L, Potassium 3.7, Chloride 97 L, Carbon Dioxide 24.4, Anion Gap 9, BUN 23 H, Creatinine 1.17, Estim Creat Clear Calc 89.90, Est GFR (MDRD) Non-Af 76, BUN/Creatinine Ratio 19.7, Glucose 144 H, Calcium 8.5, Total Bilirubin 3.02 H, Direct Bilirubin 1.59 H, AST 262 H, ALT 193 H, Alkaline Phosphatase 105, Total Protein 5.7 L, Albumin 3.1 L, Globulin 2.6, Albumin/Globulin Ratio 1.2 08/27/24 07:50: PT 18.0 H, INR 1.5 Charges/Coding Visit Charges Inpatient E&M: 50297 Subs Hosp L3
[2024-08-27 07:35] LABS: AST(SGOT) 262 U/L (<=37); Alanine Aminotransfer ALT/SGPT 193 U/L (<=46); Albumin, Serum 3.1 g/dL (3.5-5.0); Alkaline Phosphatase 105 U/L (40-129); Anion Gap 9 (5-15); BUN 23 mg/dL (4-19); BUN/Creat Ratio 19.7 RATIO (10-20); Bilirubin, Direct 1.59 mg/dL (0.00-0.30); Calcium,Total 8.5 mg/dL (7.6-11.0); Carbon Dioxide 24.4 mmol/L (21.0-32.0); Chloride 97 mmol/L (98-108); Estimated Creatinine Clearance 89.90 ml/min (50-250); Globulin 2.6 g/dL (2.2-4.2); Glucose 144 mg/dL (70-99); Potassium 3.7 mmol/L (3.3-5.1)
[2024-08-27 08:36] LABS: Prothrombin Time (Protime)PT. 18.0 SECONDS (11.7-14.9)
[2024-08-27] MEDS: Pantoprazole Sodium 40 MG in 0.9% Normal Saline (100mL MB+) 100 ML 300 MG IV ×2 (09:27→20:15)
[2024-08-27] MEDS: Dextrose 5%-Water (1000mL Bag) 1,000 ML 999 ML IV (10:30)
[2024-08-27 13:29] LABS: Anion Gap 9 (5-15); BUN 19 mg/dL (4-19); BUN/Creat Ratio 16.6 RATIO (10-20); Calcium,Total 8.1 mg/dL (7.6-11.0); Carbon Dioxide 24.6 mmol/L (21.0-32.0); Chloride 94 mmol/L (98-108); Estimated Creatinine Clearance 89.90 ml/min (50-250); Glucose 165 mg/dL (70-99); Potassium 3.7 mmol/L (3.3-5.1)
--- NOTE | 2024-08-27 13:50 | CASEMGMT ---
VASILE BUSBY Assessment: Face to Face with pt for initial transition planning/care coordination assessment. VASILE BUSBY introduced self and role at [facility], pt voices understanding and consents to assessment. Pt is A&O x4 and answers all questions appropriately at this time. Pt sitting up in bed in no distress. Care providers, pharmacy, and demographics verified/updated. Admitting Dx: GIB with hypotension, symptomatic Strata Score: 2 PCP:Pt states his PCP retired. Offered local healthcare provider directory and pt declined. He states he will find own PCP. Specialists:Denies Preferred Pharmacy:[facility] Insurance: [employer] Prescription Benefit: yes LNOK: Bianca Christie, sig other Living Arrangements: Pt lives with sig other in a single story home with no steps to enter. Pt reports he is I in ADL/IADLs and denies concerns at home. Transportation: Pt drives self and denies concerns with transportation. DME:Denies HHC/SNF: Denies hx of Pt states no concerns with going home at time of dc. Pt denies use of cigarettes, street drugs or illegal drugs. Pt states he doesn't drink alcohol any longer but would not elaborate on recent use. Pt states no further concerns/needs. CM to follow. Advised pt to ask CM if any further questions/concerns/needs arise, voices understanding. Pt Goal: Home Plan: Home Mag[facility] BURNETTE CM
[2024-08-27] MEDS: 0.9% Saline Lock 10 ML Syringe IV (20:16)
[2024-08-28 03:24] VITALS: BP 137/77; PULSE 90; RESP 16; TEMP 36.9; O2SAT 98
[2024-08-28 03:25] VITALS: BMI 29.6
[2024-08-28 05:56] LABS: Hematocrit 23.1 % (40-54); Hemoglobin 8.0 g/dL (13.0-16.5); Immature Granulocytes Count 0.100 X10^3/uL (0.0-0.0); Mean Corp Hgb Conc 34.6 g/dL (32-36); Mean Corpuscular Volume 93.9 fL (80-94); Mean Platelet Vol. 10.4 fl (6.2-12.0); NRBC Flagged by Analyzer 0.9 % (0-5); Platelet Count 159 K/mm3 (150-450); RBC Distribution Width CV 17.9 % (11.6-14.6); RBC Distribution Width SD 55.4 fl (35.1-43.9); Red Blood Count 2.46 M/mm3 (4.6-6.2); White Blood Count 8.1 K/mm3 (4.4-11.0)
[2024-08-28 06:18] LABS: AST(SGOT) 196 U/L (<=37); Alanine Aminotransfer ALT/SGPT 168 U/L (<=46); Albumin, Serum 2.9 g/dL (3.5-5.0); Alkaline Phosphatase 94 U/L (40-129); Anion Gap 8 (5-15); BUN 16 mg/dL (4-19); BUN/Creat Ratio 14.6 RATIO (10-20); Bilirubin, Direct 1.16 mg/dL (0.00-0.30); Calcium,Total 8.2 mg/dL (7.6-11.0); Carbon Dioxide 26.0 mmol/L (21.0-32.0); Chloride 99 mmol/L (98-108); Estimated Creatinine Clearance 97.82 ml/min (50-250); Globulin 2.2 g/dL (2.2-4.2); Glucose 110 mg/dL (70-99); Potassium 3.8 mmol/L (3.3-5.1)
--- NOTE | 2024-08-28 07:25 | DCINST_ITS ---
Discharge Instructions DC O2, CPAP, BIPAP needs Home O2 Discharge instructions: No Follow Up Care Test Results: Test results from this visit will be discussed in further detail at your follow- up appointment, if applicable. Discharge Plan Admission Admit Date/Time: 08/26/24 11:07 Primary Reason for Your Visit: Esophageal varices, severe upper GI bleed, Attending Provider: Mitesh White Primary Care Provider: Care Physician,Clarita Primary Discharge Orders/Prescriptions Prescriptions: New pantoprazole [Protonix] 40 mg tablet,delayed release (DR/EC) 40 mg PO BID 30 Days Qty: 60 2RF Continued amlodipine 5 mg tablet 5 mg PO DAILY Qty: 21 0RF Changed lisinopril 20 mg tablet 10 mg PO DAILY Qty: 90 3RF Held aspirin [Adult Aspirin Regimen] 81 mg tablet,delayed release (DR/EC) 81 mg PO DAILY Qty: 90 3RF Hold Instructions: Hold for 7 days. Discontinued amlodipine 5 mg tablet 5 mg PO DAILY Qty: 30 11RF Referrals / Follow Up: Care Physician,No Primary [Primary Care Provider] - Zari He NP-C [Med Staff - Adv Practice Prof] - Within 1 Month (Follow-up for variceal bleed) Adithya Adams MD [Med Staff - Active Staff] - Within 1 Month (For homozygous inherited hemochromatosis) Disposition Disposition (needs filled in before D/C Order can be placed): Home, Self Care
[2024-08-28 08:07] LABS: GGTP 28 IU/L (0-65)
[2024-08-28] MEDS: Pantoprazole Sodium 40 MG in 0.9% Normal Saline (100mL MB+) 100 ML 300 MG IV (09:22)
[2024-08-28] MEDS: 0.9% Saline Lock 10 ML Syringe IV (09:22)
[2024-08-28 09:27] VITALS: BP 124/76; PULSE 92; RESP 14; TEMP 36.6; O2SAT 95
--- NOTE | 2024-08-28 11:43 | PCM.DC.SUM ---
Providers Date of Admission: 08/26/24 Date of Discharge: 08/28/24 Primary Care Physician: Clarita Primary Care Phys Consultations 08/26/24 12:27 Consult: Gastroenterology Routine Consulting Provider: [facility] Reason for Consult: GI bleed EMERGENT Consult: No MD Notified: Yes Date Notified: 08/26/24 Time Notified: 11:09 Method of Notification: ED Physician Initiated Reason For Visit: GI BLEED WITH HYPOTENSION, SYMTOMATIC Diagnosis Discharge Diagnosis (1) UGIB (upper gastrointestinal bleed): Status: Acute Code(s): K92.2 - Gastrointestinal hemorrhage, unspecified (2) ABLA (acute blood loss anemia): Status: Acute Code(s): D62 - Acute posthemorrhagic anemia (3) Orthostatic hypotension: Status: Acute Code(s): I95.1 - Orthostatic hypotension Plan This 48-year-old gentleman being admitted for symptomatic severe anemia from acute upper GI bleed 1. Acute severe blood loss anemia due to upper GI bleed suspected variceal bleed: Patient is being admitted in ICU. IV fluid normal saline 2 L bolus/fluid restriction. Type and crossmatch 2 units of PRBC and transfuse 1 unit now. Posttransfusion H&H every 6 hourly. Patient is started on IV PPI every 12 hourly bolus, octreotide drip and IV ceftriaxone. GI consulted. Never had EGD or colonoscopy. Baseline normal saline +40 mEq KCl after bolus completion for 1 L. EGD 08/27/2024 Impressions : - Large (> 5 mm) esophageal varices. - Portal hypertensive gastropathy. 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 Treated with a heater probe. - No specimens collected. 08/27: Patient is being transferred to PCU. Needs H&H monitoring for rebleed. Continue IV PPI and IV ceftriaxone. Octreotide drip discontinued. Diet advanced to soft diet 08/28: Patient is doing well. Repeat H&H 8.0/23%. Patient has diagnosis of homozygous HH is therefore ferrous sulfate not given but follow-up with hematology office with Dr. Adams within a month. 2. Orthostatic hypotension/dizziness from hypovolemia: Patient is symptomatic with dizziness on orthostatic vitals. volume and blood resuscitation. 08/28: Resolved Severe hyponatremia probably chronic: Sodium was improved from 121-131 because patient required massive volume resuscitation because of hypotension. IV fluid D5 ordered 08/28: Sodium 133. After D5W, serum sodium dropped down to 127 and today is 133. 3. Chronic alcoholic hepatitis: Patient transaminases have been elevated in February 2024. Total bilirubin was 4.3, improved to 1.99. ALP normal. INR 1.5 elevated, mild coagulopathy. RUQ ultrasound in September 2020 shows liver normal but enlarged 8.9 cm. Pancreas appeared normal. Small 5 mm GB polyp. No stone. CBD 3.3 mm. Repeat RUQ sonogram 08/27: RUQ sonogram reviewed which shows coarsened appearing secondary to hepatocellular disease/most likely alcoholic hepatitis. Cholelithiasis, 0.7 cm and GB polyp 0.0 0.6 cm but patient does not have tenderness and Chavez sign. No intrahepatic bile duct dilatation or CBD dilatation. Pericholecystic fluid. Advised to follow-up with surgery and GI. 08/28: Follow-up in GI office. Follow-up in surgery 4. Hereditary hemochromatosis: Last follow-up with Dr. Adams in October 2020. 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 He was recommended phlebotomy 500 cc weekly x 4 and advised to obtain MRI liver and AFP. Ferritin 6 177 in August 29. Goal ferritin less than 150 to prevent cirrhosis. Unclear how much was done in 2020. Advised follow-up in hematology clinic with Dr. Adams. 5. Atherosclerotic heart disease status post CABG, chronic HFpEF, mild valvular heart disease, hypertension and dyslipidemia: Had double vessel CABG at the age of 12. No cardiology follow-up since June 2020. 2D echo June 202008/28: Follow-up with the [facility] Grossly normal left ventricular size, wall motion, and systolic function. The estimated ejection fraction is 55 %. Trivial mitral valve insufficiency. Trivial tricuspid valve insufficiency. Trivial pulmonic valve insufficiency. Unable to estimate RV systolic pressure/pulmonary artery pressure due to technically difficult study. Transmitral doppler flow suggestive of impaired relaxation of left ventricle Living will/advanced directive/end of life care: Patient does not have living will or advanced directive. His next of kin is his fianc?e. After discussion of benefits/risks procedures involved with full code, DNR CC arrest and DNR CC, the patient opted for full code. Patient does want artificial life support including intubation, tube feed, ventilator and/chest compression, central venous catheter, vasopressor and DC shock if needed Laboratory Results 08/26/24 09:30: WBC 15.5 H, RBC 2.04 L, Hgb 6.8 L, Hct 18.6 L, MCV 91.2, MCH 33.3 H, MCHC 36.6 H, RDW Std Deviation 47.4 H, RDW Coeff of Thang 15.5 H, Plt Count 258, MPV 11.2, Immature Gran % (Auto) 1.700 H, Neut % (Auto) 68.9, Lymph % (Auto) 15.8 L, [place] % (Auto) 10.9 H, Eos % (Auto) 2.3, Baso % (Auto) 0.4, Absolute Neuts (auto) 10.7 H, Absolute Lymphs (auto) 2.45, Nucleated RBC % 3.0, Differential Comment COMMENT, PT 18.1 H, INR 1.5, Sodium 121 L, Potassium 3.1 L, Chloride 82 L, Carbon Dioxide 28.0, Anion Gap 11, BUN 40 H, Creatinine 1.26 H, Estim Creat Clear Calc 83.28, Est GFR (MDRD) Non-Af 70, BUN/Creatinine Ratio 31.5 H, Glucose 165 H, Calcium 9.2, Total Bilirubin 1.99 H, Direct Bilirubin 1.12 H, AST 184 H, ALT 158 H, Alkaline Phosphatase 107, Total Protein 5.7 L, Albumin 3.1 L, Globulin 2.6, Albumin/Globulin Ratio 1.2, Lipase 138 H, Blood Type A POSITIVE, Antibody Screen NEGATIVE, Crossmatch See Detail 08/26/24 15:50: Hgb 8.1 L, Hct 22.5 L, GGT Pending, Ethyl Alcohol < 10.1 08/26/24 21:13: Hgb 8.4 L, Hct 23.4 L 08/27/24 02:50: Hgb 8.2 L, Hct 22.8 L 08/27/24 06:34: WBC 11.8 H, RBC 2.70 L, Hgb 8.7 L, Hct 24.7 L, MCV 91.5, MCH 32.2 H, MCHC 35.2, RDW Std Deviation 51.4 H, RDW Coeff of Thang 17.5 H, Plt Count 209, MPV 10.7, Immature Gran % (Auto) 2.000 H, Neut % (Auto) 66.3, Lymph % (Auto) 17.6 L, [place] % (Auto) 10.5 H, Eos % (Auto) 3.1, Baso % (Auto) 0.5, Absolute Neuts (auto) 7.8 H, Absolute Lymphs (auto) 2.07, Nucleated RBC % 2.5, PT Cancelled, INR Cancelled, Sodium 131 L, Potassium 3.7, Chloride 97 L, Carbon Dioxide 24.4, Anion Gap 9, BUN 23 H, Creatinine 1.17, Estim Creat Clear Calc 89.90, Est GFR (MDRD) Non-Af 76, BUN/Creatinine Ratio 19.7, Glucose 144 H, Calcium 8.5, Total Bilirubin 3.02 H, Direct Bilirubin 1.59 H, AST 262 H, ALT 193 H, Alkaline Phosphatase 105, Total Protein 5.7 L, Albumin 3.1 L, Globulin 2.6, Albumin/Globulin Ratio 1.2 08/27/24 07:50: PT 18.0 H, INR 1.5 Medications at Discharge Home Medications aspirin 81 mg tablet,delayed release (Adult Aspirin Regimen) 81 mg PO DAILY #90 tabs 05/28/20 Held on 08/28/24. Instructions: Hold for 7 days. amlodipine 5 mg tablet 5 mg PO DAILY #21 tabs 02/19/24 lisinopril 20 mg tablet 10 mg (1/2 x 20 mg) PO DAILY #90 tabs 08/28/24 pantoprazole 40 mg tablet,delayed release (Protonix) 40 mg PO BID 30 days #60 tabs 08/28/24 Weight / BMI Weight Weight: 211 lb 11.2 oz Body Mass Index (BMI) 29.6 ABG / Lab / Microbiology Data 08/28/24 05:14 08/28/24 05:14 Laboratory: Laboratory Results - last 24 hr 08/26/24 15:50: GGT 28 08/27/24 13:00: Sodium 127 L, Potassium 3.7, Chloride 94 L, Carbon Dioxide 24.6, Anion Gap 9, BUN 19, Creatinine 1.17, Estim Creat Clear Calc 89.90, Est GFR (MDRD) Non-Af 76, BUN/Creatinine Ratio 16.6, Glucose 165 H, Calcium 8.1 08/28/24 05:14: WBC 8.1, RBC 2.46 L, Hgb 8.0 L, Hct 23.1 L, MCV 93.9, MCH 32.5 H, MCHC 34.6, RDW Std Deviation 55.4 H, RDW Coeff of Thang 17.9 H, Plt Count 159, MPV 10.4, Immature Gran % (Auto) 1.200 H, Neut % (Auto) 58.9, Lymph % (Auto) 22.5, [place] % (Auto) 12.7 H, Eos % (Auto) 4.2, Baso % (Auto) 0.5, Absolute Neuts (auto) 4.8, Absolute Lymphs (auto) 1.81, Nucleated RBC % 0.9, Sodium 133, Potassium 3.8, Chloride 99, Carbon Dioxide 26.0, Anion Gap 8, BUN 16, Creatinine 1.08, Estim Creat Clear Calc 97.82, Est GFR (MDRD) Non-Af 84, BUN/Creatinine Ratio 14.6, Glucose 110 H, Calcium 8.2, Total Bilirubin 2.24 H, Direct Bilirubin 1.16 H, AST 196 H, ALT 168 H, Alkaline Phosphatase 94, Total Protein 5.1 L, Albumin 2.9 L, Globulin 2.2 D/C Instructions DC O2, CPAP, BIPAP Needs Home O2 Discharge instructions: No Meaningful Use Info Meaningful Use Meaningful Use Diagnoses (Choose all that apply): None applicable Discharge Plan Admission Admit Date/Time: 08/26/24 11:07 Primary Reason for Your Visit: Esophageal varices, severe upper GI bleed, Attending Provider: Mitesh White Primary Care Provider: Care Physician,Clarita Primary Discharge Orders/Prescriptions Prescriptions: New pantoprazole [Protonix] 40 mg tablet,delayed release (DR/EC) 40 mg PO BID 30 Days Qty: 60 2RF Continued amlodipine 5 mg tablet 5 mg PO DAILY Qty: 21 0RF Changed lisinopril 20 mg tablet 10 mg PO DAILY Qty: 90 3RF Held aspirin [Adult Aspirin Regimen] 81 mg tablet,delayed release (DR/EC) 81 mg PO DAILY Qty: 90 3RF Hold Instructions: Hold for 7 days. Discontinued amlodipine 5 mg tablet 5 mg PO DAILY Qty: 30 11RF Referrals / Follow Up: Adithya Adams MD [Med Staff - Active Staff] - Within 1 Month (For homozygous inherited hemochromatosis) Care Physician,No Primary [Primary Care Provider] - Zari He NP-C [Med Staff - Adv Practice Prof] - Within 1 Month (Follow-up for variceal bleed) Polo Soto MD [Med Staff - Active Staff] - Within 1 Month (For GB polyp 6 mm. Gall stone 7 mm.) Tawny Purvis PA [Med Staff - Adv Practice Prof] - Within 1 Month (For coronary artery disease) Disposition Disposition (needs filled in before D/C Order can be placed): Home, Self Care
== END 2024-08-28 12:43 | disposition home or self-care (01) ==
LOC: ED 10:31 → ICU 11:52 → MS3 08-28 11:42 → ICU 11-08 16:30
PROVIDERS: Internal Medicine Gastroenterology; Admitting Provider Internal Medicine; Emergency Provider Emergency Medicine; Visit Provider Internal Medicine
PROC: 0DJ08ZZ Inspection of Upper Intestinal Tract, Via Natural or Artificial Opening Endoscopic (ICD-10-PCS; CPT 43235; principal; 2024-08-26 17:55)
DX: K31.811 Angiodysplasia of stomach and duodenum with bleeding (principal); K76.6 Portal hypertension; I85.00 Esophageal varices without bleeding; I50.32 Chronic diastolic (congestive) heart failure; I11.0 Hypertensive heart disease with heart failure; K70.10 Alcoholic hepatitis without ascites; D62 Acute posthemorrhagic anemia; E87.1 Hypo-osmolality and hyponatremia; E86.1 Hypovolemia; E83.110 Hereditary hemochromatosis; I25.10 Atherosclerotic heart disease of native coronary artery without angina pectoris; I95.1 Orthostatic hypotension; E78.5 Hyperlipidemia, unspecified; F17.290 Nicotine dependence, other tobacco product, uncomplicated; I25.2 Old myocardial infarction; Z95.1 Presence of aortocoronary bypass graft; Z79.82 Long term (current) use of aspirin; Z79.899 Other long term (current) drug therapy; Z86.74 Personal history of sudden cardiac arrest
CPT/HCPCS: 44366; 36415; 36430; 76705; 80048; 80053; 80076; 82077; 82248; 82977; 83690; 85014; 85018; 85025; 85610; 86850; 86900; 86901; 86920; 93005; 93976; 94668; 94762; 96365; 96366; 96367; 96368; 96375; 99221; 99285; C1889; P9016; A4216; G0378; J2405

== ENCOUNTER → 2024-09-15 | Outpatient (CLI) | payer OTHER, SELFPAY ==
[2024-09-15 10:48] LABS: Hematocrit 32.5 % (40-54); Hemoglobin 10.2 g/dL (13.0-16.5); Immature Granulocytes Count 0.010 X10^3/uL (0.0-0.0); Mean Corp Hgb Conc 31.4 g/dL (32-36); Mean Corpuscular Volume 95.6 fL (80-94); Mean Platelet Vol. 9.9 fl (6.2-12.0); NRBC Flagged by Analyzer 0 % (0-5); Platelet Count 157 K/mm3 (150-450); RBC Distribution Width CV 15.2 % (11.6-14.6); RBC Distribution Width SD 53.4 fl (35.1-43.9); Red Blood Count 3.40 M/mm3 (4.6-6.2); White Blood Count 3.9 K/mm3 (4.4-11.0)
[2024-09-15 12:15] LABS: AST(SGOT) 39 U/L (<=37); Alanine Aminotransfer ALT/SGPT 28 U/L (<=46); Albumin, Serum 2.9 g/dL (3.5-5.0); Alkaline Phosphatase 113 U/L (40-129); Anion Gap 10 (5-15); BUN 13 mg/dL (4-19); BUN/Creat Ratio 15.9 RATIO (10-20); Bilirubin, Direct 0.67 mg/dL (0.00-0.30); CORTISOL AM 6.32 ug/dL (6.02-18.40); Calcium,Total 8.3 mg/dL (7.6-11.0); Carbon Dioxide 20.3 mmol/L (21.0-32.0); Chloride 107 mmol/L (98-108); Ferritin 174 ng/mL (37-417); Globulin 3.2 g/dL (2.2-4.2); Glucose 96 mg/dL (70-99); Hepatitis B Surface Antigen Nonreactive (Nonreactive); Hepatitis C Antibody Nonreactive (Nonreactive); Iron 51 ug/dL (65-175); LDH 214 U/L (87-241); Potassium 3.9 mmol/L (3.3-5.1)
[2024-09-15 12:49] LABS: CPK Total, Creatine Kinase 119 U/L (24-195)
[2024-09-16 13:08] LABS: ANTINUCLEAR ANTIBODIES DIRECT Negative (Negative)
[2024-09-19 15:08] LABS: Albumin 2.5 g/dL (2.9-4.4); Anti-Smooth Muscle ABS 21 Units (0-19); Cytoplasmic Ab (C-ANCA) <1:20 titer (Neg:<1:20); GGTP 28 IU/L (0-65); Gamma Globulin 1.6 g/dL (0.4-1.8); IMMUNOFIXATION RESULT,S Comment: (.); Immunoglobulin A 637 mg/dL (90-386); Immunoglobulin G 1460 mg/dL (603-1613); Immunoglobulin M 188 mg/dL (20-172); PROEL- TOTAL PROTEIN 6.0 g/dL (6.0-8.5); Perinuclear Ab (P-ANCA) <1:20 titer (Neg:<1:20)
== END | disposition home or self-care (01) ==
LOC: LAB 10:11
DX: F10.10 Alcohol abuse, uncomplicated (principal); K70.10 Alcoholic hepatitis without ascites; D62 Acute posthemorrhagic anemia; E83.110 Hereditary hemochromatosis
CPT/HCPCS: 36415; 80053; 82248; 82390; 82533; 82550; 82728; 82784; 82977; 83516; 83540; 83615; 84165; 84443; 85025; 86037; 86038; 86225; 86334; 86706; 86708; 86803; 87340

== ENCOUNTER → 2024-10-18 | Outpatient (CLI) | payer OTHER, SELFPAY ==
[2024-10-18 11:19] LABS: Hematocrit 37.2 % (40-54); Hemoglobin 12.1 g/dL (13.0-16.5); Immature Granulocytes Count 0.010 X10^3/uL (0.0-0.0); Mean Corp Hgb Conc 32.5 g/dL (32-36); Mean Corpuscular Volume 89.4 fL (80-94); Mean Platelet Vol. 11.9 fl (6.2-12.0); NRBC Flagged by Analyzer 0 % (0-5); POSITIVE COUNT YES; Platelet Count 87 K/mm3 (150-450); RBC Distribution Width CV 14.5 % (11.6-14.6); RBC Distribution Width SD 47.1 fl (35.1-43.9); Red Blood Count 4.16 M/mm3 (4.6-6.2); White Blood Count 3.9 K/mm3 (4.4-11.0)
[2024-10-18 11:20] LABS: Differential Indicated SCAN CRITERIA MET
[2024-10-18 11:34] LABS: Prothrombin Time (Protime)PT. 15.2 SECONDS (11.7-14.9)
[2024-10-18 11:37] LABS: Differential Comment SCANNED
[2024-10-18 12:12] LABS: AST(SGOT) 35 U/L (<=37); Alanine Aminotransfer ALT/SGPT 22 U/L (<=46); Albumin, Serum 3.5 g/dL (3.5-5.0); Alkaline Phosphatase 113 U/L (40-129); Anion Gap 9 (5-15); BUN 9 mg/dL (4-19); BUN/Creat Ratio 10.2 RATIO (10-20); Calcium,Total 9.3 mg/dL (7.6-11.0); Carbon Dioxide 22.2 mmol/L (21.0-32.0); Chloride 104 mmol/L (98-108); Ferritin 97 ng/mL (37-417); Globulin 3.8 g/dL (2.2-4.2); Glucose 106 mg/dL (70-99); Potassium 4.0 mmol/L (3.3-5.1)
[2024-10-18 19:22] LABS: Iron 100 ug/dL (65-175); Iron Binding Capacity,Total 291 ug/dL (250-450); Iron Binding Capacity,Unsat 191 ug/dL (228-428)
== END | disposition home or self-care (01) ==
LOC: LAB 10:47
PROVIDERS: Referring Provider Nurse Practitioner Acute Care; Visit Provider Nurse Practitioner Acute Care
DX: Z12.11 Encounter for screening for malignant neoplasm of colon (principal); K70.30 Alcoholic cirrhosis of liver without ascites; K70.11 Alcoholic hepatitis with ascites; N28.9 Disorder of kidney and ureter, unspecified; R74.8 Abnormal levels of other serum enzymes; E83.110 Hereditary hemochromatosis
CPT/HCPCS: 36415; 80053; 82105; 82728; 83540; 83550; 85025; 85610

== ENCOUNTER 2024-12-16 09:22 | Day surgery (SDC) | payer OTHER, SELFPAY ==
--- NOTE | 2024-12-14 10:44 | PAT.ANESEVAL ---
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 When Was Last Pacemaker Check QUESTION #4 FULL TEXT: You/Your Family Experience fever (hyperthermia) with Anesthesia Last Oral Intake Last Oral intake: Last Oral Intake NPO since Meds taken in AM with sips of water? Meds patient instructed to take am of surgery PONV PONV - residential builder: PONV - residential builder Female No 12/14/24 10:35 HX of Motion Sickness No 12/14/24 10:35 HX of N/V After Surgery No 12/14/24 10:35 Non-Smoker Yes 12/14/24 10:35 Duration of Surgery greater No 12/14/24 10:35 than 60 minutes Number of Risk Factors 1 12/14/24 10:35 PONV Score Low Risk 12/14/24 10:35 Height & Weight Height & Weight: Anesthesia: Height & Weight Height 5 ft 11 in 10/18/24 10:12 Respiratory Assessment Respiratory Assessment - residential builder: Respiratory Tract Infection Hx - residential builder Hx Respiratory Tract Infection No 12/14/24 10:35 STOP Sleep Apnea STOP Sleep Apnea - residential builder: STOP Sleep Apnea - residential builder Hx Hypertension No 12/14/24 10:35 Hx Sleep Apnea No 12/14/24 10:35 CPAP BIPAP Do you snore loudly (louder No 12/14/24 10:35 than talking or can be heard Do you often feel tired/ No 12/14/24 10:35 fatigued/ sleepy during daytime? Has anyone observed you stop No 12/14/24 10:35 breathing during sleep? STOP Results Negative 12/14/24 10:35 QUESTION #5 FULL TEXT : Do you snore loudly (louder than talking or can be heard through closed doors)? 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 Specify any problems Hx of Preganancy in last 3 N/A 12/14/24 10:35 Months Nurse Filling Out Transfusion NBUCHER 12/14/24 10:35 & Questions: Date: 12/14/24 12/14/24 10:35 Time: 10:36 12/14/24 10:35 Patient unable to answer at this time (ie. confused, unrespo /Reproduction History /Reproductive History - residential builder: /Reproductive Hx- residential builder Hx Now No 12/14/24 10:35 Gestational Age (in weeks): EDC: Hx Hx Para Hx Section SAB No 12/14/24 10:35 [facility] Medical History (Updated 12/14/24 @ 10:40 by Priti Gutierres) Wears glasses Alcohol use Fatty liver Cirrhosis History of GI bleed Former smoker History of echocardiogram History of stress test Cardiology follow-up encounter High blood pressure Heart failure Acute renal insufficiency ETOH abuse Nonrheumatic tricuspid valve regurgitation Hyperlipidemia 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 History of sudden cardiac arrest successfully resuscitated (08/05/06) Home Medications Medication Instructions Recorded Last Taken Type aspirin 81 mg tablet,delayed 81 mg PO DAILY #90 tabs 05/28/20 Unknown Rx release (Adult Aspirin Regimen) peg 3350-sod sulf,[id number]-[id number] See Rx Instructions PO .COMPLEX #2 10/18/24 Unknown Rx 178.7-7.3-0.5-1.12-0.9 gram oral mL soln (Suflave) folic acid 1 mg tablet 1 mg PO DAILY 3 months #90 tabs 11/22/24 Unknown Rx thiamine HCl (vitamin B1) 100 mg 100 mg PO DAILY 3 months #90 tabs 11/22/24 Unknown Rx tablet furosemide 20 mg tablet 40 mg PO DAILY 12/14/24 Unknown History Allergy/AdvReac Type Severity Reaction Status Date / Time No Known Allergies Allergy Verified 12/14/24 10:31 Family History Father Negative for ASCVD Mother Negative for ASCVD Grandfather CVA (cerebral vascular accident) Surgical History History of mandibular surgery History of left heart catheterization (08/06/06) S/P CABG x 2 (08/09/06) Social History Smoking Status: Former smoker pack-years: 12 Electronic Cigarette Use: with nicotine alcohol intake: current alcohol intake frequency: 3 or more drinks per day Alcohol type: beer and hard liquor substance use type: does not use caffeine: Yes Type: coffee Number of servings: 1 what type of physical activity do you participate in: walking frequency: daily Audit: Pertinent Findings HISTORY of Pertinent Findings History of Pertinent Findings: He was age 30, while playing basketball, he had a cardiac arrest which he survived. He was emergently transferred to [facility] where he underwent emergent left heart catheterization by Dr. Rendon, which found significant left main and LAD. His RCA was nondominant and small and free of significant disease. He underwent emergent two-vessel bypass surgery by Dr. Mcdonald with a MONTGOMERY to the LAD and a saphenous vein graft to the circumflex about 12 years ago at [facility]. Pertinent Findings EKG Perinent findings: 08/2024: NSR with prolonged QT Echo (EF%) pertinent findings: 06/2020: EF 55%, trivial MV/ TV, PV insufficiency Recommendation Anesthesia Recommendation Anesthesia recommendation: F/U recommended (EKG on day of surgery for prolonged QT seen 08/2024, otherwise patient can proceed to pre-op)
[2024-12-16] VITALS (8 sets, daily range): BP systolic 94–130; BP diastolic 68–80; PULSE 68–79; RESP 16; TEMP 36.5–36.9; O2SAT 97; BMI 28.5
--- NOTE | 2024-12-16 09:51 | EKG12_ITS ---
Test Reason : PRE PROCEDURE Blood Pressure : */* mmHG Vent. Rate : 72 BPM Atrial Rate : 72 BPM P-R Int : 156 ms QRS Dur : 98 ms QT Int : 388 ms P-R-T Axes : -1 47 60 degrees QTcB Int : 424 ms Normal sinus rhythm Normal ECG No previous ECGs available Confirmed by Rafa Larose ([id number]), editor city JOHNNA AGUILAR ([id number]) on 12/19/2024 1:14:20 PM Referred By: No Primary Care Physician Confirmed By: Rafa Larose
[2024-12-16] MEDS: Lactated Ringers 1,000 ML 15 ML IV (10:00)
--- NOTE | 2024-12-16 10:30 | COLBX_PTH ---
PATIENT: KAYLEE VALDIVIA LOC: EN U#:[id number] AGE/SX: 49/M ROOM: RE12/16/[address]: Dr. Todd Vail DO : 1975 BED: DIS: 12/16/2024 SPEC #: [id number] RECD: 12/16/24 13:43 STATUS: NARDA REQ #: [id number] LAMAR: 12/16/24 10:[address]: Todd Vail DEPT: SURGICAL PATHOLOGY RECD BY: Grzegorz Morris ENTERED: 12/16/24 14:46 SP TYPE: COLON BX OTHR DR: Clarita Primary Care Phys Tissues: A - Descending colon Procedures: Surgery Specimen Level IV HEADER OPERATION: Colonoscopy and polypectomy PRE-OP DIAGNOSIS: Screening TISSUE SUBMITTED: A- Descending polyp MICROSCOPIC DIAGNOSIS A. Descending colon, polyp, biopsy: - Tubular adenoma (deeper sections examined). MICROSCOPIC DESCRIPTION Slides are reviewed. GROSS DESCRIPTION A. Received in fixative is one container labeled with the patient's name and designated "Descending colon polyp." The specimen consists of one irregular fragment of mcnamara tissue that measures 0.4 cm. The specimen is totally submitted in one cassette. SD 12/16/2024 CPT:48805
--- NOTE | 2024-12-16 11:07 | PCM.PRE.AN2 ---
ASA Classification* ASA Classification ASA Classification: 3 Assessment & Plan Anesthesia* Anesthesia Assessment Anesthesia Assessment: Discussed sedation and/or anesthesia options, risks, benefits, and alternatives with patient/parents/legal guardian/POA. Questions invited. The patient/parents/legal guardian/POA seems to understand and agrees to proceed with anesthesia plan. Reviewed the physical assessment, medical history, allergy history and patient home medications list prior to surgery/procedure/anesthetic and documented any changes. Performed airway and anesthesia risk assessments. Anesthesia Type Anesthesia Type: MAC History Source History Obtained from:: Patient and Chart Anesthesia Focused Assessment* Temperature: 98.1 F Pulse Rate: 68 Blood Pressure: 130/80 Respiratory Rate: 16 Pulse Ox: 97 Oxygen Delivery Method: Room Air Airway Assessment Mouth opens: >3 cm Mallampati Score: II Teeth Condition: Caps/Crowns (Top 2 incisors are capped.) and Missing (Missing left lower molar.) Neck Range of motion (ROM): Limited ROM (Slight Decrease) Labs Anesthesia Preop lab: CBC WBC, (4.4-11.0) 3.9 K/mm3 L 10/18/24, 10:50 RBC, (4.6-6.2) 4.16 M/mm3 L 10/18/24, 10:50 Hgb, (13.0-16.5) 12.1 g/dL L 10/18/24, 10:50 Hct, (40-54) 37.2 % L 10/18/24, 10:50 Plt Count, (150-450) 87 K/mm3 L 10/18/24, 10:50 CHEMISTRY Potassium, (3.3-5.1) 4.0 mmol/L 10/18/24, 10:50 Sodium, (133-145) 136 mmol/L 10/18/24, 10:50 BUN, (4-19) 9 mg/dL 10/18/24, 10:50 Creatinine, (0.70-1.20) 0.86 mg/dL 10/18/24, 10:50 Glucose, (70-99) 106 mg/dL H 10/18/24, 10:50 TSH, (0.300-4.200) 2.890 uIU/mL 09/15/24, 10:16 COAG PT, (11.7-14.9) 15.2 SECONDS H 10/18/24, 10:50 Pre-Assessment Diagnosis/Proposed Procedure Planned Operative Procedure(s): CSCOPE Anesthesia History 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 When Was Last Pacemaker Check QUESTION #4 FULL TEXT: You/Your Family Experience fever (hyperthermia) with Anesthesia Last Oral Intake Last Oral intake: Last Oral Intake NPO since 06:15 12/16/24 09:54 Meds taken in AM with sips of water? 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 - die cast technician Female No 12/14/24 10:35 HX of Motion Sickness No 12/14/24 10:35 HX of N/V After Surgery No 12/14/24 10:35 Non-Smoker Yes 12/14/24 10:35 Duration of Surgery greater No 12/14/24 10:35 than 60 minutes Number of Risk Factors 1 12/14/24 10:35 PONV Score Low Risk 12/14/24 10:35 Height & Weight Height & Weight: Anesthesia: Height & Weight Height 5 ft 11 in 12/16/24 09:54 Weight: 92.7 kg 12/16/24 09:54 Body Mass Index (BMI) 28.5 12/16/24 09:54 Respiratory Assessment Respiratory Assessment - die cast technician: Respiratory Tract Infection Hx - die cast technician Hx Respiratory Tract Infection No 12/14/24 10:35 STOP Sleep Apnea STOP Sleep Apnea - die cast technician: STOP Sleep Apnea - die cast technician Hx Hypertension No 12/14/24 10:35 Hx Sleep Apnea No 12/14/24 10:35 CPAP BIPAP Do you snore loudly (louder No 12/14/24 10:35 than talking or can be heard Do you often feel tired/ No 12/14/24 10:35 fatigued/ sleepy during daytime? Has anyone observed you stop No 12/14/24 10:35 breathing during sleep? STOP Results Negative 12/14/24 10:35 QUESTION #5 FULL TEXT : Do you snore loudly (louder than talking or can be heard through closed doors)? 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 Specify any problems Hx of Preganancy in last 3 N/A 12/14/24 10:35 Months Nurse Filling Out Transfusion NBUCHER 12/14/24 10:35 & Questions: Date: 12/14/24 12/14/24 10:35 Time: 10:36 12/14/24 10:35 Patient unable to answer at this time (ie. confused, unrespo /Reproduction History /Reproductive History - die cast technician: /Reproductive Hx- die cast technician Hx Now No 12/14/24 10:35 Gestational Age (in weeks): EDC: Hx Hx Para Hx Section SAB No 12/14/24 10:35 Does the father of the baby or his family experience fever w Father of the baby Malignant Hypertension history comment Active Medications Active Medications: Current Medications Generic Name Dose Route Start Last Admin Trade Name Freq PRN Reason Stop Dose Admin Lactated Ringer's 1,000 mls @ 15 mls/hr 12/16/24 09:45 12/16/24 10:00 IV 15 mls/hr .Q48H ALISSA Administration PFSH Medical History Wears glasses Alcohol use Fatty liver Cirrhosis History of GI bleed Former smoker History of echocardiogram History of stress test Cardiology follow-up encounter High blood pressure Heart failure Acute renal insufficiency ETOH abuse Nonrheumatic tricuspid valve regurgitation Hyperlipidemia History of inferior wall myocardial infarction (08/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 History of sudden cardiac arrest successfully resuscitated (08/05/06) Home Medications Medication Instructions Recorded Last Taken Type aspirin 81 mg tablet,delayed 81 mg PO DAILY #90 tabs 05/28/20 12/13/24 Rx release (Adult Aspirin Regimen) peg 3350-sod sulf,[id number] See Rx Instructions PO .COMPLEX #2 10/18/24 Unknown Rx 178.7-7.3-0.5-1.12-0.9 gram oral mL soln (Suflave) folic acid 1 mg tablet 1 mg PO DAILY 3 months #90 tabs 11/22/24 Unknown Rx thiamine HCl (vitamin B1) 100 mg 100 mg PO DAILY 3 months #90 tabs 11/22/24 Unknown Rx tablet furosemide 20 mg tablet 40 mg PO DAILY 12/14/24 Unknown History Allergy/AdvReac Type Severity Reaction Status Date / Time No Known Allergies Allergy Verified 12/16/24 09:53 Family History Father Negative for ASCVD Mother Negative for ASCVD Grandfather CVA (cerebral vascular accident) Surgical History History of mandibular surgery History of left heart catheterization (08/06/06) S/P CABG x 2 (08/09/06) Social History Smoking Status: Former smoker pack-years: 12 Electronic Cigarette Use: with nicotine alcohol intake: current alcohol intake frequency: 3 or more drinks per day Alcohol type: beer and hard liquor substance use type: does not use caffeine: Yes Type: coffee Number of servings: 1 what type of physical activity do you participate in: walking frequency: daily Review of Systems (Anesthesia) ROS Narrative System reviewed and no additional complaints, except as documented.
--- NOTE | 2024-12-16 11:47 | HP.PCM_ITS ---
HPI - General General Date of Admission: 12/16/24 Date of Service: 12/16/24 Chief Complaint: Screening colonoscopy HPI Narrative KAYLEE VALDIVIA, is a 49 M who presents [ Chief Complaint: Referred for Hemochromatosis. He comes in for screening colonoscopy. Details: OV 09/15/2024 w/ Zari He, RAMAN KAYLEE VALDIVIA, is a 48 M who presents to the office today for FU after [facility] admission for ABLA. Discussed care plan with him at length. Reviewed importance of absolute alcohol abstinence or possible fatal consequences. He denies feeling the need of counseling for alcohol addiction. blood for liver labs furosemide 40mg PO daily spironolactone 100mg PO daily carvedilol 3.125mg PO daily monitor BP daily monitor weight daily x7, then wkly consider elastography consider liver bx consider paracentesis office FU 4wks EGD 08/27/2024 - Large (> 5 mm) esophageal varices. - Portal hypertensive gastropathy. 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 Treated with a heater probe. - No specimens collected. CBC: 09/15/2024 WBC 3.9, HGB 10.2, PLT 157 CMP: 09/15/2024 Na 137, K+ 3.9, Creat 0.81, T. bili 1.30, AST 39, Albumin 2.9 INR: 08/27/2024 WNL (1.5) Fe: 09/15/2024 51 Ferritin: 09/15/2024 174 - Goal Ferritin <150 to prevent further progression of liver disease AFP: not on record MELD: 12 Ceruloplasmin: 09/15/2024 WNL AVTAR: 09/15/2024 WNL AMA: 09/15/2024 WNL ASMA: 09/15/2024 21 (borderline) pANCA: 09/15/2024 WNL Total IgA: 09/15/2024 elevated 637 IgM: 09/15/2024 elevated 188 Ig09/15/2024 WNL TTG IgA: 09/15/2024 WNL TSH: 09/15/2024 WNL Cortisol AM: 09/15/2024 WNL HAV Total Ab: 09/15/2024 negative HBVsA09/15/2024 negative HBVsAb: 09/15/2024 negative HBV Core Ab Total: HCV Ab: 09/15/2024 negative ABD US: 08/26/2024 1. Apparent lobulation of the right kidney. Underlying mass can not be excluded. Further evaluation with CT or MRI of the abdomen with and without contrast is recommended. 2. Coarse appearing liver, likely secondary to underlying hepatocellular disease. Clinical correlation is recommended. 3. Cholelithiasis and gallbladder polyp. Findings are equivocal for acute cholecystitis. Further evaluation with HIDA scan may be beneficial. PARA: not previously performed Weight: 44lb down since last OV on 09/15/2026 Diet: he is not following any dietary restrictions Phlebotomy: denies ever having done in the past - previous evaluation with Dr. Adams - Ferritin 6177 on 09/03/2020. Discussed disease, management with Phlebotomy to keep ferritin less than 150 to prevent cirrhosis. Pt agrees to start Phlebotomy. Plan - Dr. Adithya Adams MD: To start Phlebotomy 500cc weekly x 4. To obtain MRI liver and AFP. MEDS: carvedilol 3.125mg PO daily - ran out and stopped taking 1 week ago spironolactone 100mg PO daily - ran out and stopped taking 1 week ago furosemide 40mg PO daily - ran out and stopped taking 1 week ago EtOH: Previous ETOH use consisted of 6 beers/day + whiskey/vodka(whatever was available) if he didn't work the next day. His goal when drinking was "to get buzzed, not necessarily to get pass-out drunk." He has not had a drink since hospital admission, 08.26.24. Denies need for counseling on alcohol addiction. 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 History of sudden cardiac arrest successfully resuscitated (08/05/06) Home Medications Medication Instructions Recorded Last Taken Type aspirin 81 mg tablet,delayed 81 mg PO DAILY #90 tabs 0 05/28/20 12/13/24 Rx release (Adult Aspirin Regimen) peg 3350-sod sulf,[id number] See Rx Instructions PO .COMPLEX #2 10/18/24 Unknown Rx 178.7-7.3-0.5-1.12-0.9 gram oral mL soln (Suflave) folic acid 1 mg tablet 1 mg PO DAILY 3 months #90 t abs 11/22/24 Unknown Rx thiamine HCl (vitamin B1) 100 mg 100 mg PO DAILY 3 mon ths #90 tabs 11/22/24 Unknown Rx tablet furosemide 20 mg tablet 40 mg PO DAILY 12/14/24 Unkn own History Allergy/AdvReac Type Severity Reaction Status Date / Time No Known Allergies Allergy Verified 12/16/24 09:53 Family History Father Negative for ASCVD Mother Negative for ASCVD Grandfather CVA (cerebral vascular accident) Surgical History History of mandibular surgery History of left heart catheterization (08/06/06) S/P CABG x 2 (08/09/06) Social History Smoking Status: Former smoker pack-years: 12 Electronic Cigarette Use: with nicotine alcohol intake: current alcohol intake frequency: 3 or more drinks per day Alcohol type: beer and hard liquor substance use type: does not use caffeine: Yes Type: coffee Number of servings: 1 what type of physical activity do you participate in: walking frequency: daily ROS Constitutional Constitutional: Denies fatigue, fever(s), poor appetite, weight gain or weight loss Gastrointestinal Gastrointestinal: Denies belching, bloating, change in bowel habits, change in stool character, chewing difficulty, coffee ground emesis, constipation, cramping, diarrhea, dyspepsia, dysphagia, early satiety, excessive flatus, fecal incontinence, heartburn, hematemesis, hematochezia, hemorrhoids, loose stools, melena, nausea, odynophagia, rectal bleeding, tenesmus, vomiting or weight changes Vital Signs Vital Signs Vital Signs: 12/16/24 09:54 12/16/24 09:54 12/16/24 11:21 Temperature 98.1 F 98.1 F Temperature Source Temporal Pulse Rate 68 68 Respiratory Rate 16 16 Respiratory Pattern Normal Blood Pressure 130/80 H 130/80 H Blood Pressure Mean 96 Blood Pressure Source Monitor Blood Pressure Position Semi-Fowlers Blood Pressure Location Right Arm Pulse Ox 97 97 Oxygen Delivery Method Room Air Room Air Weight Weight: 204 lb 5.896 oz Body Mass Index (BMI) 28.5 Physical Exam Const alert, oriented x3, no apparent distress and healthy appearing General Appearance: cooperative GI normal to inspection, nondistended, normoactive bowel sounds, soft to palpation, non-tender and non-distended Percussion: normal to percussion Rectal Exam: deferred Assessment & Plan Assessment/Plan (1) Screening for colon cancer: PLAN: Assessment and Plan Assessment and Plan (1) Alcoholic cirrhosis: Status: Acute (2) Kidney lesion: Status: Acute (3) Screening for colon cancer: Status: Acute (4) Kidney lesion: Status: Acute (5) Hemochromatosis, hereditary: Status: Chronic Comment: Discussed disease, management with Phlebotomy to keep ferritin less than 150 to prevent cirrhosis.]
--- NOTE | 2024-12-16 12:24 | OP.PROVAT_ITS ---
12/16/2024 No Primary Care Physician Re : Colonoscopy procedure for Catarino Reyes Dear Care Physician This procedure was performed on Monday, December 16, 2024. My impressions and recommendations are as follows: Impressions : - Diverticulosis in the recto-sigmoid colon, in the sigmoid colon, in the descending colon and at the splenic flexure. - One 5 mm polyp in the descending colon, removed with a jumbo cold forceps. Resected and retrieved. Recommendations : - Repeat colonoscopy in 5 years for surveillance. - Return to GI office. - Continue present medications. My findings are described in the full procedure note, which is enclosed. If I can be of further assistance, please feel free to contact me at . Sincerely, Todd Vail, 12/16/2024 12:23:50 PM This report has been signed electronically.
--- NOTE | 2024-12-16 12:24 | OP.COLON_ITS ---
Patient Name: Catarino Reyes Procedure Date: 12/16/2024 11:50 AM Date of : 1975 Age: 49 Procedure: Colonoscopy Indications: Screening for colorectal malignant neoplasm Providers: Todd Vail DO Referring MD: No Primary Care Physician Medicines: Monitored Anesthesia Care Patient Profile: This is a 49 year old male. Refer to note in patient chart for documentation of history and physical. Last Colonoscopy: more than 10 years ago. Complications: No immediate complications. Procedure: Pre-Anesthesia Assessment: - Prior to the procedure, a History and Physical was performed, and patient medications and allergies were reviewed. The patient is competent. The risks and benefits of the procedure and the sedation options and risks were discussed with the patient. All questions were answered and informed consent was obtained. Patient identification and proposed procedure were verified by the physician in the pre-procedure area. Mental Status Examination: alert and oriented. Airway Examination: normal oropharyngeal airway and neck mobility. Respiratory Examination: clear to auscultation. CV Examination: normal. Prophylactic Antibiotics: The patient does not require prophylactic antibiotics. Prior Anticoagulants: The patient has taken no anticoagulant or antiplatelet agents except for NSAID medication. ASA Grade Assessment: II - A patient with mild systemic disease. After reviewing the risks and benefits, the patient was deemed in satisfactory condition to undergo the procedure. The anesthesia plan was to use monitored anesthesia care (MAC). Immediately prior to administration of medications, the patient was re-assessed for adequacy to receive sedatives. The heart rate, respiratory rate, oxygen saturations, blood pressure, adequacy of pulmonary ventilation, and response to care were monitored throughout the procedure. The physical status of the patient was re-assessed after the procedure. After I obtained informed consent, the scope was passed under direct vision. Throughout the procedure, the patient's blood pressure, pulse, and oxygen saturations were monitored continuously. The colonoscope was introduced through the anus and advanced to the cecum, identified by appendiceal orifice and ileocecal valve. The colonoscopy was performed without difficulty. The patient tolerated the procedure well. The quality of the bowel preparation was adequate. The ileocecal valve, appendiceal orifice, and rectum were photographed. Scope In: 12:02:22 PM Scope Withdrawal Time 0 hours 11 minutes 44 seconds Scope Out: 12:18:40 PM Total Procedure Duration Time 0 hours 16 minutes 18 seconds Findings: The perianal and digital rectal examinations were normal. Multiple small and large-mouthed diverticula were found in the recto-sigmoid colon, sigmoid colon, descending colon and splenic flexure. A 5 mm polyp was found in the descending colon. The polyp was sessile. The polyp was removed with a jumbo cold forceps. Resection and retrieval were complete. Verification of patient identification for the specimen was done. Estimated blood loss was minimal. Impression: - Diverticulosis in the recto-sigmoid colon, in the sigmoid colon, in the descending colon and at the splenic flexure. - One 5 mm polyp in the descending colon, removed with a jumbo cold forceps. Resected and retrieved. Recommendation: - Repeat colonoscopy in 5 years for surveillance. - Return to GI office. - Continue present medications. Procedure Code(s): --- Professional --- 91462, Colonoscopy, flexible; with biopsy, single or multiple CPT copyright 2021 [employer]. All rights reserved. The codes documented in this report are preliminary and upon supervisor blood review may be revised to meet current compliance requirements. Todd Vail DO 12/16/2024 12:23:50 PM This report has been signed electronically. Number of Addenda: 0 Note Initiated On: 12/16/2024 11:50 AM
--- NOTE | 2024-12-16 12:28 | PCM.POST.ANE ---
Anesthesia: Postop Eval I Current Vital Signs Temperature: 97.7 F Pulse Rate: 79 Blood Pressure: 94/68 Respiratory Rate: 16 Pulse Ox: 97 Oxygen Delivery Method: Room Air Assessment Airway patent: Yes Spontaneous unlabored respirations: Yes Mental status: Asleep nausea: No Vomiting: No Anesthesia Complication: No Fluid Hydration Crystalloid volume administer (ml): 500 Total IV fluid infused: 500 Progress Note Anesthesia document: Postop Eval 1 completed: Yes
--- NOTE | 2024-12-16 12:37 | PCM.POSTANE2 ---
Anesthesia Postop Eval I Sum Postop Eval Completion status Anesthesia document: Postop Eval 1 completed: Yes Anesthesia Postop Eval I Summary Anesthesia Postop Eval I Summary: Anesthesia Postop Eval I: Assessment Summary Airway patent Yes 12/16/24 12:29 [email or web address] Spontaneous unlabored Yes 12/16/24 12:29 [email or web address] respirations Mental status Asleep 12/16/24 12:29 [email or web address] nausea No 12/16/24 12:29 [email or web address] Vomiting No 12/16/24 12:29 [email or web address] Anesthesia Postop Eval I: Fluid Summary Crystalloid volume administer 500 12/16/24 12:29 [email or web address] (ml) Colloids volume administered ( ml) Blood Product volume administered (ml) Total IV fluid infused 500 12/16/24 12:29 [email or web address] Anesthesia Postop Eval I: Summary Notes Anesthesia Complication No 12/16/24 12:29 [email or web address] Anesthesia Complication Comment: Post-operative progress note Anesthesia: Postop Eval II Evaluation Mental status: Awake Pain Level: 0 nausea: No Vomiting: No Complications Anesthesia Complication: No
== END 2024-12-16 13:04 | disposition home or self-care (01) ==
LOC: EN 09:24 → AC 09:25
PROVIDERS: Visit Provider Internal Medicine Gastroenterology
DX: Z12.11 Encounter for screening for malignant neoplasm of colon (principal); K70.30 Alcoholic cirrhosis of liver without ascites; I50.9 Heart failure, unspecified; K57.30 Diverticulosis of large intestine without perforation or abscess without bleeding; Z87.891 Personal history of nicotine dependence; E83.110 Hereditary hemochromatosis; I25.10 Atherosclerotic heart disease of native coronary artery without angina pectoris; N28.9 Disorder of kidney and ureter, unspecified; E78.5 Hyperlipidemia, unspecified; K63.5 Polyp of colon; Z95.1 Presence of aortocoronary bypass graft
CPT/HCPCS: 45380; 88305; 93005; J2405